=== PATIENT | female | born 1950 | race Caucasian/White ===

== ENCOUNTER → 2016-08-18 | Outpatient (CLI) | payer BC ==
[~2016-08-18] MED LIST: ACC10 PO; ALBINS/ INH; ALBU0.08 INH; ALBUAER INH; APR25 PO; ASPI-435 PO; CARB6.5D11 INT OCU; CLR10 PO; FLNIN NAE; FLUT0.15 NAE; FLUT220A INH; FLVHFA110 INH; HYDRSOL30; INSDGI SC; INSU100I SQ; INSU100I2 SQ; KETO0.0216 OP; KETO0.0216 OPB; LORA-741 PO; MULT-506 PO; PANT40TA PO; POLY335019 PO; PRT/20 PO; QUIN40TA PO; VNTHFA/IN INH; [UNRECOGNIZED DRUG - SUPPLY] NAE
--- NOTE | 2016-08-18 12:45 | DIAGNOSTIC IMAGING REPORT ---
LEFT HAND MIN 3 VIEWS CLINICAL HISTORY: LEFT HAND PAIN/TRIGGER FINGER pain COMPARISON: None. DISCUSSION: Moderate generalized osteopenia of the major osseous structures. Vasquez a potential partial periarticular distribution. Possible early rheumatoid variant is considered. No well-defined acute bony abnormality. Alignment is anatomic. There is no evidence for soft tissue swelling. IMPRESSION: Probable developing rheumatoid change. No acute bony abnormality. Electronically signed by: Ruben Corea M.D. 08/18/2016 12:44 PM Dictated Date/Time: 08/18/2016 12:43 PM
== END | disposition home or self-care (01) ==
LOC: C.RDSM 10:40
PROVIDERS: ATTEND Physical Medicine & Rehabilitation Sports Medicine
DX: M65.30 Trigger finger, unspecified finger (principal)

== ENCOUNTER → 2016-09-06 | Day surgery (SDC) | payer BC ==
[2016-08-19 08:04] VITALS: Ht 162.6 cm; Wt 96.8 kg
[~2016-09-06] VITALS: Ht 162.6 cm; Wt 96.8 kg
[~2016-09-06] MED LIST changes: +ATROPINE SULFATE 0.1 MG/ML 5ML SYR IV PRN; +BUPIVACAINE/EPINEPHRINE 0.5% MPF 1:200,000 30 ML VIAL ONE; +CLINDAMYCIN PHOS 150 MG/ML 2 ML VIAL IV SCH; +EpHEDrine SULFATE INJ 50 MG/ML AMP IV PRN; +FENTANYL CITRATE INJ 50 MCG/1 ML 2 ML VIAL IV PRN; +FENTANYL CITRATE INJ 50 MCG/1 ML 2 ML VIAL ONE; -HYDRSOL30; +LACTATED RINGER'S 1000ML 1,000 ML IV SCH; +LIDOCAINE HCL 1% 20 ML VIAL ONE; +LIDOCAINE HCL 2% 2 ML VIAL (20MG/ML) ONE; +MIDAZOLAM HCL 1 MG/ML 2ML VIAL ONE; +MoRPHine SULFATE 2 MG/ML CARP IV PRN; +MoRPHine SULFATE 4 MG/ML 1 ML CARP\\VIAL IV PRN; +ONDANSETRON INJ 2 MG/ML 2 ML VIAL IV PRN; +OXYCODONE/ACETAMINOPHEN 5-325 TAB PO PRN; +PROPOFOL IV EMULSION 10 MG/ML 20 ML VIAL IV ONE
--- NOTE | 2016-09-06 06:47 | History & Physical Bridge - SC ---
H&P Re-Evaluation Bridge Note: I have examined the patient, reviewed the History & Physical and in the interval since the performance of the History & Physical I have noted the following changes of clinical significance: No changes noted
[2016-09-06 07:46] VITALS: TEMP 36.3
--- NOTE | 2016-09-06 07:51 | Discharge Instructions-SurgCtr ---
Discharge Instructions Visit Reason for Visit: Left Middle Trigger Finger Discharge Discharge Diagnosis / Problem: S/P L MF Trigger finger release. Discharge Goals Goal(s): Decrease discomfort, Improve function, Increase independence Activity Recommendations Activity Limitations: per Instructions/Follow-up section May Resume Sexual Activity: when tolerated Shower/Bathe: may shower/bathe in 3 days Anesthesia . Post Anesthesia Instructions: If you have had General Anesthesia or IV Sedation: * Do not drive today. * Resume driving when surgeon permits. * Do not make important decisions or sign legal documents today. * Call surgeon for: 1. Temperature elevations greater than 101 degrees F. 2. Uncontrollable pain. 3. Excessive bleeding. 4. Persistent nausea and vomiting. 5. Medication intolerance (nausea, vomiting or rash). * For nausea and vomiting use only clear liquids such as: tea, soda, bouillon until nausea subsides, then gradually increase diet as tolerated. * If you have any concerns or questions, call your surgeon's office. If physician is unavailable and it is an emergency, call 911 or go to the nearest emergency room. . Instructions / Follow-Up Instructions / Follow-Up Dr. Edwards in 10-15 days PT 2-3 days Diet Recommendations Home Diet: resume previous diet Procedures Procedures Performed: Left Middle Finger Open Trigger Finger Release Pending Studies Studies pending at discharge: no Medical Emergencies . Who to Call and When: Medical Emergencies: If at any time you feel your situation is an emergency, please call 911 immediately. . Non-Emergent Contact Non-Emergency issues call your: Surgeon Call Non-Emergent contact if: temperature is above 101.5, your pain is not controlled, wound has increased drainage, wound has increased redness . . "Provider Documentation" section prepared by Porfirio Edwards.
--- NOTE | 2016-09-06 07:52 | [facility] Post Operative Brief Note ---
Immediate Operative Summary Operative Date Sep 06, 2016. Pre-Operative Diagnosis Left Middle Finger Trigger Digit Post-Operative Diagnosis Same Procedure(s) Performed Left Middle Finger Open Trigger Finger Release Surgeon Dr. Edwards Dietetic Tech Surgeon(s) Dr. Hale Estimated Blood Loss 3 ML Findings Thickened synovium L MF Flexor tendon sheath. Specimens A. Left Middle Finger Synovium Tendon Sheath Drains n/a Anesthesia Local + sedation Complication(s) None Disposition Recovery Room / PACU (Stable)
--- NOTE | 2016-09-06 07:56 | [facility] Operative Report ---
Operative Report Operative Date Sep 06, 2016. Pre-Operative Diagnosis Left Middle Finger Trigger Digit Post-Operative Diagnosis Same Procedure(s) Performed Left Middle Finger Open Trigger Finger Release Surgeon Dr. Edwards Photocopying Equipment Repairer Surgeon(s) Dr. Hale Estimated Blood Loss 3 ML Findings Thickened synovium L MF Flexor tendon sheath. Fluids (cc crystalloids) 500 Specimens A. Left Middle Finger Synovium Tendon Sheath Drains n/a Anesthesia Local + sedation Complication(s) None Disposition Recovery Room / PACU (Stable) Implants n/a Indications The patient is a 66 year old female with a painful left middle finger trigger her that has not responded to conservative treatment. The patient understands the risks of surgery, which include but are not limited to: bleeding, infection , re-operation, damage to nerves and arteries, and continued pain. The patient understands all of these instructions and explanations, all of their questions have been satisfactorily addressed. The patient has elected to proceed with surgery and the informed consent was signed. Description of Procedure The patient was taken to the Operating Room and placed in the supine position on the operating table. After a multidisciplinary time-out was performed identifying my initials on the left middle finger as the correct and operative limb, the patient agreed. Prior to the incision being made, 600 milligrams of intravenous clindamycin was given. The left arm was prepped and draped in the usual Orthopaedic sterile fashion. A digital nerve block was performed with 6 cc of a 50:50 mix of 1% Lidocaine and 0.5% Bupivacaine plain in the standard fashion. The above mixture was injected along the planned incision for another 2 cc. After the local anesthetic had taken affect, a small 1 cm incision was made in the simental crease in line with the middle finger. This was carried down to the A1 bonifacio. The A1 bonifacio was incised and a small portion was excised as well as some synovium for specimen. The right angle clamp was used to deliver the flexor tendons into the wound. The tendon then glided without catching or locking. The patient was asked to move flex her left middle finger and there was no catching or locking. The wound and tendon sheath were copiously irrigated. The skin was closed with 4-0 Nylon. The incision was covered with Xeroform, 4x4's, sterile cast padding and an JOSE MANUEL. The sponge and needle counts were correct. I attest to the content of the Intraoperative Record and any orders documented therein. Any exceptions are noted below.
--- NOTE | 2016-09-06 08:14 | Anesthesia Progress Nt - [facility] ---
Anesthesia Post Op Note Date & Time Sep 06, 2016 at 08:15 Vital Signs Pain Intensity: 0 Vital Signs Past 12 Hours Date Time Temp Pulse Resp B/P Pulse Ox O2 Delivery O2 Flow Rate FiO2 09/06/16 07:46 36.3 70 16 107/69 95 Room Air 09/06/16 06:29 36.5 61 18 157/82 96 Room Air Notes Mental Status: alert / awake / arousable, participated in evaluation Pt Amnestic to Procedure: Yes Nausea / Vomiting: adequately controlled Pain: adequately controlled Airway Patency, RR, SpO2: stable & adequate BP & HR: stable & adequate Hydration State: stable & adequate Anesthetic Complications: no major complications apparent
[2016-09-06 08:25] VITALS: BP 139/80; PULSE 57; O2SAT 95
--- NOTE | 2016-09-06 13:23 | [facility] Post Operative Brief Note ---
Immediate Operative Summary Operative Date Sep 06, 2016. Pre-Operative Diagnosis Left Middle Finger Trigger Digit Post-Operative Diagnosis Same Procedure(s) Performed Left Middle Finger Open Trigger Finger Release Surgeon Dr. Edwards Funeral Greeter Surgeon(s) Dr. Hale Estimated Blood Loss 3 ML Fluids (cc crystalloids) 500 Specimens A. Left Middle Finger Synovium Tendon Sheath Complication(s) None Disposition PCU
== END | disposition home or self-care (01) ==
LOC: X.SURG 06:14
PROVIDERS: ATTEND Orthopaedic Surgery Sports Medicine
DX: M65.332 Trigger finger, left middle finger (principal); E11.9 Type 2 diabetes mellitus without complications; Z79.4 Long term (current) use of insulin; I10 Essential (primary) hypertension; E78.5 Hyperlipidemia, unspecified; E66.9 Obesity, unspecified; Z79.899 Other long term (current) drug therapy

== ENCOUNTER → 2016-09-27 | Outpatient (CLI) | payer BC ==
[~2016-09-27] MED LIST changes: -ATROPINE SULFATE 0.1 MG/ML 5ML SYR IV PRN; -BUPIVACAINE/EPINEPHRINE 0.5% MPF 1:200,000 30 ML VIAL ONE; -CLINDAMYCIN PHOS 150 MG/ML 2 ML VIAL IV SCH; -EpHEDrine SULFATE INJ 50 MG/ML AMP IV PRN; -FENTANYL CITRATE INJ 50 MCG/1 ML 2 ML VIAL IV PRN; -FENTANYL CITRATE INJ 50 MCG/1 ML 2 ML VIAL ONE; -LACTATED RINGER'S 1000ML 1,000 ML IV SCH; -LIDOCAINE HCL 1% 20 ML VIAL ONE; -LIDOCAINE HCL 2% 2 ML VIAL (20MG/ML) ONE; -MIDAZOLAM HCL 1 MG/ML 2ML VIAL ONE; -MoRPHine SULFATE 2 MG/ML CARP IV PRN; -MoRPHine SULFATE 4 MG/ML 1 ML CARP\\VIAL IV PRN; -ONDANSETRON INJ 2 MG/ML 2 ML VIAL IV PRN; -OXYCODONE/ACETAMINOPHEN 5-325 TAB PO PRN; -PROPOFOL IV EMULSION 10 MG/ML 20 ML VIAL IV ONE
--- NOTE | 2016-09-27 13:55 | MAMMOGRAPHY REPORT ---
BILATERAL DIGITAL SCREENING MAMMOGRAM WITH CAD: 09/27/2016 CLINICAL HISTORY: Routine screening. Patient has no complaints. TECHNIQUE: Bilateral CC and MLO views were obtained. Current study was also evaluated with a Comput er Aided Detection (CAD) system. COMPARISON: Comparison is made to exams dated: 09/03/2014 mammogram, 08/28/2013 mammogram, 08/24/2012 mammogram, 08/18/2011 mammogram, 08/17/2010 mammogram, and 08/13/2009 mammogram - [facility] nter. BREAST COMPOSITION: The tissue of both breasts is almost entirely fatty. FINDINGS: There are a few stable round and punctate microcalcifications in the breasts. No new susp icious mass, architectural distortion or cluster of microcalcifications is seen. IMPRESSION: ACR BI-RADS CATEGORY 1: NEGATIVE There is no mammographic evidence of malignancy. A 1 year screening mammogram is recommended. The p atient will receive written notification of the results. Approximately 10% of breast cancers are not detected with mammography. A negative mammographic repor t should not delay biopsy if a clinically suggestive mass is present. Radha Go M.D. ay/:09/27/2016 08:06:54 Autocad Technician: Maria Teresa Garza, [facility] letter sent: Normal 1/2 BI-RADS Code: ACR BI-RADS Category 1: Negative
== END | disposition home or self-care (01) ==
LOC: C.MAMM 07:23
PROVIDERS: ATTEND Family Medicine
DX: Z12.31 Encounter for screening mammogram for malignant neoplasm of breast (principal)

== ENCOUNTER 2016-10-19 22:35 | Emergency (ER) | payer BC ==
[~2016-10-19] VITALS: Ht 162.6 cm; Wt 99.9 kg
[~2016-10-19 22:35] MED LIST changes: -ALBINS/ INH; -ASPI-435 PO; -CLR10 PO; -FLUT0.15 NAE; -FLVHFA110 INH; -INSU100I2 SQ; -KETO0.0216 OPB; -PRT/20 PO; -QUIN40TA PO; -VNTHFA/IN INH
[2016-10-19 22:37] VITALS: TEMP 36.5; Ht 162.6 cm; Wt 99.9 kg
[2016-10-19] MEDS ORDERED: SODIUM CHLORIDE 0.9% 1000ML 1,000 ML IV STA (22:52)
--- NOTE | 2016-10-19 22:55 | EMERGENCY ROOM VISIT NOTE ---
History Report prepared by Yousuf: Lisa Daniels Under the Supervision of: Dr. Kemal Almaguer M.D. 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 The patient states that earlier today she felt increase in fatigue and laid down and took a nap. She states that when she woke up she felt a "flutter" in her chest. She states it also felt like she would lose her breath for a minute when the flutter occurred. The patient states she then checked her pulse and states that it would be beating strong and then feel like it would stop beating. She states this correlated with her SOB feeling . The patient states she has also had diarrhea and abdominal pain the last few days and thought it was due to a flair up of irritable bowel syndrome. The patient states she has a history of asthma and that it has been doing well and she only uses her inhaler once in a while. The patient denies any chest pain. 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 A total of 10 systems reviewed and were otherwise negative. Past Medical & Surgical Medical Problems: (1) Irritable bowel syndrome (IBS) Family History Patient reports no known family medical history. Social History Smoking Status: Never Smoker Marital Status: Housing Status: lives with significant other Occupation Status: retired Current/Historical Medications Scheduled Aspirin (Aspirin 81), 81 MG PO DAILY Fluticasone Propionate (Flovent Hfa), 2 PUFFS INH BID Fluticasone Propionate (Nasal) (Flonase Allergy Relief), 2 SPRAYS MOI DAILY Hydralazine Hcl (Apresoline), 25 MG PO TID Insulin Glargine (Lantus), 20-22 UNITS SC HS Insulin Lispro (Human) (Humalog Kwikpen), 10-14 UNITS SQ AC Multivitamin (Multivitamin), 1 TAB PO DAILY Pantoprazole (Protonix), 20 MG PO DAILY Polyethylene Glycol 3350 (Miralax), 0.5 DOSE PO QAM Quinapril Hcl (Accupril), 40 MG PO DAILY Scheduled PRN Albuterol Hfa (Ventolin Hfa), 2 PUFFS INH QID PRN for cough/wheezing Albuterol Sulf (Proventil 0.083% 2.5MG/3ML), 2.5 MG INH Q4 PRN for Wheezing Carbamide Peroxide (Otic) (Ear Drops), 1 DROP INT OCU QID PRN for PRESSURE Ketotifen Fumarate (Ophth) (Zaditor 0.025% Oph), 1 DROP OPB Q8H PRN for ALLERGY SX Loratadine (Claritin), 10 MG PO DAILY PRN for allergy sx Lorazepam (Ativan), 0.5 MG PO DAILY PRN for Anxiety Allergies Coded Allergies: Cefdinir (Verified Allergy, Intermediate, UTICARIA, 10/19/16) Glyburide (Verified Allergy, Intermediate, ITCHING, 10/19/16) Moxifloxacin (Verified Allergy, Intermediate, UTICARIA, 10/19/16) Penicillins (Verified Allergy, Intermediate, HIVES, 10/19/16) Sulfa Antibiotics (Verified Allergy, Intermediate, HIVES, 10/19/16) Sulfamethoxazole w/Trimethoprim (Verified Allergy, Intermediate, HIVES, 05/27) Trimethoprim (Verified Allergy, Intermediate, HIVES, 10/19/16) Quinolones (Verified Allergy, Unknown, HEADACHES, 10/19/16) Sulfamethoxazole (Verified Allergy, Unknown, 10/19/16) Ciprofloxacin (Verified Adverse Reaction, Mild, HEADACHES, 10/19/16) Physical Exam Vital Signs Date Time Temp Pulse Resp B/P Pulse Ox O2 Delivery O2 Flow Rate FiO2 10/19/16 23:58 78 20 135/76 98 10/19/16 22:58 96 Room Air 10/19/16 22:50 76 10/19/16 22:48 96 Room Air 10/19/16 22:47 82 20 192/74 10/19/16 22:45 96 Room Air 10/19/16 22:37 36.5 80 16 192/82 96 Room Air Physical Exam GENERAL: Patient is a healthy-appearing well-nourished HEAD: Normocephalic atraumatic EYES: Ocular movements intact pupils equal and react to light OROPHARYNX mucous membranes are moist no exudates present no erythema or edema present NECK: Supple no nuchal rigidity CHEST: Good equal expansion LUNGS: Clear and equal to auscultation CARDIAC: Normal S1 and S2 ABDOMEN: Soft nontender no guarding BACK: No CVA tenderness EXTREMITIES: No pain upon palpation normal muscle strength in all groups no clubbing cyanosis or edema NEURO: Patient is following commands is answering questions appropriately. Alert and oriented x3 Cranial Nerves 2-12 grossly intact Medical Decision & Procedures ER Provider Diagnostic Interpretation: X-ray results as stated below per interpretation by me: Chest X-Ray 1 View: no evidence of pneumonia, congestion, or pneumothorax. No acute process. Laboratory Results 10/19/16 22:55 Red Blood Count 4.80, Mean Corpuscular Volume 87.7, Mean Corpuscular Hemoglobin 29.8, Mean Corpuscular Hemoglobin Concent 34.0, Mean Platelet Volume 10.2, Neutrophils (%) (Auto) 56.5, Lymphocytes (%) (Auto) 32.0, Monocytes (%) (Auto) 8.7, Eosinophils (%) (Auto) 2.2, Basophils (%) (Auto) 0.4, Neutrophils # (Auto) 4.68, Lymphocytes # (Auto) 2.65, Monocytes # (Auto) 0.72, Eosinophils # (Auto) 0.18, Basophils # (Auto) 0.03 10/19/16 22:55 Test 10/19/16 22:55 White Blood Count 8.28 K/uL (4.8-10.8) Red Blood Count 4.80 M/uL (4.2-5.4) Hemoglobin 14.3 g/dL (12.0-16.0) Hematocrit 42.1 % (37-47) Mean Corpuscular Volume 87.7 fL (80-100) Mean Corpuscular Hemoglobin 29.8 pg (25-34) Mean Corpuscular Hemoglobin Concent 34.0 g/dl (32-36) Platelet Count 277 K/uL (130-400) Mean Platelet Volume 10.2 fL (7.4-10.4) Neutrophils (%) (Auto) 56.5 % Lymphocytes (%) (Auto) 32.0 % Monocytes (%) (Auto) 8.7 % Eosinophils (%) (Auto) 2.2 % Basophils (%) (Auto) 0.4 % Neutrophils # (Auto) 4.68 K/uL (1.4-6.5) Lymphocytes # (Auto) 2.65 K/uL (1.2-3.4) Monocytes # (Auto) 0.72 K/uL (0.11-0.59) Eosinophils # (Auto) 0.18 K/uL (0-0.5) Basophils # (Auto) 0.03 K/uL (0-0.2) RDW Standard Deviation 45.2 fL (36.4-46.3) RDW Coefficient of Variation 13.9 % (11.5-14.5) Immature Granulocyte % (Auto) 0.2 % Immature Granulocyte # (Auto) 0.02 K/uL (0.00-0.02) Anion Gap 9.0 mmol/L (3-11) Est Creatinine Clear Calc Drug Dose 67.1 ml/min Estimated GFR () 71.9 Estimated GFR (Non- 62.1 BUN/Creatinine Ratio 16.1 (10-20) Calcium Level 8.5 mg/dl (8.5-10.1) Magnesium Level 2.2 mg/dl (1.8-2.4) Total Bilirubin 0.3 mg/dl (0.2-1) Direct Bilirubin < 0.1 mg/dl (0-0.2) Aspartate Amino Transf (AST/SGOT) 12 U/L (15-37) Alanine Aminotransferase (ALT/SGPT) 20 U/L (12-78) Alkaline Phosphatase 211 U/L (45-117) Total Creatine Kinase 112 U/L (26-192) Creatine Kinase MB 1.5 ng/ml (0.5-3.6) Creatine Kinase MB Ratio 1.3 (0-3.0) Troponin I < 0.015 ng/ml (0-0.045) Total Protein 7.1 gm/dl (6.4-8.2) Albumin 3.7 gm/dl (3.4-5.0) Lipase 117 U/L (73-393) Labs reviewed by ED physician. Medications Administered Medications (Trade) Dose Ordered Sig/Katherine Route Start Time Stop Time Status Last Admin Dose Admin Sodium Chloride (Nss 1000ml) 1,000 ml @ 999 mls/hr Q1H1M STAT IV 10/19/16 22:52 10/19/16 23:52 DC 10/19/16 23:03 999 MLS/HR Hydralazine HCl (Apresoline Tab) 25 mg NOW STAT PO 10/19/16 22:54 10/19/16 22:55 DC 10/19/16 23:07 25 MG Potassium Chloride (Klor-Con M10) 30 meq NOW STAT PO 10/19/16 23:29 10/19/16 23:30 DC 10/19/16 23:53 30 MEQ ECG Indication: chest pain Rate (beats per minute): 81 Rhythm: sinus rhythm Findings: PVC, no acute ischemic change, no ectopy ED Course 2242: Past medical records reviewed. The patient was evaluated in room A2. A complete history and physical examination was performed. 2251: Ordered Sodium Chloride 1,000 ml @ 999 mls/hr IV, 2253: Ordered Hydralazine HCl 25 mg PO. 9: Ordered Potassium Chloride 30 meq PO. 2345: Upon reexamination the patient is resting comfortably. I discussed results and treatment plan with the patient. She verbalizes agreement and understanding. The patient is ready for discharge. Medical Decision Differential diagnosis: Etiologies such as cardiac ischemia, aortic dissection, pulmonary embolism, pneumonia, pneumothorax, musculoskeletal, infections, pericarditis, myocarditis , esophageal rupture, gastrointestinal, as well as others were entertained. This is a 66-year-old female who presents emergency department complaining of palpitations. Upon arrival to the emergency department the patient is actively having PVCs which I believe are the cause of her palpitations. She is not nature fibrillation. She denies any chest pain or shortness of breath and. I will note that the patient's sugar is elevated at 200. For this reason she was given IV fluids. The patient's blood pressure is also elevated however I believe that this is more from anxiety than anything else. I discussed the need for follow-up with the patient's primary care physician for her hypertension. She is also going to follow-up with cardiology for her PVCs. She was given potassium in the emergency department and I cautioned her on better control of her sugar. Patient was in agreement with the treatment plan. Impression Primary Impression: PVC (premature ventricular contraction) Additional Impressions: Hyperglycemia Hypertension Scribe Attestation The scribe's documentation has been prepared under my direction and personally reviewed by me in its entirety. I confirm that the note above accurately reflects all work, treatment, procedures, and medical decision making performed by me. Departure Information Dispostion Home / Self-Care Referrals Katalina Miller M.D. (PCP) Forms IMPORTANT VISIT INFORMATION Patient Instructions My [facility] Additional Instructions Need follow up with PCP for hypertension Please follow up with DR Khan's office for PVC's You have been examined and treated today on an emergency basis only. This is not a substitute for, or an effort to provide, complete comprehensive medical care. It is impossible to recognize and treat all injuries or illnesses in a single emergency department visit. It is therefore important that you follow up closely with Dr Miller. Call as soon as possible for an appointment. Thank you for your time and consideration. I look forward to speaking with you again soon. Please don't hesitate to call us if you have any questions. Problem Qualifiers Additional Impressions: Hypertension Hypertension type: unspecified secondary hypertension Qualified Codes: I15.9 - Secondary hypertension, unspecified
[2016-10-19 22:58] VITALS: O2SAT 96
[2016-10-19 23:07] LABS: BASO % 0.4 %; BASO ABS # 0.03 K/uL (0-0.2); COMPLETE YES; EOS % 2.2 %; HEMATOCRIT 42.1 % (37-47); IG% 0.2 %; LYMPH ABS # 2.65 K/uL (1.2-3.4); MEAN CELL VOLUME 87.7 fL (80-100); MEAN CORPUSCULAR HEMOGLOBIN 29.8 pg (25-34); MEAN PLATELET VOLUME 10.2 fL (7.4-10.4); MONO % 8.7 %; NEUT % 56.5 %; PLATELET COUNT 277 K/uL (130-400); WHITE BLOOD COUNT 8.28 K/uL (4.8-10.8)
[2016-10-19] MEDS ORDERED: ASPI-435 PO (23:21)
[2016-10-19] MEDS ORDERED: CLR10 PO (23:22)
[2016-10-19] MEDS ORDERED: ALBINS/ INH (23:24)
[2016-10-19] MEDS ORDERED: VNTHFA/IN INH (23:24)
[2016-10-19 23:26] LABS: ALT/SGPT 20 U/L (12-78); BLOOD UREA NITROGEN 16 mg/dl (7-18); BUN/CREATININE RATIO 16.1 (10-20); CALCIUM 8.5 mg/dl (8.5-10.1); CARBON DIOXIDE 26 mmol/L (21-32); CHLORIDE 106 mmol/L (98-107); CREATININE 0.96 mg/dl (0.60-1.20); GLUCOSE 191 mg/dl (70-99); MAGNESIUM 2.2 mg/dl (1.8-2.4); POTASSIUM 3.7 mmol/L (3.5-5.1); SODIUM 141 mmol/L (136-145)
[2016-10-19] MEDS ORDERED: PRT/20 PO (23:27)
[2016-10-19] MEDS ORDERED: QUIN40TA PO (23:27)
[2016-10-19] MEDS ORDERED: MULT-506 PO (23:27)
[2016-10-19 23:29] LABS: ALKALINE PHOSPHATASE 211 U/L (45-117); AST/SGOT 12 U/L (15-37); CKMB/CK RATIO 1.3 (0-3.0)
[2016-10-19] MEDS ORDERED: POTASSIUM CHLORIDE 10 MEQ TABCR PO STA (23:29)
[2016-10-19] MEDS ORDERED: FLUT0.15 NAE (23:34)
[2016-10-19] MEDS ORDERED: INSDGI SC (23:35)
[2016-10-19] MEDS ORDERED: INSU100I2 SQ (23:36)
[2016-10-19] MEDS ORDERED: FLVHFA110 INH (23:38)
[2016-10-19] MEDS ORDERED: KETO0.0216 OPB (23:39)
[2016-10-19 23:58] VITALS: BP 135/76; PULSE 78; O2SAT 98
--- NOTE | 2016-10-20 07:48 | DIAGNOSTIC IMAGING REPORT ---
SINGLE VIEW CHEST CLINICAL HISTORY: Atypical chest pain. FINDINGS: An AP, portable, upright chest radiograph is compared to study dated 03/11/2011. The examination is degraded by portable technique, large body habitus, and patient rotation. The heart is top normal for projection. The pulmonary vasculature is noncongested. Chronic interstitial thickening is unchanged. The lungs and pleural spaces are clear. No pneumothorax is seen. The skeletal structures are osteopenic. The bony thorax is grossly intact. IMPRESSION: No acute cardiopulmonary abnormality. Electronically signed by: Josesito Tineo M.D. 10/20/2016 7:46 AM Dictated Date/Time: 10/20/2016 7:45 AM
== END 2016-10-19 23:58 | disposition home or self-care (01) ==
LOC: C.EDB 22:36 → C.EDA 23:58
DX: I49.3 Ventricular premature depolarization (principal); R73.9 Hyperglycemia, unspecified; I15.9 Secondary hypertension, unspecified; K58.9 Irritable bowel syndrome, unspecified; Z79.82 Long term (current) use of aspirin; Z79.4 Long term (current) use of insulin; Z79.899 Other long term (current) drug therapy

== ENCOUNTER → 2017-02-15 | Outpatient (CLI) | payer BC ==
[~2017-02-15] MED LIST changes: -ACC10 PO; +ALBINS/ INH; -ALBU0.08 INH; -ALBUAER INH; +ASPI-435 PO; +CLR10 PO; -FLNIN NAE; +FLUT0.15 NAE; -FLUT220A INH; +FLVHFA110 INH; -INSU100I SQ; +INSU100I2 SQ; -KETO0.0216 OP; +KETO0.0216 OPB; -PANT40TA PO; +PRT/20 PO; +QUIN40TA PO; +VNTHFA/IN INH; -[UNRECOGNIZED DRUG - SUPPLY] NAE
== END | disposition home or self-care (01) ==
LOC: C.MAMM 08:16
PROVIDERS: ATTEND Family Medicine
DX: Z13.820 Encounter for screening for osteoporosis (principal); M85.851 Other specified disorders of bone density and structure, right thigh; M85.852 Other specified disorders of bone density and structure, left thigh

== ENCOUNTER → 2017-09-29 | Outpatient (CLI) | payer BC ==
--- NOTE | 2017-09-29 15:09 | MAMMOGRAPHY REPORT ---
BILATERAL DIGITAL SCREENING MAMMOGRAM TOMOSYNTHESIS WITH CAD: 09/29/2017 CLINICAL HISTORY: Routine screening. Patient has no complaints. TECHNIQUE: Breast tomosynthesis in addition to standard 2D mammography was performed. Current study was also evaluated with a Computer Aided Detection (CAD) system. COMPARISON: Comparison is made to exams dated: 09/27/2016 mammogram, 09/24/2015 mammogram, 09/03/2014 m ammogram, 08/28/2013 mammogram, 08/24/2012 mammogram, and 08/18/2011 mammogram - [facility] nter. BREAST COMPOSITION: The tissue of both breasts is almost entirely fatty. FINDINGS: No suspicious masses, calcifications, or areas of architectural distortion are noted in ei ther breast. There has been no significant interval change compared to prior exams. IMPRESSION: ACR BI-RADS CATEGORY 1: NEGATIVE There is no mammographic evidence of malignancy. A 1 year screening mammogram is recommended. The pa tient will receive written notification of the results. Approximately 10% of breast cancers are not detected with mammography. A negative mammographic report should not delay biopsy if a clinically suggestive mass is present. Isis Clifton M.D. /:09/29/2017 07:59:20 Charcoal Unloader: Maria Teresa ANTOINE(R)(M), [facility] letter sent: Normal 1/2 BI-RADS Code: ACR BI-RADS Category 1: Negative
== END | disposition home or self-care (01) ==
LOC: C.MAMM 07:43
PROVIDERS: ATTEND Family Medicine
DX: Z12.31 Encounter for screening mammogram for malignant neoplasm of breast (principal)

== ENCOUNTER → 2018-02-21 | Day surgery (SDC) | payer BC ==
[2018-02-13 15:14] VITALS: Ht 162.6 cm; Wt 97.7 kg
[~2018-02-21] VITALS: Ht 162.6 cm; Wt 97.7 kg
[~2018-02-21] MED LIST changes: +ATROPINE SULFATE 0.1 MG/ML 5ML SYR IV PRN; -CLR10 PO; +COEN1CAP7 PO; +DICY10CA12 PO; +EpHEDrine SULFATE INJ 50 MG/ML AMP IV PRN; +LIDOCAINE HCL 2% 2 ML VIAL (20MG/ML) ONE; +PROPOFOL IV EMULSION 10 MG/ML 20 ML VIAL ONE
[2018-02-21 09:04] VITALS: TEMP 36.2
--- NOTE | 2018-02-21 09:29 | Endo History and Physical ---
History & Physical Date of Service: Feb 21, 2018. Chief Complaint: DYSPHAGIA Referring Physician: DR. GRAY History of Present Illness 67 yo CF who presents for EGD secondary to dysphagia. Past Medical History Diabetes, Asthma, Gastrointestinal Disorder, Reflux, High Cholesterol, Hypertension Past Surgical History Hx Cardiac Surgery: No Hx Internal Defibrillator: No Hx Pacemaker: No Hx Abdominal Surgery: Yes ([facility] BSO) Hx of Implantable Prosthesis: No Hx Post-Op Nausea and Vomiting: No Hx Cancer Surgery: No Hx Thoracic Surgery: No Hx Orthopedic: Yes (RT SHOULDER SCOPE, LT KNEE SCOPE, L4 SPUR REMOVAL,TRIGGER FINGER L HAND) Hx Urinary Tract Surgery: No Family History Colon CA, Polyp Social History Smoking Status: Former Smoker Hx Substance Use: No Hx Alcohol Use: No (RARELY) Allergies Coded Allergies: Cefdinir (Verified Allergy, Intermediate, UTICARIA, 02/13/18) Glyburide (Verified Allergy, Intermediate, ITCHING, 02/13/18) Moxifloxacin (Verified Allergy, Intermediate, UTICARIA, 02/13/18) Penicillins (Verified Allergy, Intermediate, HIVES, 02/13/18) Sulfa Antibiotics (Verified Allergy, Intermediate, HIVES, 02/13/18) Sulfamethoxazole w/Trimethoprim (Verified Allergy, Intermediate, HIVES, 02/13/18) Trimethoprim (Verified Allergy, Intermediate, HIVES, 02/13/18) Quinolones (Verified Allergy, Unknown, HEADACHES, 02/13/18) Sulfamethoxazole (Verified Allergy, Unknown, HIVES, 02/13/18) Ciprofloxacin (Verified Adverse Reaction, Mild, HEADACHES, 02/21/18) Current Medications Reported Home Medications Medications Dose Route/Sig Max Daily Dose Days Date Category Dose Instructions Coq10 (Coenzyme Q10 (Ubidecarenone)) 200 Mg Cap 200 Mg PO QAM 02/13/18 Reported Dicyclomine Hcl 10 Mg Cap 1 Cap PO TID PRN 30 02/13/18 Reported Zaditor 0.025% Oph (Ketotifen Fumarate (Ophth)) 0.025 % Lan 1 Drop OPB Q8H PRN 10/19/16 Reported Flovent Hfa (Fluticasone Propionate) 120 Puffs/22102 Mcg Aero 2 Puffs INH BID PRN 30 10/19/16 Reported Humalog Kwikpen (Insulin Lispro (Human)) 100 Unit/Ml Inj 10-14 Units SQ AC 10/19/16 Reported Lantus (Insulin Glargine) 100 Unit/Ml Inj 20-22 Units SC HS 10/19/16 Reported Flonase Allergy Relief (Fluticasone Propionate (Nasal)) 50 Mcg/Act Spr 2 Sprays MOI BID 10/19/16 Reported ALLERGY SYMPTOMS Multivitamin (Multivitamins) Tab 1 Tab PO QAM 10/19/16 Reported Accupril (Quinapril Hcl) 40 Mg Tab 40 Mg PO QAM 10/19/16 Reported Protonix (Pantoprazole Sodium) 20 Mg Tab 20 Mg PO HS 10/19/16 Reported Ventolin Hfa (Albuterol) 200 Puffs/18825 Mcg Aers 2 Puffs INH QID PRN 10/19/16 Reported Proventil 0.083% 2.5MG/3ML (Albuterol Sulf) 2.5 Mg/3 Ml Nebu 2.5 Mg INH Q4 PRN 10/19/16 Reported Aspirin 81 (Aspirin) 81 Mg Tab 81 Mg PO QAM 10/19/16 Reported Ear Drops (Carbamide Peroxide (Otic)) 6.5 % Arlen 1 Drop INT OCU QID PRN 08/19/16 Reported Miralax (Polyethylene Glycol 3350) 1 Pow Pow 0.5 Dose PO QAM 09/02/15 Reported Ativan (Lorazepam) 0.5 Mg Tab 0.5 Mg PO DAILY PRN 05/03/14 Reported Apresoline (Hydralazine Hcl) 25 Mg Tab 25 Mg PO TID 05/03/14 Reported Vital Signs Weight (Kilograms): 97.73 Height (Feet): 5 Height (Inches): 4 Date Time Temp Pulse Resp B/P (MAP) Pulse Ox O2 Delivery O2 Flow Rate FiO2 02/21/18 09:04 36.2 80 16 173/66 (101) 97 Room Air 97 Physical Exam General Appearance: WD/WN, no apparent distress Respiratory/Chest: Auscultation: breath sounds normal Cardiovascular: Heart Auscultation: RRR Abdomen: Bowel Sounds: normal Inspection & Palpation: soft, non-distended, no tenderness, guarding & rebound Assessment and Plan Assessment: 67 yo CF who presents for EGD secondary to dysphagia. Plan: Proceed with EGD.
--- NOTE | 2018-02-21 10:22 | GI REPORT ---
Patient Name: Mayelin Platt Procedure Date: 02/21/2018 9:11 AM Date of : 1950 Admit Type: Outpatient Age: 67 Gender: Female Attending MD: Reinaldo Ritter DO Procedure: Upper GI endoscopy Providers: Reinaldo Ritter DO Referring MD: Candice Reyes Indications: Dysphagia Medicines: Monitored Anesthesia Care Complications: No immediate complications. Estimated Blood Loss: Estimated blood loss: none. Procedure: Pre-Anesthesia Assessment: - Prior to the procedure, a History and Physical was performed, and patient medications and allergies were reviewed. The patient's tolerance of previous anesthesia was also reviewed. The risks and benefits of the procedure and the sedation options and risks were discussed with the patient. All questions were answered, and informed consent was obtained. Prior Anticoagulants: The patient has taken aspirin, last dose was 3 days prior to procedure. ASA Grade Assessment: IV - A patient with severe systemic disease that is a constant threat to life. After reviewing the risks and benefits, the patient was deemed in satisfactory condition to undergo the procedure. After obtaining informed consent, the endoscope was passed under direct vision. Throughout the procedure, the patient's blood pressure, pulse, and oxygen saturations were monitored continuously. The scope was introduced through the mouth, and advanced to the second part of duodenum. The upper GI endoscopy was accomplished without difficulty. The patient tolerated the procedure well. Findings: Probable candidiasis was found in the upper third of the esophagus. Cells for cytology were obtained by brushing. A small hiatal hernia was present. Biopsies were taken with a cold forceps in the gastric antrum for Helicobacter pylori testing. Few non-bleeding superficial duodenal ulcers with no stigmata of bleeding were found in the duodenal bulb. The largest lesion was 5 mm in largest dimension. Impression: - Monilial esophagitis. Cells for cytology obtained. - Small hiatal hernia. - Multiple non-bleeding duodenal ulcers with no stigmata of bleeding. - Biopsies were taken with a cold forceps for Helicobacter pylori testing. Recommendation: - Resume previous diet. - Continue present medications. - Await pathology results. - Return to primary care physician as previously scheduled. Reinaldo Ritter DO 02/21/2018 10:22:17 AM This report has been signed electronically. Note Initiated On: 02/21/2018 9:11 AM Number of Addenda: 0 I attest to the content of the Intraoperative Record and orders documented therein, exceptions below {[id number]}
--- NOTE | 2018-02-21 10:36 | Anesthesiology Progress Note ---
Anesthesia Post Op Note Date & Time Feb 21, 2018 at 10:36 Vital Signs Pain Intensity: 0 Vital Signs Past 12 Hours Date Time Temp Pulse Resp B/P (MAP) Pulse Ox O2 Delivery O2 Flow Rate FiO2 02/21/18 10:28 66 16 139/63 (88) 95 Room Air 02/21/18 10:13 74 14 123/55 (77) 94 Room Air 02/21/18 09:04 36.2 80 16 173/66 (101) 97 Room Air 97 Notes Mental Status: alert / awake / arousable, participated in evaluation Pt Amnestic to Procedure: Yes Nausea / Vomiting: adequately controlled Pain: adequately controlled Airway Patency, RR, SpO2: stable & adequate BP & HR: stable & adequate Hydration State: stable & adequate Anesthetic Complications: no major complications apparent
[2018-02-21 10:43] VITALS: BP 149/84; PULSE 69; O2SAT 96
--- NOTE | 2018-02-21 10:58 | Discharge Instructions ---
Endoscopy Patient Instructions Date / Procedure(s) Performed Feb 21, 2018. EGD Allergy Information Coded Allergies: Cefdinir (Verified Allergy, Intermediate, UTICARIA, 02/13/18) Glyburide (Verified Allergy, Intermediate, ITCHING, 02/13/18) Moxifloxacin (Verified Allergy, Intermediate, UTICARIA, 02/13/18) Penicillins (Verified Allergy, Intermediate, HIVES, 02/13/18) Sulfa Antibiotics (Verified Allergy, Intermediate, HIVES, 02/13/18) Sulfamethoxazole w/Trimethoprim (Verified Allergy, Intermediate, HIVES, 02/13/18) Trimethoprim (Verified Allergy, Intermediate, HIVES, 02/13/18) Quinolones (Verified Allergy, Unknown, HEADACHES, 02/13/18) Sulfamethoxazole (Verified Allergy, Unknown, HIVES, 02/13/18) Ciprofloxacin (Verified Adverse Reaction, Mild, HEADACHES, 02/21/18) Discharge Date / Findings Feb 21, 2018. Duodenal ulcers Gastric antrum biopsies Hiatal hernia Probable vick esophagitis s/p brushings Medication Instructions Stopped Medication(s): ASPIRIN HELD FOR WEEK OK to resume all medications today as prescribed Reported Home Medications Medications Dose Route/Sig Max Daily Dose Days Date Category Dose Instructions Coq10 (Coenzyme Q10 (Ubidecarenone)) 200 Mg Cap 200 Mg PO QAM 02/13/18 Reported Dicyclomine Hcl 10 Mg Cap 1 Cap PO TID PRN 30 02/13/18 Reported Zaditor 0.025% Oph (Ketotifen Fumarate (Ophth)) 0.025 % Lan 1 Drop OPB Q8H PRN 10/19/16 Reported Flovent Hfa (Fluticasone Propionate) 120 Puffs/49291 Mcg Aero 2 Puffs INH BID PRN 30 10/19/16 Reported Humalog Kwikpen (Insulin Lispro (Human)) 100 Unit/Ml Inj 10-14 Units SQ AC 10/19/16 Reported Lantus (Insulin Glargine) 100 Unit/Ml Inj 20-22 Units SC HS 10/19/16 Reported Flonase Allergy Relief (Fluticasone Propionate (Nasal)) 50 Mcg/Act Spr 2 Sprays MOI BID 10/19/16 Reported ALLERGY SYMPTOMS Multivitamin (Multivitamins) Tab 1 Tab PO QAM 10/19/16 Reported Accupril (Quinapril Hcl) 40 Mg Tab 40 Mg PO QAM 10/19/16 Reported Protonix (Pantoprazole Sodium) 20 Mg Tab 20 Mg PO HS 10/19/16 Reported Ventolin Hfa (Albuterol) 200 Puffs/21262 Mcg Aers 2 Puffs INH QID PRN 10/19/16 Reported Proventil 0.083% 2.5MG/3ML (Albuterol Sulf) 2.5 Mg/3 Ml Nebu 2.5 Mg INH Q4 PRN 10/19/16 Reported Aspirin 81 (Aspirin) 81 Mg Tab 81 Mg PO QAM 10/19/16 Reported Ear Drops (Carbamide Peroxide (Otic)) 6.5 % Arlen 1 Drop INT OCU QID PRN 08/19/16 Reported Miralax (Polyethylene Glycol 3350) 1 Pow Pow 0.5 Dose PO QAM 09/02/15 Reported Ativan (Lorazepam) 0.5 Mg Tab 0.5 Mg PO DAILY PRN 05/03/14 Reported Apresoline (Hydralazine Hcl) 25 Mg Tab 25 Mg PO TID 05/03/14 Reported Provider Instructions Activity Restrictions - No exercising or heavy lifting for 24 hours. - Do not drink alcohol the day of the procedure. - Do not drive a car or operate machinery until the day after the procedure. - Do not make any important decisions or sign important papers in 24 hours after the procedure. Following Day: - Return to full activity which may include returning to work/school. Diet Start your diet with liquids and light foods (jello, soup, juice, toast). Then eat your usual diet if not nauseated. Treatment For Common After Affects For mild abdominal pain, bloating, or excessive gas: - Rest - Eat lightly - Lie on right side Follow-Up Information Follow-up with DR. GRAY as scheduled Anesthesia Information What You Should Know You have had a procedure that required some medicine to reduce anxiety and discomfort. This treatment is called moderate sedation. After receiving the treatment, you may be sleepy, but you will be able to breathe on your own. The effects of the treatment may last for several hours. Follow these instructions along with Activity/Diet recommendations noted above: * Do NOT do anything where dizziness or clumsiness would be dangerous. * Rest quietly at home today, then you can be up and about tomorrow. * Have a responsible person stay with you the rest of today. * You may have had an I.V. today. If so, you may take the dressing off later today. Recommendations Call your doctor if: * Trouble breathing * Continuous vomiting for more than 24 hours * Temperature above 101 degrees * Severe abdominal pain or bloating * Pain not relieved by pain medicine ordered * There is increased drainage or redness from any incision * A large amount of rectal bleeding greater than 2-3 tablespoons. (If you had a polyp/s removed or have hemorrhoids, a small amount of blood - from the rectum is to be expected.) * You have any unanswered questions or concerns. IN THE EVENT OF A SERIOUS EMERGENCY, GO TO THE NEAREST EMERGENCY ROOM Your discharge instructions were prepared by provider Reinaldo Ritter. Patient Instructions Signature Page Mayelin Giulia Patient (or Guardian) Signature/Date: I have read and understand the instructions given to me by my caregivers. Caregiver/RN/Doctor Signature/Date: The above-named patient and/or guardian has received patient instructions on this date. + Original Patient Signature Page (only) stays with chart. Please make copy for patient.
== END | disposition home or self-care (01) ==
LOC: C.GI 08:34
PROVIDERS: ATTEND Internal Medicine
DX: R13.10 Dysphagia, unspecified (principal); K44.9 Diaphragmatic hernia without obstruction or gangrene; K26.9 Duodenal ulcer, unspecified as acute or chronic, without hemorrhage or perforation; K20.8 Other esophagitis; K29.50 Unspecified chronic gastritis without bleeding; J45.909 Unspecified asthma, uncomplicated; I10 Essential (primary) hypertension; E11.9 Type 2 diabetes mellitus without complications; E78.00 Pure hypercholesterolemia, unspecified; Z80.0 Family history of malignant neoplasm of digestive organs; Z88.0 Allergy status to penicillin; Z88.1 Allergy status to other antibiotic agents; Z88.2 Allergy status to sulfonamides; Z88.8 Allergy status to other drugs, medicaments and biological substances; Z79.4 Long term (current) use of insulin; Z79.899 Other long term (current) drug therapy; Z79.82 Long term (current) use of aspirin; E66.9 Obesity, unspecified; Z68.37 Body mass index [BMI] 37.0-37.9, adult; Z87.891 Personal history of nicotine dependence

== ENCOUNTER 2021-05-06 09:00 | Inpatient (IN) ==
[2021-05-06] MEDS ORDERED: dexAMETHasone**PF** 10 MG/ML VIAL IV ONE (09:32)
[2021-05-06] MEDS ORDERED: SODIUM CHLORIDE 0.9% 1000ML 1,000 ML IV STA (09:32)
[2021-05-06] MEDS ORDERED: ALBUT/IPRATROP 3MG/0.5MG NEB 3 ML VIAL NEB STA (09:32)
[2021-05-06] MEDS ORDERED: HYDROcodone/HOMATROPINE SYRUP 5MG/1.5MG 5ML UDP PO STA (09:32)
[2021-05-06] MEDS ORDERED: ACETAMINOPHEN 500 MG TAB PO STA (09:32)
[2021-05-06 09:38] LABS: Basophils # (auto) 0.01 K/uL (0-0.2); Basophils % (auto) 0.1 %; Hematocrit (blood only) 38.6 % (37-47); Hemoglobin 13.3 g/dL (12.0-16.0); Immature Granulocytes # (auto) 0.19 K/uL (0.00-0.02); Immature Granulocytes % (auto) 1.7 %; Lymphocytes # (auto) 1.53 K/uL (1.2-3.4); Lymphocytes % (auto) 13.3 %; Mean Corpuscular Hemoglobin 29.4 pg (25-34); Mean Corpuscular Hgb Conc 34.5 g/dL (32-36); Mean Corpuscular Volume 85.2 fL (80-100); Mean Platelet Volume 9.5 fL (7.4-10.4); Monocytes % (auto) 6.1 %; Neutrophils # (auto) 9.07 K/uL (1.4-6.5); Neutrophils % (auto) 78.8 %; Platelet Count 443 K/uL (130-400); RDW Coefficient of Variation 13.6 % (11.5-14.5); RDW Standard Deviation 42.5 fL (36.4-46.3); Red Blood Count 4.53 M/uL (4.2-5.4)
--- NOTE | 2021-05-06 09:39 | Emergency Department Note ---
Impression & Plan COVID-19, Hypoxia, Left-sided chest pain ED Provider Note INFORMANT: Patient ED PROVIDER(S): Brayden Smalls MD CHIEF COMPLAINT: Shortness of breath PLAN: Disposition: Admitted Condition: Guarded Outpatient prescription management: none Referral: None MEDICAL DECISION MAKING: Patient presented because of worsening shortness of breath and hypoxia with known Covid. She had a mild leukocytosis on CBC. Her D-dimer was elevated. Chemistry panel was consistent with dehydration. Patient elevated CRP. Chest x-ray was concerning for pneumonia. Her CT scan did not show any evidence of thromboembolic disease but showed significant pneumonia consistent with COVID- 19. Patient did respond well to supplemental oxygen as well as Tylenol, nebulizer treatment of albuterol, Decadron. Further management in the hospital be necessary. Consultation was made with the internal medicine team. Patient was evaluated in the ER admitted for further management. Triage Nursing notes reviewed and agree them. Vital Signs: reviewed and remarkable for hypoxia Differential diagnosis: COVID-19, reactive airway disease, pneumonia, pneumothorax, COPD, CHF, infections, cardiac ischemia, pulmonary embolism, musculoskeletal, gastrointestinal, as well as other pathologies. Diagnostics interpreted by me: ECG: Twelve-lead ECG reveals sinus rhythm with bigeminy at [address] elevation or depression. Nonspecific ST. Cardiac Monitoring: Cardiac monitoring ordered by me: The patient was placed on continuous cardiac monitoring and observed. It revealed a sinus rhythm at 60 bpm. Imaging studies: Chest x-ray and CT scan as above. Consistent with COVID-19 pneumonia. HPI: The patient is a 71 year old female who presents to the Emergency Room with complaints of shortness of breath. This started over the last 2 weeks and is worsening over the last 2 days. The patient also notes the following associated symptoms, fever, cough, left-sided chest pain, fatigue, poor appetite, weight loss. The patient was developing cold symptoms on April 20. She was tested on April 24. Her test as an outpatient returned positive for COVID-19 on the . The patient was in the ER on the and prescribed steroids. The patient states she noted some improvement with the steroids and her fever seemed to raegan. The patient was still having significant cough. Her shortness of breath worsened. Her O2 saturations at home fell and she was hypoxic. EMS was summoned. Current pain is rated as 5/10. Pt denies LOC, headache, diaphoresis, visual changes, neck pain, nausea, vomiting, abdominal pain, back pain, diarrhea, urinary symptoms, numbness, weakness, lymphadenopathy, rash, or other complaints. ROS: See above HPI for pertinent positives & negatives. A total of 10 systems reviewed and were otherwise negative. PAST MEDICAL HISTORY:See Below , diabetes, hypertension PAST SURGICAL HISTORY:See Below, FAMILY HISTORY:See Below SOCIAL HISTORY:See Below, HOME MEDICATIONS:See Below ALLERGIES:See Below VITALS:See Below PHYSICAL EXAMINATION: GENERAL: Awake, alert, dyspneic-appearing, in no distress HENT: Normocephalic, atraumatic. Oropharynx unremarkable. EYES: Normal conjunctiva. Sclera non-icteric. NECK: Inspection normal. Non-tender. Supple. No nuchal rigidity. FROM. No masses. RESPIRATORY: Relatively clear to auscultation. No wheezes. Scattered rales. Increased respiratory effort. CARDIAC: Normal rate. Normal rhythm. No murmurs. No rubs. Extremities warm and well perfused. Pulses equal. No JVD. GI: Soft, non-distended. No tenderness to palpation. No rebound or guarding. No masses. RECTAL: Deferred. MUSCULOSKELETAL: Atraumatic. Chest examination reveals no tenderness. The back is symmetrical on inspection without obvious abnormality. There is no CVA tenderness to palpation. No joint edema. LOWER EXTREMITIES: Calves are equal size bilaterally and non-tender. No edema. No discoloration. NEURO: Normal sensorium. No sensory or motor deficits noted. SKIN: No rash or jaundice noted. CRITICAL CARE: I have personally spent greater than 35 minutes of critical care time in the direct management of this patient. This includes bedside care, interpretation of diagnostic studies, and testing, discussion with consultants, patient, and other required patient management activities. These minutes are in excess of all separately billable procedures. Brayden Smalls MD Past Med/Surg History Medical History Anxiety Asthma HAS NOT USED RESCUE INHALER FOR A LONG TIME Diabetes mellitus, type 2 Diverticulosis of colon Environmental and seasonal allergies Fatty liver Fibromyalgia GERD (gastroesophageal reflux disease) Hearing loss in left ear History of anesthesia reaction hx of tremor with general anesthesia, BP drops with general anesthesia History of duodenal ulcer History of kidney stones Hx of pancreatitis Hyperlipidemia Hypertension IBS (irritable bowel syndrome) ? Nausea and vomiting after administration of anesthetic agent Osteoarthritis Postnasal drip PVC's (premature ventricular contractions) FOLLOW WITH DR. MOMIN Surgical History Family history of reaction to anesthesia MOTHER>TACYCARDIA AND HARD TO WAKE UP. H/O colonoscopy (09/2019) History of arthroscopy of left knee x2 History of arthroscopy of right shoulder History of colonoscopy with polypectomy (07/2015) History of cystoscopy History of esophagogastroduodenoscopy (EGD) (02/2018) History of excision of pilonidal cyst History of laminectomy L4-L5 History of right breast biopsy benign History of sinus surgery x4 History of tooth extraction History of total hysterectomy with bilateral salpingo-oophorectomy (BSO) History of wisdom tooth extraction Status post trigger finger release left middle finger Family History Unknown Crohn's disease Aunt Family history of diabetes mellitus Grandmother (Maternal) Family history of diabetes mellitus Mother Family hx of colon cancer Cancer Hypertension Sister Family hx of colon cancer Cancer Father Cancer Other Allergies No pertinent family history Denies family history of Colorectal cancer Ulcerative colitis Social History Smoking Status: Former smoker Second Hand Exposure: Yes (father smoked); Hx Alcohol Use: Yes Alcohol type: wine Hx Substance Use: No Preferred Language: Khmer Communication Ability: Effective Production Designer Required: No Beliefs That Will Affect Care: None marital status: Current Living Situation: Spouse current occupational status: retired How many Children do You have: 2 Feels Safe at Home: Yes Safety Concerns: Feels Safe At This Time Assistive Devices: Glasses Allergies Allergies Allergy/AdvReac Type Severity Reaction Status Date / Time amlodipine [From Norvasc] Allergy Intermediate severe Verified 05/06/21 10:08 fatigue Bactrim Allergy Intermediate HIVES Verified 02/21/18 15:26 cefdinir Allergy Intermediate Hives Verified 05/06/21 10:08 ezetimibe [From Zetia] Allergy Intermediate myalgia Verified 05/06/21 10:08 glyburide Allergy Intermediate ITCHING Verified 05/06/21 10:08 moxifloxacin Allergy Intermediate Hives Verified 05/06/21 10:08 Penicillins Allergy Intermediate HIVES Verified 05/06/21 10:08 Sulfa (Sulfonamide Allergy Intermediate HIVES Verified 05/06/21 10:08 Antibiotics) sulfamethoxazole Allergy Intermediate HIVES Verified 05/06/21 10:08 trimethoprim Allergy Intermediate HIVES Verified 05/06/21 10:08 bacitracin Allergy Mild skin Verified 05/06/21 10:08 [From Neosporin irritation ([id number])] dog dander Allergy Mild CONGESTION Verified 05/06/21 10:08 mold Allergy Mild CONGESTION Verified 05/06/21 10:08 neomycin Allergy Mild skin Verified 05/06/21 10:08 [From Neosporin irritation ([id number])] pollen extracts Allergy Mild CONGESTION Verified 05/06/21 10:08 polymyxin B Allergy Mild skin Verified 05/06/21 10:08 [From Neosporin irritation ([id number])] Cipro AdvReac Mild HEADACHES Verified 02/21/18 08:53 ciprofloxacin AdvReac Mild HEADACHES Verified 05/06/21 10:08 Quinolones AdvReac Mild HEADACHES Verified 05/06/21 10:08 beta block Allergy Intermediate fatigue Uncoded 05/06/21 10:08 glyburide Allergy Mild itching Uncoded 05/06/21 10:08 Home Meds Home Medications Medication Instructions Recorded Confirmed albuterol sulfate 90 mcg/actuation 2 puff INHALATION QID PRN 05/25/18 05/06/21 aerosol inhaler (Ventolin HFA) coenzyme Q10 100 mg capsule 100 mg PO QAM 05/25/18 05/06/21 (CoQ-10) fluticasone propionate 44 2 inh INHALATION BID 05/25/18 05/06/21 mcg/actuation HFA aerosol inhaler (Flovent HFA) fluticasone propionate 50 2 spray INTRANASAL BID PRN 05/25/18 05/06/21 mcg/actuation nasal spray,suspension (Flonase Allergy Relief) hydralazine 25 mg tablet 25 mg PO BID 05/25/18 05/06/21 insulin glargine 100 unit/mL (3 20 - 22 unit SUBCUT HS 05/25/18 05/06/21 mL) subcutaneous pen (Lantus Solostar U-100 Insulin) quinapril 40 mg tablet 40 mg PO QAM 05/25/18 05/06/21 ketotifen fumarate 0.025 % (0.035 1 drp OPHTHALMIC (EYE) Q8H PRN 06/04/20 05/06/21 %) eye drops (Allergy Eye (ketotifen)) pravastatin 20 mg tablet 20 mg PO MOWEFRSA@09 tab 09/24/20 05/06/21 triamcinolone acetonide 0.1 % 1 applic TOPICAL BID PRN 09/24/20 05/06/21 topical ointment polyethylene glycol 3350 17 17 g PO QAM 10/16/20 05/06/21 gram/dose oral powder (Miralax) dicyclomine 10 mg capsule 10 mg PO BID 05/01/21 05/06/21 insulin lispro 100 unit/mL 13 - 15 unit SUBCUT TIDM 05/01/21 05/06/21 subcutaneous solution (Humalog U-100 Insulin) ciprofloxacin 0.2 %-hydrocortisone 4 drp OTIC (EAR) BID PRN 05/06/21 05/06/21 1 % ear drops,suspension (Cipro HC) ondansetron 4 mg disintegrating 4 mg PO Q8H PRN 05/06/21 05/06/21 tablet Previous Rx's Medication Instructions Recorded pantoprazole 40 mg tablet,delayed 40 mg PO HS #90 tab 03/18/20 release hydrocortisone-acetic acid 1 %-2 % 5 drp OTIC (EAR) TID PRN #10 ml 06/04/20 ear drops ciprofloxacin 0.2 %-hydrocortisone 3 drp OTIC (EAR) BID #10 ml 09/02/20 1 % ear drops,suspension (Cipro HC) Results & Data (ED) Vital Signs Vital Signs - 24 hr 05/06/21 09:00 05/06/21 09:06 05/06/21 09:10 Temperature 36.8 C Temperature Source Oral Pulse Rate 61 61 83 Pulse Rate [Apical] Pulse Rate from SpO2 Sensor Pulse Rhythm Regular Regular Respiratory Rate 20 20 17 Respiratory Effort / Characteristics Non-Labored Respiratory Depth Normal Respiratory Pattern Regular Blood Pressure 187/86 H Blood Pressure [Left Arm] Blood Pressure Mean 119 Blood Pressure Mean [Left Arm] Pulse Oximetry 83 L 99 Oxygen Delivery Method Nasal Cannula Nasal Cannula Oxygen Flow Rate 0 6 Sepsis Recent Fever Within 48 Hours No Sepsis New/Unexplained Change in Mental Status No Sepsis Action Taken by Nursing No Action Required Oxygen Flow Rate - Titration 6 Pulse Oximetry Post Tiitration 94 05/06/21 09:30 05/06/21 10:57 05/06/21 11:58 Temperature Temperature Source Pulse Rate 62 Pulse Rate [Apical] 65 Pulse Rate from SpO2 Sensor 61 Pulse Rhythm Respiratory Rate 18 20 18 Respiratory Effort / Characteristics Non-Labored Spontaneous Respiratory Depth Respiratory Pattern Blood Pressure 196/79 H Blood Pressure [Left Arm] 139/65 Blood Pressure Mean 118 Blood Pressure Mean [Left Arm] 89 Pulse Oximetry 98 94 100 Oxygen Delivery Method Nasal Cannula Nasal Cannula Oxygen Flow Rate 5 5 Sepsis Recent Fever Within 48 Hours Sepsis New/Unexplained Change in Mental Status Sepsis Action Taken by Nursing Oxygen Flow Rate - Titration Pulse Oximetry Post Tiitration Laboratory Data Result diagrams: 05/06/21 09:25 05/06/21 09:25 Lab Results 05/06/21 05/06/21 05/06/21 Range/Units 09:25 09:25 09:25 WBC 11.50 H (4.8-10.8) K/uL RBC 4.53 (4.2-5.4) M/uL Hgb 13.3 (12.0-16.0) g/dL Hct 38.6 (37-47) % MCV 85.2 (80-100) fL MCH 29.4 (25-34) pg MCHC 34.5 (32-36) g/dL RDW Std Deviation 42.5 (36.4-46.3) fL RDW Coeff of Martin 13.6 (11.5-14.5) % Plt Count 443 H (130-400) K/uL MPV 9.5 (7.4-10.4) fL Immature Gran % (Auto) 1.7 % Neut % (Auto) 78.8 % Lymph % (Auto) 13.3 % Labette % (Auto) 6.1 % Eos % (Auto) 0.0 % Baso % (Auto) 0.1 % Neut # (Auto) 9.07 H (1.4-6.5) K/uL Lymph # (Auto) 1.53 (1.2-3.4) K/uL [place]ette # (Auto) 0.70 H (0.11-0.59) K/uL Eos # (Auto) 0.00 (0-0.5) K/uL Baso # (Auto) 0.01 (0-0.2) K/uL Immature Gran # (Auto) 0.19 H (0.00-0.02) K/uL D-Dimer 1110 H* (0-500) ug/L FEU Sodium 135 L (136-145) mmol/L Potassium 3.9 (3.5-5.1) mmol/L Chloride 106 (98-107) mmol/L Carbon Dioxide 21 (21-32) mmol/L Anion Gap 8.0 (3-11) BUN 19 H (7-18) mg/dl Creatinine 0.92 (0.6-1.2) mg/dl Est Cr Clr Drug Dosing 64.9 ml/min Est GFR ( Amer) 73.1 ml/min Est GFR (Non-Af Amer) 63.1 ml/min BUN/Creatinine Ratio 20.3 H (10-20) Glucose 262 H (70-99) mg/dl Calcium 8.2 L (8.5-10.1) mg/dl Magnesium 2.5 H (1.8-2.4) mg/dl Total Bilirubin 0.6 (0.2-1) mg/dl AST 18 (15-37) U/L ALT 35 (12-78) U/L Alkaline Phosphatase 151 H (45-117) U/L Troponin I < 0.015 (0-0.045) ng/ml C-Reactive Protein 5.75 H (0-0.29) mg/dl Total Protein 6.9 (6.4-8.2) gm/dl Albumin 2.6 L (3.4-5.0) gm/dl Globulin 4.3 H (2.5-4.0) gm/dl Albumin/Globulin Ratio 0.6 L (0.9-2) Procalcitonin (0-0.5) ng/ml COVID-19 Eval Order SARS-CoV-2 (PCR) (Negative) 05/06/21 05/06/21 05/06/21 Range/Units 09:42 09:42 11:16 WBC (4.8-10.8) K/uL RBC (4.2-5.4) M/uL Hgb (12.0-16.0) g/dL Hct (37-47) % MCV (80-100) fL MCH (25-34) pg MCHC (32-36) g/dL RDW Std Deviation (36.4-46.3) fL RDW Coeff of Martin (11.5-14.5) % Plt Count (130-400) K/uL MPV (7.4-10.4) fL Immature Gran % (Auto) % Neut % (Auto) % Lymph % (Auto) % Labette % (Auto) % Eos % (Auto) % Baso % (Auto) % Neut # (Auto) (1.4-6.5) K/uL Lymph # (Auto) (1.2-3.4) K/uL Labette # (Auto) (0.11-0.59) K/uL Eos # (Auto) (0-0.5) K/uL Baso # (Auto) (0-0.2) K/uL Immature Gran # (Auto) (0.00-0.02) K/uL D-Dimer (0-500) ug/L FEU Sodium (136-145) mmol/L Potassium (3.5-5.1) mmol/L Chloride (98-107) mmol/L Carbon Dioxide (21-32) mmol/L Anion Gap (3-11) BUN (7-18) mg/dl Creatinine (0.6-1.2) mg/dl Est Cr Clr Drug Dosing ml/min Est GFR ( Amer) ml/min Est GFR (Non-Af Amer) ml/min BUN/Creatinine Ratio (10-20) Glucose (70-99) mg/dl Calcium (8.5-10.1) mg/dl Magnesium (1.8-2.4) mg/dl Total Bilirubin (0.2-1) mg/dl AST (15-37) U/L ALT (12-78) U/L Alkaline Phosphatase (45-117) U/L Troponin I (0-0.045) ng/ml C-Reactive Protein (0-0.29) mg/dl Total Protein (6.4-8.2) gm/dl Albumin (3.4-5.0) gm/dl Globulin (2.5-4.0) gm/dl Albumin/Globulin Ratio (0.9-2) Procalcitonin < 0.05 (0-0.5) ng/ml COVID-19 Eval Order Covid19 at [facility] SARS-CoV-2 (PCR) POSITIVE A* (Negative) Administered Medications Enalapril Maleate (Enalapril Maleate 10 Mg Tab) 40 mg PO QAM ROBERTO; Protocol Stop: 06/05/21 15:59 Last Admin: 05/06/21 15:28 Dose: 40 mg Documented by: [id number] Enoxaparin Sodium (Enoxaparin Inj 40 Mg/0.4 Ml Syr) 40 mg SQ Q12 ROBERTO Stop: 06/05/21 14:59 Last Admin: 05/06/21 15:29 Dose: 40 mg Documented by: [id number] Fluticasone Furoate (Fluticasone Furoate 100mcg 14 Puffs/Inhaler) 1 puffs INH DAILY ROBERTO; Protocol Stop: 06/05/21 15:59 Last Admin: 05/06/21 15:32 Dose: 1 puffs Documented by: [id number] Potassium Chloride/Sodium Chloride (Normal Saline W/20 Meq Kcl) 20 meq in 1,000 mls @ 100 mls/hr IV .Q10H ROBERTO Stop: 06/05/21 14:29 Last Admin: 05/06/21 14:49 Dose: 100 mls/hr Documented by: [id number] Insulin Aspart (Insulin Aspart 100 Units/Ml 3 Ml Pen) 0 units SC ACHS ROBERTO Stop: 06/05/21 16:29 Last Admin: 05/06/21 17:44 Dose: 12 units Documented by: [id number] Cosigned by: [id number] Pravastatin Sodium (Pravastatin Sod 20 Mg Tab) 20 mg PO MoWeFrSa@0900 ROBERTO Stop: 06/05/21 15:59 Last Admin: 05/06/21 15:28 Dose: 20 mg Documented by: [id number] Discontinued Medications Acetaminophen (Acetaminophen 500 Mg Tab) 1,000 mg PO NOW STA Stop: 05/06/21 09:33 Last Admin: 05/06/21 11:08 Dose: 1,000 mg Documented by: [id number] Albuterol (Albut/Ipratrop 3mg/0.5mg Neb 3 Ml Vial) 3 ml NEB NOW STA Stop: 05/06/21 09:33 Last Admin: 05/06/21 10:56 Dose: 3 ml Documented by: [id number] Dexamethasone Sodium Phosphate (DexamethasonePf 10 Mg/Ml Vial) 6 mg IV NOW ONE Stop: 05/06/21 09:33 Last Admin: 05/06/21 11:09 Dose: 6 mg Documented by: [id number] Hydrocodone Bit/Homatropine Methylb (Hydrocodone/Homatropine Syrup 5mg/1.5mg 5ml Udp) 5 ml PO NOW STA Stop: 05/06/21 09:33 Last Admin: 05/06/21 11:09 Dose: 5 ml Documented by: [id number] Sodium Chloride (Nss 1000ml) 1,000 mls @ 125 mls/hr IV .Q8H STA Stop: 05/06/21 17:31 Last Infusion: 05/06/21 13:54 Dose: 0 mls/hr Documented by: [id number] Admin: 05/06/21 11:09 Dose: 125 mls/hr Documented by: [id number] Insulin Aspart (Insulin Aspart 100 Units/Ml 3 Ml Pen) 0 units SC ONE ONE Stop: 05/06/21 14:46 Last Admin: 05/06/21 15:30 Dose: 10 units Documented by: [id number] Cosigned by: [id number] Insulin Human NPH (Insulin Human Nph) 35 units SC ONE ONE Stop: 05/06/21 14:46 Last Admin: 05/06/21 15:30 Dose: 35 units Documented by: [id number] Cosigned by: [id number] Ioversol (Optiray 320 125ml) 120 ml IV ONCE ONE Stop: 05/06/21 10:38 Last Admin: 05/06/21 10:37 Dose: 120 ml Documented by: [id number] Imaging Data Radiologist's Impression: Chest X-Ray 05/06/21 09:06 XR chest 1V portable CLINICAL HISTORY: Dyspnea, +covid TECHNIQUE: Single frontal radiograph of the chest was obtained. Comparison: Comparison is made to chest one view 05/01/2021 FINDINGS: No lines and tubes are seen. Cardiomegaly is noted. Bilateral airspace opacities are more pronounced than on the prior radiograph. No evidence of pleural effusion or pneumothorax. IMPRESSION: Interval progression of bilateral airspace opacities compatible with history of viral pneumonia. ACT 112: Negative or not required by law. Electronically signed by: Doni Ceja M.D. 05/06/2021 9:51 AM Chest CTA 05/06/21 09:31 CT ANGIOGRAPHY OF THE CHEST, PULMONARY EMBOLUS PROTOCOL CLINICAL HISTORY: hypoxia, chest pain Left, covid + COMPARISON STUDY: Chest CT January 04, 2019. Chest radiograph performed earlier today. TECHNIQUE: Following IV administration of 120 mL of Optiray, helical axial images of the chest were obtained utilizing the pulmonary embolus protocol. Maximal intensity projections and sagittal and coronal reformats were viewed on an independent 3D workstation. IV contrast was administered without com plication. Automated exposure control was utilized for the study. A dose lowering technique was utilized adhering to the principles of ALARA. CT DOSE: 525.75 mGycm FINDINGS: No pulmonary emboli are identified. There is no thoracic aortic dissection. No pericardial effusion is present. Moderate cardiomegaly is noted. There is no pneumothorax or pleural effusion. Extensive bilateral airspace opacities are noted throughout the lungs with groundglass opacities and developing consolidation. There is no cavitation. Lungs are suboptimally assessed due to respiratory motion. Visualized portions of the upper abdomen are unremarkable. IMPRESSION: 1. No pulmonary emboli identified. 2. Extensive airspace opacities throughout the lungs consistent with viral pneumonia. 3. Cardiomegaly. ACT 112: Negative or not required by law. Electronically signed by: Evaristo Villanueva M.D. 05/06/2021 11:16 AM Discharge Plan Visit Data Chief Complaint: Shortness of Breath/Dyspnea Stated Complaint: HYPOXIA, COVID + ED Provider: Brayden Smalls Discharge Problem: COVID-19, Hypoxia, Left-sided chest pain Patient Disposition: Admitted As Inpatient Discharge Instructions Interventions: ED Discharge Assessment Last Done: 05/06/21 12:48
--- NOTE | 2021-05-06 09:52 | XRay Report ---
XR chest 1V portable CLINICAL HISTORY: Dyspnea, +covid TECHNIQUE: Single frontal radiograph of the chest was obtained. Comparison: Comparison is made to chest one view 05/01/2021 FINDINGS: No lines and tubes are seen. Cardiomegaly is noted. Bilateral airspace opacities are more pronounced than on the prior radiograph. No evidence of pleural effusion or pneumothorax. IMPRESSION: Interval progression of bilateral airspace opacities compatible with history of viral pneumonia. ACT 112: Negative or not required by law. Electronically signed by: Doni Ceja M.D. 05/06/2021 9:51 AM
[2021-05-06 09:53] LABS: D Dimer 1110 ug/L FEU (0-500)
[2021-05-06 09:56] LABS: Alanine Aminotransferase 35 U/L (12-78); Albumin Level 2.6 gm/dl (3.4-5.0); Aspartate Aminotransferase 18 U/L (15-37); BUN Creatinine Ratio 20.3 (10-20); Blood Urea Nitrogen 19 mg/dl (7-18); C Reactive Protein 5.75 mg/dl (0-0.29); Calcium 8.2 mg/dl (8.5-10.1); Carbon Dioxide 21 mmol/L (21-32); Chloride 106 mmol/L (98-107); Creatinine Clr Calc Pharmacy 64.9 ml/min; Est GFR (African American) 73.1 ml/min; Est GFR (Non-African American) 63.1 ml/min; Glucose 262 mg/dl (70-99); Magnesium 2.5 mg/dl (1.8-2.4); Potassium 3.9 mmol/L (3.5-5.1); Sodium 135 mmol/L (136-145)
[2021-05-06 10:04] LABS: Albumin Globulin Ratio 0.6 (0.9-2); Alkaline Phosphatase 151 U/L (45-117); Bilirubin,Total 0.6 mg/dl (0.2-1); Globulin 4.3 gm/dl (2.5-4.0); Total Protein 6.9 gm/dl (6.4-8.2); Troponin I < 0.015 ng/ml (0-0.045)
[2021-05-06] MEDS ORDERED: OPTIRAY 320 125ml IV ONE (10:37)
--- NOTE | 2021-05-06 11:13 | History & Physical Report ---
Date of Service May 06, 2021 Assessment & Plan (1) Acute respiratory failure with hypoxia: Plan: Brooke is a 71-year-old female with past medical history of IBS, asthma, hypertension, diabetes mellitus type 2, fibromyalgia, fatty liver, and COVID-19 who presents with worsening shortness of breath which began 2 weeks ago but which is acutely worsened in the last 2 days. She had a positive outpatient COVID-19 test on April 26 (test obtained April 24). Was seen in the ER 05/01 and discharged home on steroids with some temporary improvement in symptoms. AHRF w/ Shortness of breath 2/2 COVID-19 pneumonia. Breakthrough case, had vaccination x2 with moderate - CXR: Interval progression of bilateral airspace opacities compatible with history of viral pneumonia. CTA chest: No pulmonary emboli identified. Extensive airspace opacities throughout the lungs consistent with viral pneumonia. Cardiomegaly. Leukocytosis to 11.50 (prior normal 05/01/2021) Thrombocytosis 443, likely reactive D-dimer 1110 No transaminitis Chronic mild elevation of alk phos CRP 5.75 COVID-19 positive On symptom day approximate 14. Outside of the window for remdesivir. Not requiring high flow nasal cannula, does not meet criteria for tocilizumab, baricitinib at this time. Continue to monitor oxygen requirements and if progressing, +toci - COVID DVT PPx with lovenox Continue dexamethasone 6 mg IV daily SPO2 goal greater than 90%, currently on 5 L nasal cannula Pro-Dustin pending, leukocytosis without increase in percent immature granulocytes more likely 2/2 steroid effect. No signs of lobar consolidation, defer antibiotics at this time. Pro-Dustin pending, if positive consider addition of doxycycline twice daily. (2) Diabetes mellitus, type 2: Plan: Type 2 diabetes mellitus Home Lantus 20-22 units nightly, lispro 13-15 units subcu 3 times daily M. Estimated total daily dose approximately 65-70 units Lantus 12 units twice daily, correction factor 35, carb ratio 11. Goal BSG 100 140 Glucose checks AC/at bedtime Pharmacy consulted for type II DM with steroid treatment and critical illness (3) Hypertension: Plan: Hypertension Creatinine less than 1 at baseline, currently at baseline Continue quinapril 40 mg p.o. every morning (4) Irritable bowel syndrome (IBS): Plan: IBS Continue dicyclomine Hyperlipidemia Continue pravastatin 20 mg 4 times weekly Laryngeal pharyngeal reflux Protonix 40 mg daily Famotidine 20 mg twice daily as needed for reflux (5) Asthma: Plan: Asthma Continue Flovent twice daily DuoNebs every 4 hours as needed Continue interventions and oxygen as above (6) 2019 novel coronavirus-infected pneumonia (NCIP): Plan: - As above (7) Irregular heart beat: Plan: Reports a history of PVCs which normally have been asymptomatic, but which have worsened and become painful with prior respiratory illnesses Denies any history of ischemic heart disease, heart attack Med/surge with telemetry, no acute interventions at this time - Sinus rhythm strip without PVCs on monitor (8) Fibromyalgia: Plan: - Tylenol 650mg Q6H PRN Plan: DVT prophylaxis: Covid dosed Lovenox Diet: DM, HH Disposition: Medical telemetry, Covid CODE STATUS: Full code, discussed with patient. She reports she has a living well and has previously not wanted heroic measures/CPR but with her current illness and her baseline prior to presenting she confirms that she would want CPR and intubation if required/indicated at this time. History of Present Illness Chief Complaint: Shortness of Breath, COVID19+ Primary Care Provider: Katalina Paul Dick is a 71-year-old female with past medical history of IBS, asthma, hypertension, diabetes mellitus type 2, fibromyalgia, fatty liver, and COVID-19 who presents with worsening shortness of breath which began 2 weeks ago but which is acutely worsened in the last 2 days. She had a positive outpatient COVID-19 test on April 26 (test obtained April 24). Was seen in the ER 05/01 and discharged home on steroids with some temporary improvement in symptoms. Daughter COVID positive. Mayelin and her had a cough and got tested as well, both tested positive along with 9 year old grandson. Everyone vaccinated except grandson. Mayelin had Moderna x2 with the second dose in August. Thought sx were alelrgies at first, first congestion/dry cough began ~ 2 weeks ago. Tested Apr 24 and was positive for COVID. Fever 102*F first time 7 days ago and profuse night sweats and shakes/rigors during the day. Came in he ER 05/01 and was placed on steroids. [place] a little better and fevers resovled by the weekend. Was using albuterol QID, but continued to feel more short of breath through the weekend and 'awful coug, bringing up red/white mucous.' Fevers and chills have not returned since being on steroids. No home oxygen requirements Asthma previously well controlled with Flovent seasonally + albuterol PRN +N/-V, little appetite, loose stool +10lb weight loss in the week from poor appetite Lost ability to smell and taste du eto sinus surgery in the past, unclear if any acute on chronic change +Sob, -chest pain, -ches tpressure, - palpitations -N/-T -Numbness, -Tingling, -Vision Change Had 1 dose of dex in ER prior visit, was d/c home on prednisone Medical History: Reviewed Medications: Reviewed. Taken no medications today Surgical History: Reviewed. Allergies: Reviewed. Multiple allegies to hives, +diarrhea and nausea to azithro. Tolerates doxy well. Social History: No tobacco products, no alcohol, no recreational drug use, no medical marijuana use. Code Status: Full Code Allergies Allergy/AdvReac Type Severity Reaction Status Date / Time amlodipine [From Norvasc] Allergy Intermediate severe Verified 05/06/21 10:08 fatigue Bactrim Allergy Intermediate HIVES Verified 02/21/18 15:26 cefdinir Allergy Intermediate Hives Verified 05/06/21 10:08 ezetimibe [From Zetia] Allergy Intermediate myalgia Verified 05/06/21 10:08 glyburide Allergy Intermediate ITCHING Verified 05/06/21 10:08 moxifloxacin Allergy Intermediate Hives Verified 05/06/21 10:08 Penicillins Allergy Intermediate HIVES Verified 05/06/21 10:08 Sulfa (Sulfonamide Allergy Intermediate HIVES Verified 05/06/21 10:08 Antibiotics) sulfamethoxazole Allergy Intermediate HIVES Verified 05/06/21 10:08 trimethoprim Allergy Intermediate HIVES Verified 05/06/21 10:08 bacitracin Allergy Mild skin Verified 05/06/21 10:08 [From Neosporin irritation ([id number])] dog dander Allergy Mild CONGESTION Verified 05/06/21 10:08 mold Allergy Mild CONGESTION Verified 05/06/21 10:08 neomycin Allergy Mild skin Verified 05/06/21 10:08 [From Neosporin irritation ([id number])] pollen extracts Allergy Mild CONGESTION Verified 05/06/21 10:08 polymyxin B Allergy Mild skin Verified 05/06/21 10:08 [From Neosporin irritation ([id number])] Cipro AdvReac Mild HEADACHES Verified 02/21/18 08:53 ciprofloxacin AdvReac Mild HEADACHES Verified 05/06/21 10:08 Quinolones AdvReac Mild HEADACHES Verified 05/06/21 10:08 beta block Allergy Intermediate fatigue Uncoded 05/06/21 10:08 glyburide Allergy Mild itching Uncoded 05/06/21 10:08 Home Medications Medication Instructions Recorded Confirmed Type albuterol sulfate 90 mcg/actuation 2 puff INHALATION QID PRN 05/25/18 05/06/21 History aerosol inhaler (Ventolin HFA) coenzyme Q10 100 mg capsule 100 mg PO QAM 05/25/18 05/06/21 History (CoQ-10) fluticasone propionate 44 2 inh INHALATION BID 05/25/18 05/06/21 History mcg/actuation HFA aerosol inhaler (Flovent HFA) fluticasone propionate 50 2 spray INTRANASAL BID PRN 05/25/18 05/06/21 History mcg/actuation nasal spray,suspension (Flonase Allergy Relief) hydralazine 25 mg tablet 25 mg PO BID 05/25/18 05/06/21 History insulin glargine 100 unit/mL (3 20 - 22 unit SUBCUT HS 05/25/18 05/06/21 History mL) subcutaneous pen (Lantus Solostar U-100 Insulin) quinapril 40 mg tablet 40 mg PO QAM 05/25/18 05/06/21 History pantoprazole 40 mg tablet,delayed 40 mg PO HS #90 tab 03/18/20 05/06/21 Rx release hydrocortisone-acetic acid 1 %-2 % 5 drp OTIC (EAR) TID PRN #10 ml 06/04/20 05/06/21 Rx ear drops ketotifen fumarate 0.025 % (0.035 1 drp OPHTHALMIC (EYE) Q8H PRN 06/04/20 05/06/21 History %) eye drops (Allergy Eye (ketotifen)) ciprofloxacin 0.2 %-hydrocortisone 3 drp OTIC (EAR) BID #10 ml 09/02/20 05/06/21 Rx 1 % ear drops,suspension (Cipro HC) pravastatin 20 mg tablet 20 mg PO 4XWK tab 09/24/20 05/06/21 History triamcinolone acetonide 0.1 % 1 applic TOPICAL BID PRN 09/24/20 05/06/21 History topical ointment polyethylene glycol 3350 17 17 g PO QAM 10/16/20 05/06/21 History gram/dose oral powder (Miralax) dicyclomine 10 mg capsule 10 mg PO BID 05/01/21 05/06/21 History insulin lispro 100 unit/mL 13 - 15 unit SUBCUT TIDM 05/01/21 05/06/21 History subcutaneous solution (Humalog U-100 Insulin) ciprofloxacin 0.2 %-hydrocortisone 4 drp OTIC (EAR) BID PRN 05/06/21 05/06/21 History 1 % ear drops,suspension (Cipro HC) ondansetron 4 mg disintegrating 4 mg PO Q8H PRN 05/06/21 05/06/21 History tablet Past Med/Surg History Medical History Anxiety Asthma HAS NOT USED RESCUE INHALER FOR A LONG TIME Diabetes mellitus, type 2 Diverticulosis of colon Environmental and seasonal allergies Fatty liver Fibromyalgia GERD (gastroesophageal reflux disease) Hearing loss in left ear History of anesthesia reaction hx of tremor with general anesthesia, BP drops with general anesthesia History of duodenal ulcer History of kidney stones Hx of pancreatitis Hyperlipidemia Hypertension IBS (irritable bowel syndrome) ? Nausea and vomiting after administration of anesthetic agent Osteoarthritis Postnasal drip PVC's (premature ventricular contractions) FOLLOW WITH DR. MOMIN Surgical History Family history of reaction to anesthesia MOTHER>TACYCARDIA AND HARD TO WAKE UP. H/O colonoscopy (09/2019) History of arthroscopy of left knee x2 History of arthroscopy of right shoulder History of colonoscopy with polypectomy (07/2015) History of cystoscopy History of esophagogastroduodenoscopy (EGD) (02/2018) History of excision of pilonidal cyst History of laminectomy L4-L5 History of right breast biopsy benign History of sinus surgery x4 History of tooth extraction History of total hysterectomy with bilateral salpingo-oophorectomy (BSO) History of wisdom tooth extraction Status post trigger finger release left middle finger Family History Unknown Crohn's disease Aunt Family history of diabetes mellitus Grandmother (Maternal) Family history of diabetes mellitus Mother Family hx of colon cancer Cancer Hypertension Sister Family hx of colon cancer Cancer Father Cancer Other Allergies No pertinent family history Denies family history of Colorectal cancer Ulcerative colitis Social History Smoking Status: Never smoker Second Hand Exposure: Yes (father smoked); Hx Alcohol Use: Yes Alcohol type: wine Hx Substance Use: No Preferred Language: Upper Sorbian Communication Ability: Effective [place] Flaker Required: No Beliefs That Will Affect Care: None marital status: Current Living Situation: Spouse current occupational status: retired How many Children do You have: 2 Feels Safe at Home: Yes Assistive Devices: Glasses Review of Systems Review of Systems: All systems reviewed & are unremarkable except as noted in HPI & below Physical Exam Physical Exam: General: A&Ox3. NAD. Cooperative. HEENT: Atraumatic, normocephalic. Pupils equal and responsive to light and accommodation. Visual acuity and hearing grossly intact. Pulm: LLL crackles, coarse. NO rales. Scattered end expiratory wheezing. Symmetrical chest rise. No increase work of breathing. No respiratory distress. Cardiac: RRR, -mrg. Radial pulses intact and symmetrical. Abdominal: Nontender, nondistended, soft. BS present. Extremities: Warm, dry. Moving all extremities equally. Machine Clerical Verifier strength, ankle dorsiflexion/plantar flexion 5/5 bilaterally. PT and radial pulses intact. Sensation to soft touch and temperature intact bilaterally. Results & Data Results & Data ([facility]) Vital Signs (Past 12 Hours) Vital Signs Temp Pulse Resp BP Pulse Ox 05/06/21 10:57 20 94 05/06/21 09:30 62 18 196/79 H 98 05/06/21 09:10 83 17 05/06/21 09:06 61 20 99 05/06/21 09:00 36.8 C 61 20 187/86 H 83 L PG Care Time/CCT Total # of Minutes Spent Total Time Spent with Patient: Total time spent is greater than 50% in coordination of care (as documented) at patient's floor/unit and/or counseling patient: Coding Level of Care Code 25650 Initial Inpt Care Lvl 3 Diagnoses Acute respiratory failure with hypoxia J96.01 Diabetes mellitus, type 2 E11.9 Hypertension I10 Fibromyalgia M79.7 Irritable bowel syndrome (IBS) K58.9 Irregular heart beat I49.9 Asthma J45.909 2019 novel coronavirus-infected pneumonia (NCIP) U07.1; J12.82
--- NOTE | 2021-05-06 11:18 | CT Scan Report ---
CT ANGIOGRAPHY OF THE CHEST, PULMONARY EMBOLUS PROTOCOL CLINICAL HISTORY: hypoxia, chest pain Left, covid + COMPARISON STUDY: Chest CT January 04, 2019. Chest radiograph performed earlier today. TECHNIQUE: Following IV administration of 120 mL of Optiray, helical axial images of the chest were o btained utilizing the pulmonary embolus protocol. Maximal intensity projections and sagittal and cor onal reformats were viewed on an independent 3D workstation. IV contrast was administered without co mplication. Automated exposure control was utilized for the study. A dose lowering technique was ut ilized adhering to the principles of ALARA. CT DOSE: 525.75 mGycm FINDINGS: No pulmonary emboli are identified. There is no thoracic aortic dissection. No pericardial effusion is present. Moderate cardiomegaly is noted. There is no pneumothorax or pleural effusion. E xtensive bilateral airspace opacities are noted throughout the lungs with groundglass opacities and d eveloping consolidation. There is no cavitation. Lungs are suboptimally assessed due to respiratory m otion. Visualized portions of the upper abdomen are unremarkable. IMPRESSION: 1. No pulmonary emboli identified. 2. Extensive airspace opacities throughout the lungs consistent with viral pneumonia. 3. Cardiomegaly. ACT 112: Negative or not required by law. Electronically signed by: Evaristo Villanueva M.D. 05/06/2021 11:16 AM
[2021-05-06 12:29] LABS: Appearance Urine Clear (Clear); Bilirubin Urine Negative (Negative); Blood Urine Negative (Negative); Color Urine Yellow; Glucose Urine UA Negative (Negative); Ketones Urine Negative (Negative); Leukocyte Esterase Urine Negative (Negative); Nitrite Urine Negative (Negative); Protein Urine Negative (Negative); Specific Gravity Urine 1.031 (1.000-1.030); Urobilinogen Urine Negative (Negative)
[2021-05-06] MEDS ORDERED: DEXTROSE 50% 50 ML SYRINGE IV PRN (13:54)
[2021-05-06] MEDS ORDERED: GLUCAGON FOR INJ 1 MG VIAL SQ PRN (13:54)
[2021-05-06] MEDS ORDERED: GLUCOSE 40% GEL 15 GM TUBE PO PRN (13:54)
[2021-05-06] MEDS ORDERED: GLUCOSE 10 TABS/TUBE PO PRN (13:54)
[2021-05-06] MEDS ORDERED: ALBUT/IPRATROP 3MG/0.5MG NEB 3 ML VIAL NEB PRN (13:54)
[2021-05-06] MEDS ORDERED: PHARMACY GLYCEMIC MGMT CONSULT PRN (13:54)
[2021-05-06] MEDS ORDERED: INSULIN ASPART 100 UNITS/ML 3 ML PEN SC ONE (14:45)
[2021-05-06] MEDS ORDERED: INSULIN HUMAN NPH SC ONE (14:45)
[2021-05-06] MEDS: NSS + 20MEQ KCL 20 MEQ/1,000 ML BAG IV SCH (14:49)
--- NOTE | 2021-05-06 14:55 | Pharmacy Report ---
Pharmacy Glycemic Short Note 2 - Date of Service May 06, 2021 - Glycemic Short BSG Results (Last 24 hours): 05/06/21 05/06/21 09:25 14:24 Glucose 262 H POC Glucose 277 H OUTPATIENT ANTIDIABETIC REGIMEN: * Lantus 20-22 units HS, Humalog 13-25 units tidm * ordered for tomorrow AM ASSESSMENT: * 71 year old admitted with COIVD pneumonia, type 2 diabetic * Started on steroids on admission, BSGs in upper 200s. Pharmacy consulted to assist with glycemic management * Plan to give NPH ~0.35 units/kg x 1 now to help coverage of steroids. Typically we target ~0.4 units/kg, however per notes patient with poorer PO intake * Plan to use stress of 3 for novolog and will add home Lantus on for HS with a scale PLAN FOR INPATIENT GLYCEMIC CONTROL: * Hold outpatient oral diabetes medications * Basal insulin * NPH 35 units x 1 now * Lantus 15-20 units HS based upon BSG value * Bolus insulin * NovoLog per scale ACHS or Q6hrs while NPO * Goal Range: Low 110 mg/dL - High 140 mg/dL * Correction Factor: 15 mg/dL/unit * Nutritional / Prandial insulin per carb ratio of 1 unit per 5 grams CHO consumed PLAN FOR DISCHARGE: * tbd
[2021-05-06] MEDS: ENALAPRIL MALEATE 10 MG TAB PO SCH (15:28)
[2021-05-06] MEDS: PRAVASTATIN SOD 20 MG TAB PO SCH (15:28)
[2021-05-06] MEDS: ENOXAPARIN INJ 40 MG/0.4 ML SYR SQ SCH (15:29)
[2021-05-06] MEDS: FLUTICASONE FUROATE 100MCG 14 PUFFS/INHALER INH SCH (15:32)
[2021-05-06] MEDS: INSULIN ASPART 100 UNITS/ML 3 ML PEN SC SCH ×2 (17:44→20:34)
[2021-05-06] MEDS: DICYCLOMINE HCL 10 MG CAP PO SCH (20:23)
[2021-05-06] MEDS: ACETAMINOPHEN 325 MG TAB PO PRN (20:23)
[2021-05-06] MEDS: PANTOprazole 40 MG TAB PO SCH (20:24)
[2021-05-06] MEDS: INSULIN GLARGINE SOLOSTAR 100 UNITS/ML 3 ML PEN SC SCH (21:45)
[2021-05-07] MEDS: CARBOHYDRATES FOR HYPOGLYCEMIA PO PRN ×2 (00:07→00:59)
[2021-05-07] MEDS: ENOXAPARIN INJ 40 MG/0.4 ML SYR SQ SCH ×3 (00:11→20:32)
[2021-05-07] MEDS: NSS + 20MEQ KCL 20 MEQ/1,000 ML BAG IV SCH (00:11)
[2021-05-07] MEDS: INSULIN ASPART 100 UNITS/ML 3 ML PEN SC SCH ×6 (00:18→21:21)
[2021-05-07] MEDS: ACETAMINOPHEN 325 MG TAB PO PRN (05:43)
--- NOTE | 2021-05-07 06:00 | Electrocardiogram Report ---
Test Reason : Blood Pressure : / mmHG Vent. Rate : 061 BPM Atrial Rate : 061 BPM P-R Int : 138 ms QRS Dur : 084 ms QT Int : 452 ms P-R-T Axes : 045 006 027 degrees QTc Int : 455 ms Sinus rhythm with Premature atrial complexes in a pattern of bigeminy Nonspecific ST abnormality Abnormal ECG When compared with ECG of 01-MAY-2021 14:09, No significant change Confirmed by Rich Lemons ([id number]) on 05/07/2021 6:00:27 AM Referred By: REFERRED SELF Confirmed By:Rich Lemons
[2021-05-07 07:34] LABS: Estimated Average Glucose 232 mg/dl; Hemoglobin A1C 9.7 % (4.5-5.6)
[2021-05-07] MEDS: dexAMETHasone 6 MG in SYRINGE 0 ML IV SCH (08:21)
[2021-05-07] MEDS: ENALAPRIL MALEATE 10 MG TAB PO SCH (08:21)
[2021-05-07] MEDS: DICYCLOMINE HCL 10 MG CAP PO SCH ×2 (08:21→20:32)
[2021-05-07] MEDS: FLUTICASONE FUROATE 100MCG 14 PUFFS/INHALER INH SCH (08:22)
[2021-05-07] MEDS ORDERED: INSULIN HUMAN NPH SC SCH ×2 (09:00)
--- NOTE | 2021-05-07 10:06 | Hospitalist Progress Note ---
Date of Service May 07, 2021 Assessment & Plan (1) Acute respiratory failure with hypoxia: Plan: Brooke is a 71-year-old female with past medical history of IBS, asthma, hypertension, diabetes mellitus type 2, fibromyalgia, fatty liver, and COVID-19 who presents with worsening shortness of breath which began 2 weeks ago but which is acutely worsened in the last 2 days. She had a positive outpatient COVID-19 test on April 26 (test obtained April 24). Was seen in the ER 05/01 and discharged home on steroids with some temporary improvement in symptoms. CTA with no PE, shows bilateral viral pneumonia fully vaccinated in spring continue dexamethasone 6mg IV daily for 10 day course procalcitonin negative, hold on antibiotics flutter valve to help with sputum production Mucinex too far out for Remdesivir, not sick enough for baricitinib try to wean oxygen as tolerated, currently doing well on 4L NC (2) 2019 novel coronavirus-infected pneumonia (NCIP): Plan: - As above dexamethasone, oxygen (3) Diabetes mellitus, type 2: Plan: Type 2 diabetes mellitus Home Lantus 20-22 units nightly, lispro 13-15 units subcu 3 times daily M. Estimated total daily dose approximately 65-70 units Lantus 12 units twice daily, correction factor 35, carb ratio 11. Goal BSG 101201 Glucose checks AC/at bedtime Pharmacy consulted for type II DM with steroid treatment and critical illness had some lows overnight, adjust regimen (4) Hypertension: Plan: Hypertension Creatinine less than 1 at baseline, currently at baseline Continue quinapril 40 mg p.o. every morning (5) Irritable bowel syndrome (IBS): Plan: IBS Continue dicyclomine Hyperlipidemia Continue pravastatin 20 mg 4 times weekly Laryngeal pharyngeal reflux Protonix 40 mg daily Famotidine 20 mg twice daily as needed for reflux (6) Asthma: Plan: Asthma Continue Flovent twice daily DuoNebs every 4 hours as needed Continue interventions and oxygen as above no wheezing on exam (7) Irregular heart beat: Plan: Reports a history of PVCs which normally have been asymptomatic, but which have worsened and become painful with prior respiratory illnesses Denies any history of ischemic heart disease, heart attack Med/surge with telemetry, no acute interventions at this time - Sinus rhythm strip without PVCs on monitor (8) Fibromyalgia: Plan: - Tylenol 650mg Q6H PRN Plan: DVT prophylaxis: Covid dosed Lovenox Diet: DM, HH Disposition: Medical telemetry, Covid CODE STATUS: Full code Admission and Anticipated Discharge Date Admission Date: May 06, 2021 Subjective patient says she is feeling a lot better compared to yesterday, can take a deeper breath, 1500mL on incentive spirometer drinking well, stopped IV fluids, not eating great has a cough with sputum production, making more sputum now confirms she has been sick since around 04/19, she and her got COVID from daughter no fevers/chills, no diarrhea, + weakness discussed importance of laying prone, on side, getting OOB to chair take this one day at a time, get her home once off oxygen but could be a while, she understands Review of Systems Review of Systems: All systems reviewed & are unremarkable except as noted in Subjective Constitutional: + fatigue and + weakness; no fever Respiratory: + cough, + dyspnea, + dyspnea on exertion and + sputum production Cardiovascular: no chest pain Gastrointestinal: no abdominal pain, no nausea, no vomiting, no constipation and no diarrhea/loose stools Physical Exam Physical Exam: General: well developed, well nourished, ill appearing female, no acute distress Neck: supple, trachea midline, normal thyroid Lungs: clear to auscultation bilaterally, no wheezing, slightly tachypneic, no accessory muscle use, no distress Heart: regular S1 and S2, no murmur, peripheral pulses normal, capillary refill normal, no edema Abdomen: soft, NT, ND, + BS, no hepatomegaly, normal to percussion Extremities: normal in appearance, no cyanosis, no petechiae, strength is 5/5 bilaterally Neuro: awake, cooperative, moves all extremities, no focal motor deficits, CN II-XII intact, sensation in extremities intact, normal speech Skin: warm, dry, no rash, normal turgor Psych: Awake, alert oriented x 3, euthymic affect Results & Data Results & Data ([facility]) Vital Signs (Past 12 Hours) Vital Signs Temp Pulse Pulse Resp BP Pulse Ox 05/07/21 07:55 36.7 C 60 18 134/84 97 05/07/21 03:06 36.4 C L 57 L 18 128/83 95 05/07/21 01:07 62 05/06/21 23:29 36.6 C 57 L 20 115/71 92 Laboratory Results Laboratory Results - last 24 hr 05/06/21 05/06/21 05/06/21 09:25 09:42 11:16 POC Glucose Estimat Average Glucose Hemoglobin A1c Total Bilirubin 0.6 Alkaline Phosphatase 151 H Troponin I < 0.015 Total Protein 6.9 Globulin 4.3 H Albumin/Globulin Ratio 0.6 L Procalcitonin < 0.05 Urine Color Urine Appearance Urine pH Ur Specific [place] Urine Protein Urine Glucose (UA) Urine Ketones Urine Blood Urine Nitrite Urine Bilirubin Urine Urobilinogen Ur Leukocyte Esterase SARS-CoV-2 (PCR) POSITIVE A* 05/06/21 05/06/21 05/06/21 14:24 17:29 20:33 POC Glucose 277 H 268 H 106 H Estimat Average Glucose Hemoglobin A1c Total Bilirubin Alkaline Phosphatase Troponin I Total Protein Globulin Albumin/Globulin Ratio Procalcitonin Urine Color Urine Appearance Urine pH Ur Specific [place] Urine Protein Urine Glucose (UA) Urine Ketones Urine Blood Urine Nitrite Urine Bilirubin Urine Urobilinogen Ur Leukocyte Esterase SARS-CoV-2 (PCR) 05/06/21 05/07/21 05/07/21 Unknown 00:04 00:07 POC Glucose 62 L* 63 L* Estimat Average Glucose Hemoglobin A1c Total Bilirubin Alkaline Phosphatase Troponin I Total Protein Globulin Albumin/Globulin Ratio Procalcitonin Urine Color Yellow Urine Appearance Clear Urine pH 7.0 Ur Specific [place] 1.031 H Urine Protein Negative Urine Glucose (UA) Negative Urine Ketones Negative Urine Blood Negative Urine Nitrite Negative Urine Bilirubin Negative Urine Urobilinogen Negative Ur Leukocyte Esterase Negative SARS-CoV-2 (PCR) 05/07/21 05/07/21 05/07/21 00:26 00:47 04:05 POC Glucose 64 L* 90 149 H Estimat Average Glucose Hemoglobin A1c Total Bilirubin Alkaline Phosphatase Troponin I Total Protein Globulin Albumin/Globulin Ratio Procalcitonin Urine Color Urine Appearance Urine pH Ur Specific [place] Urine Protein Urine Glucose (UA) Urine Ketones Urine Blood Urine Nitrite Urine Bilirubin Urine Urobilinogen Ur Leukocyte Esterase SARS-CoV-2 (PCR) 05/07/21 05/07/21 05:29 07:58 POC Glucose 77 Estimat Average Glucose 232 Hemoglobin A1c 9.7 H Total Bilirubin Alkaline Phosphatase Troponin I Total Protein Globulin Albumin/Globulin Ratio Procalcitonin Urine Color Urine Appearance Urine pH Ur Specific [place] Urine Protein Urine Glucose (UA) Urine Ketones Urine Blood Urine Nitrite Urine Bilirubin Urine Urobilinogen Ur Leukocyte Esterase SARS-CoV-2 (PCR) Medications Administered Current Inpatient Medications Acetaminophen (Acetaminophen 325 Mg Tab) 650 mg PO Q4H PRN PRN Reason: Pain or Fever Stop: 06/05/21 13:53 Last Admin: 05/07/21 05:43 Dose: 650 mg Documented by: Albuterol (Albut/Ipratrop 3mg/0.5mg Neb 3 Ml Vial) 3 ml NEB Q4R PRN PRN Reason: wheezing/shortness of breath Stop: 06/05/21 13:53 Dextrose (Dextrose 50% 50 Ml Syringe) 25 - 50 ml IV UD PRN; Protocol PRN Reason: Hypoglycemia Protocol Stop: 06/05/21 13:53 Dicyclomine HCl (Dicyclomine Hcl 10 Mg Cap) 10 mg PO BID ROBERTO Stop: 06/05/21 20:59 Last Admin: 05/07/21 08:21 Dose: 10 mg Documented by: Enalapril Maleate (Enalapril Maleate 10 Mg Tab) 40 mg PO QAM ROBERTO; Protocol Stop: 06/05/21 15:59 Last Admin: 05/07/21 08:21 Dose: 40 mg Documented by: Enoxaparin Sodium (Enoxaparin Inj 40 Mg/0.4 Ml Syr) 40 mg SQ Q12 ROBERTO Stop: 06/05/21 14:59 Last Admin: 05/07/21 08:21 Dose: 40 mg Documented by: Fluticasone Furoate (Fluticasone Furoate 100mcg 14 Puffs/Inhaler) 1 puffs INH DAILY ROBERTO; Protocol Stop: 06/05/21 15:59 Last Admin: 05/07/21 08:22 Dose: 1 puffs Documented by: Glucagon (Glucagon For Inj 1 Mg Vial) 1 mg SQ UD PRN; Protocol PRN Reason: Hypoglycemia Protocol Stop: 06/05/21 13:53 Glucose (Glucose 10 Tabs/Tube) 4 - 8 tabs PO UD PRN; Protocol PRN Reason: Hypoglycemia Protocol Stop: 06/05/21 13:53 Glucose (Glucose 40% Gel 15 Gm Tube) 15 - 30 gm PO UD PRN; Protocol PRN Reason: Hypoglycemia Protocol Stop: 06/05/21 13:53 Dexamethasone 6 mg/ Syringe 1.5 mls @ 1 mls/min IV DAILY ROBERTO Stop: 05/17/21 08:59 Last Admin: 05/07/21 08:21 Dose: 1 mls/min Documented by: Insulin Aspart (Insulin Aspart 100 Units/Ml 3 Ml Pen) 0 units SC ACHS [facility] Stop: 06/05/21 16:29 Last Admin: 05/07/21 08:23 Dose: 4 units Documented by: Insulin Glargine (Insulin Glargine Solostar 100 Units/Ml 3 Ml Pen) 0 units SC HS [facility]; Protocol Stop: 06/05/21 20:59 Last Admin: 05/06/21 21:45 Dose: 15 units Documented by: Insulin Human NPH (Insulin Human Nph) 30 units SC DAILY [facility] Stop: 06/06/21 08:59 Last Admin: 05/07/21 08:25 Dose: 30 units Documented by: Miscellaneous (Carbohydrates For Hypoglycemia ) 15 - 30 gm PO UD PRN PRN Reason: Hypoglycemia Protocol Stop: 06/05/21 13:53 Last Admin: 05/07/21 00:59 Dose: 15 gm Documented by: Miscellaneous Information (Pharmacy Glycemic Mgmt Consult) 1 ea N/A UD PRN; Protocol PRN Reason: Consult Stop: 06/05/21 13:53 Pantoprazole Sodium (Pantoprazole 40 Mg Tab) 40 mg PO [facility] Stop: 06/05/21 20:59 Last Admin: 05/06/21 20:24 Dose: 40 mg Documented by: Pravastatin Sodium (Pravastatin Sod 20 Mg Tab) 20 mg PO [email or web address]@[id number] [facility] Stop: 06/05/21 15:59 Last Admin: 05/06/21 15:28 Dose: 20 mg Documented by: PG Care Time/CCT Total # of Minutes Spent Total Time Spent with Patient: Total time spent is greater than 50% in coordination of care (as documented) at patient's floor/unit and/or counseling patient: Coding Level of Care Code 28667 Subseq Hosp Care Lvl 3 Diagnoses Acute respiratory failure with hypoxia J96.01 Diabetes mellitus, type 2 E11.9 Hypertension I10 Irritable bowel syndrome (IBS) K58.9 Asthma J45.909 2019 novel coronavirus-infected pneumonia (NCIP) U07.1; J12.82 Irregular heart beat I49.9 Fibromyalgia M79.7
--- NOTE | 2021-05-07 14:56 | Pharmacy Report ---
Pharmacy Glycemic Short Note 2 - Date of Service May 07, 2021 - Glycemic Short BSG Results (Last 24 hours): 05/06/21 05/06/21 05/07/21 17:29 20:33 00:04 POC Glucose 268 H 106 H 62 L* 05/07/21 05/07/21 05/07/21 00:07 00:26 00:47 POC Glucose 63 L* 64 L* 90 05/07/21 05/07/21 05/07/21 04:05 07:58 11:38 POC Glucose 149 H 77 80 OUTPATIENT ANTIDIABETIC REGIMEN: * Lantus 20-22 units HS, Humalog 13-25 units tidm * ordered for tomorrow AM ASSESSMENT: 05/07 * Patient received total of 72 units of insulin yesterday, of which 35 units were NPH to cover DXM and 15 units were Lantus * BSGs trending down quickly overnight, may have overestimated insulin needs on steroids as BSG dropped below <70 at midnight. Trended back up overnight into 140s, then 77 mg/dL this AM * Plan to scale back on NPH dose this AM to 30 units (0.3 units/kg) to cover DXM. Will also loosen CF/CR at lunch time today 05/06 * 71 year old admitted with COIVD pneumonia, type 2 diabetic * Started on steroids on admission, BSGs in upper 200s. Pharmacy consulted to assist with glycemic management * Plan to give NPH ~0.35 units/kg x 1 now to help coverage of steroids. Typically we target ~0.4 units/kg, however per notes patient with poorer PO intake * Plan to use stress of 3 for novolog and will add home Lantus on for HS with a scale PLAN FOR INPATIENT GLYCEMIC CONTROL: * Hold outpatient oral diabetes medications * Basal insulin * NPH 30 units daily * Lantus 10-15 units HS based upon BSG value * Bolus insulin * NovoLog per scale ACHS or Q6hrs while NPO * Goal Range: Low 110 mg/dL - High 140 mg/dL * Correction Factor: 20 mg/dL/unit * Nutritional / Prandial insulin per carb ratio of 1 unit per 8 grams CHO consumed PLAN FOR DISCHARGE: * tbd
[2021-05-07] MEDS: PANTOprazole 40 MG TAB PO SCH (20:32)
[2021-05-07] MEDS: INSULIN GLARGINE SOLOSTAR 100 UNITS/ML 3 ML PEN SC SCH (21:22)
[2021-05-08] MEDS: CARBOHYDRATES FOR HYPOGLYCEMIA PO PRN ×2 (08:04→08:19)
[2021-05-08] MEDS: dexAMETHasone 6 MG in SYRINGE 0 ML IV SCH (08:16)
[2021-05-08] MEDS: DICYCLOMINE HCL 10 MG CAP PO SCH ×2 (08:16→21:24)
[2021-05-08] MEDS: ENOXAPARIN INJ 40 MG/0.4 ML SYR SQ SCH ×2 (08:17→21:23)
[2021-05-08] MEDS: ENALAPRIL MALEATE 10 MG TAB PO SCH (08:17)
[2021-05-08] MEDS: FLUTICASONE FUROATE 100MCG 14 PUFFS/INHALER INH SCH (08:18)
[2021-05-08] MEDS: PRAVASTATIN SOD 20 MG TAB PO SCH (08:18)
[2021-05-08] MEDS: INSULIN ASPART 100 UNITS/ML 3 ML PEN SC SCH ×4 (08:18→21:17)
[2021-05-08] MEDS ORDERED: INSULIN HUMAN NPH SC SCH (09:00)
--- NOTE | 2021-05-08 09:37 | Pharmacy Report ---
Pharmacy Glycemic Short Note 2 - Date of Service May 08, 2021 - Glycemic Short BSG Results (Last 24 hours): 05/07/21 05/07/21 05/07/21 11:38 17:02 20:43 POC Glucose 80 136 H 102 H 05/08/21 05/08/21 05/08/21 07:49 07:50 08:06 POC Glucose 48 L* 45 L* 60 L* 05/08/21 08:24 POC Glucose 88 OUTPATIENT ANTIDIABETIC REGIMEN: * Lantus 20-22 units HS, Humalog 13-25 units tidm * HbA1c: 9.7% (05/07/21) ASSESSMENT: 05/08 * BSGs tightly controlled yesterday, 77, 80, 136, and 102 mg/dL * Received 53 units of insulin (30 units of NPH, 10 units of Lantus, and 13 units of prandial/correctional bolus) * Fasting BSG of 48 mg/dL this morning, per RN patient complained of some shakiness and vision issues * Treated with OJ x 2 resulting in BSG of 88 mg/dL * Will decrease NPH today in light of tight BSG control yesterday, decrease/hold Lantus 05/07 * Patient received total of 72 units of insulin yesterday, of which 35 units were NPH to cover DXM and 15 units were Lantus * BSGs trending down quickly overnight, may have overestimated insulin needs on steroids as BSG dropped below <70 at midnight. Trended back up overnight into 140s, then 77 mg/dL this AM * Plan to scale back on NPH dose this AM to 30 units (0.3 units/kg) to cover DXM. Will also loosen CF/CR at lunch time today 05/06 * 71 year old admitted with COIVD pneumonia, type 2 diabetic * Started on steroids on admission, BSGs in upper 200s. Pharmacy consulted to assist with glycemic management * Plan to give NPH ~0.35 units/kg x 1 now to help coverage of steroids. Typically we target ~0.4 units/kg, however per notes patient with poorer PO intake * Plan to use stress of 3 for novolog and will add home Lantus on for HS with a scale PLAN FOR INPATIENT GLYCEMIC CONTROL: * Hold outpatient oral diabetes medications * Basal insulin - decrease * NPH 20 units SC daily with dexamethasone * Lantus 0-5 units (see EHR for details) * Bolus insulin - continue * NovoLog per scale ACHS or Q6hrs while NPO * Goal Range: Low 110 mg/dL - High 140 mg/dL * Correction Factor: 20 mg/dL/unit * Nutritional / Prandial insulin per carb ratio of 1 unit per 8 grams CHO consumed PLAN FOR DISCHARGE: * HbA1c of 9.7% suggests poor control, however this may be partially inflated given recent acute illness and recent outpatient steroid use * Current insulin needs are below reported outpatient ones. If appetite returns to normal it is likely reasonable to continue outpatient regimen at discharge, otherwise patient may require dose reduction at discharge. * Ensure timely follow-up with managing outpatient provider
[2021-05-08] MEDS ORDERED: POTASSIUM CHLORIDE CRTAB 20 MEQ TABCR PO STA (11:30)
[2021-05-08] MEDS ORDERED: FUROSEMIDE INJ 20 MG/2 ML VIAL IV ONE (11:30)
--- NOTE | 2021-05-08 11:30 | Hospitalist Progress Note ---
Date of Service May 08, 2021 Assessment & Plan (1) Acute respiratory failure with hypoxia: Plan: Brooke is a 71-year-old female with past medical history of IBS, asthma, hypertension, diabetes mellitus type 2, fibromyalgia, fatty liver, and COVID-19 who presents with worsening shortness of breath which began 2 weeks ago but which is acutely worsened in the last 2 days. She had a positive outpatient COVID-19 test on April 26 (test obtained April 24). Was seen in the ER 05/01 and discharged home on steroids with some temporary improvement in symptoms. CTA with no PE, shows bilateral viral pneumonia fully vaccinated in spring continue dexamethasone 6mg IV daily for 10 day course, day 3 today procalcitonin negative, hold on antibiotics flutter valve to help with sputum production, she says it is helping Mucinex too far out for Remdesivir, not sick enough for baricitinib try to wean oxygen as tolerated, down slightly to 3L today give Lasix 20mg IV today, negative fluid balance to try to decrease oxygen needs (2) 2018 novel coronavirus-infected pneumonia (NCIP): Plan: - As above dexamethasone, oxygen (titrate as needed) no fever, vitals stable, feeling better overall (3) Diabetes mellitus, type 2: Plan: Type 2 diabetes mellitus Home Lantus 20-22 units nightly, lispro 13-15 units subcu 3 times daily M. Estimated total daily dose approximately 65-70 units Lantus 12 units twice daily, correction factor 35, carb ratio 11. Goal BSG 577056 Glucose checks AC/at bedtime pharmacy consulted: hypoglycemic this morning in 40's, responded to orange juice cut back on NPH, close monitoring of glucose further adjustments per pharmacy, appreciate their assistance (4) Hypertension: Plan: Hypertension Creatinine less than 1 at baseline, currently at baseline Continue quinapril 40 mg p.o. every morning (5) Irritable bowel syndrome (IBS): Plan: IBS Continue dicyclomine, no current issues Hyperlipidemia Continue pravastatin 20 mg 4 times weekly Laryngeal pharyngeal reflux Protonix 40 mg daily Famotidine 20 mg twice daily as needed for reflux (6) Asthma: Plan: Asthma Continue Flovent twice daily DuoNebs every 4 hours as needed Continue interventions and oxygen as above no wheezing on exam (7) Irregular heart beat: Plan: Reports a history of PVCs which normally have been asymptomatic, but which have worsened and become painful with prior respiratory illnesses Denies any history of ischemic heart disease, heart attack Med/surge with telemetry, no acute interventions at this time - Sinus rhythm strip without PVCs on monitor (8) Fibromyalgia: Plan: - Tylenol 650mg Q6H PRN Plan: DVT prophylaxis: Covid dosed Lovenox Diet: DM, HH Disposition: Medical telemetry, Covid CODE STATUS: Full code Admission and Anticipated Discharge Date Admission Date: May 06, 2021 Subjective patient breathing much easier, had a great night sleep stable on 3L this morning, minimal cough, no fever, no chest pain, no diarrhea will give a dose of Lasix 20mg IV, try to keep negative fluid balance since she is eating/drinking well discussed that once she is stable on room air we can get her home had some hypoglycemia this morning, pharmacy aware, will decrease the NPH Review of Systems Review of Systems: All systems reviewed & are unremarkable except as noted in Subjective Respiratory: + dyspnea and + dyspnea on exertion Physical Exam Physical Exam: General: well developed, well nourished, ill appearing female, no acute distress Neck: supple, trachea midline, normal thyroid Lungs: clear to auscultation bilaterally, no wheezing, slightly tachypneic, no accessory muscle use, no distress Heart: regular S1 and S2, no murmur, peripheral pulses normal, capillary refill normal, no edema Abdomen: soft, NT, ND, + BS, no hepatomegaly, normal to percussion Extremities: normal in appearance, no cyanosis, no petechiae, strength is 5/5 bilaterally Neuro: awake, cooperative, moves all extremities, no focal motor deficits, CN II-XII intact, sensation in extremities intact, normal speech Skin: warm, dry, no rash, normal turgor Psych: Awake, alert oriented x 3, euthymic affect Results & Data Results & Data ([facility]) Vital Signs (Past 12 Hours) Vital Signs Temp Pulse Resp BP Pulse Ox 05/08/21 07:52 36.4 C L 55 L 20 155/78 H 91 05/08/21 03:40 36.3 C L 54 L 18 145/84 H 96 Laboratory Results Laboratory Results - last 24 hr 05/07/21 05/07/21 05/07/21 11:38 17:02 20:43 POC Glucose 80 136 H 102 H 10/05/08/21 05/08/21 07:49 07:50 08:06 POC Glucose 48 L* 45 L* 60 L* 05/08/21 08:24 POC Glucose 88 Medications Administered Current Inpatient Medications Acetaminophen (Acetaminophen 325 Mg Tab) 650 mg PO Q4H PRN PRN Reason: Pain or Fever Stop: 06/05/21 13:53 Last Admin: 05/07/21 05:43 Dose: 650 mg Documented by: Albuterol (Albut/Ipratrop 3mg/0.5mg Neb 3 Ml Vial) 3 ml NEB Q4R PRN PRN Reason: wheezing/shortness of breath Stop: 06/05/21 13:53 Dextrose (Dextrose 50% 50 Ml Syringe) 25 - 50 ml IV UD PRN; Protocol PRN Reason: Hypoglycemia Protocol Stop: 06/05/21 13:53 Dicyclomine HCl (Dicyclomine Hcl 10 Mg Cap) 10 mg PO BID ROBERTO Stop: 06/05/21 20:59 Last Admin: 05/08/21 08:16 Dose: 10 mg Documented by: Enalapril Maleate (Enalapril Maleate 10 Mg Tab) 40 mg PO QAM ROBERTO; Protocol Stop: 06/05/21 15:59 Last Admin: 05/08/21 08:17 Dose: 40 mg Documented by: Enoxaparin Sodium (Enoxaparin Inj 40 Mg/0.4 Ml Syr) 40 mg SQ Q12 ROBERTO Stop: 06/05/21 14:59 Last Admin: 05/08/21 08:17 Dose: 40 mg Documented by: Fluticasone Furoate (Fluticasone Furoate 100mcg 14 Puffs/Inhaler) 1 puffs INH DAILY ROBERTO; Protocol Stop: 06/05/21 15:59 Last Admin: 05/08/21 08:18 Dose: 1 puffs Documented by: Glucagon (Glucagon For Inj 1 Mg Vial) 1 mg SQ UD PRN; Protocol PRN Reason: Hypoglycemia Protocol Stop: 06/05/21 13:53 Glucose (Glucose 10 Tabs/Tube) 4 - 8 tabs PO UD PRN; Protocol PRN Reason: Hypoglycemia Protocol Stop: 06/05/21 13:53 Glucose (Glucose 40% Gel 15 Gm Tube) 15 - 30 gm PO UD PRN; Protocol PRN Reason: Hypoglycemia Protocol Stop: 06/05/21 13:53 Dexamethasone 6 mg/ Syringe 1.5 mls @ 1 mls/min IV DAILY ROBERTO Stop: 05/17/21 08:59 Last Admin: 05/08/21 08:16 Dose: 1 mls/min Documented by: Insulin Aspart (Insulin Aspart 100 Units/Ml 3 Ml Pen) 0 units SC ACHS [facility]ERTO Stop: 06/05/21 16:29 Last Admin: 05/08/21 08:18 Dose: Not Given Documented by: Insulin Glargine (Insulin Glargine Solostar 100 Units/Ml 3 Ml Pen) 0 units SC HS [facility]; Protocol Stop: 06/05/21 20:59 Last Admin: 05/07/21 21:22 Dose: 10 units Documented by: Insulin Human NPH (Insulin Human Nph) 20 units SC DAILY [facility] Stop: 06/06/21 08:59 Last Admin: 05/08/21 09:38 Dose: 20 units Documented by: Miscellaneous (Carbohydrates For Hypoglycemia ) 15 - 30 gm PO UD PRN PRN Reason: Hypoglycemia Protocol Stop: 06/05/21 13:53 Last Admin: 05/08/21 08:19 Dose: 15 gm Documented by: Miscellaneous Information (Pharmacy Glycemic Mgmt Consult) 1 ea N/A UD PRN; Protocol PRN Reason: Consult Stop: 06/05/21 13:53 Pantoprazole Sodium (Pantoprazole 40 Mg Tab) 40 mg PO [facility] Stop: 06/05/21 20:59 Last Admin: 05/07/21 20:32 Dose: 40 mg Documented by: Pravastatin Sodium (Pravastatin Sod 20 Mg Tab) 20 mg PO MoWeFrSa@0900 [facility] Stop: 06/05/21 15:59 Last Admin: 05/08/21 08:18 Dose: 20 mg Documented by: PG Care Time/CCT Total # of Minutes Spent Total Time Spent with Patient: Total time spent is greater than 50% in coordination of care (as documented) at patient's floor/unit and/or counseling patient: Coding Level of Care Code 89843 Subseq Hosp Care Lvl 2 Diagnoses Acute respiratory failure with hypoxia J96.01 2019 novel coronavirus-infected pneumonia (NCIP) U07.1; J12.82 Diabetes mellitus, type 2 E11.9 Hypertension I10 Irritable bowel syndrome (IBS) K58.9 Asthma J45.909 Irregular heart beat I49.9 Fibromyalgia M79.7
[2021-05-08] MEDS: CIPRO 0.3%/DEXAMETHASONE 0.1% OTIC SUSP 7.5ML OT SCH ×2 (13:48→21:23)
[2021-05-08] MEDS: INSULIN GLARGINE SOLOSTAR 100 UNITS/ML 3 ML PEN SC SCH (21:18)
[2021-05-08] MEDS: PANTOprazole 40 MG TAB PO SCH (21:24)
[2021-05-09] MEDS ORDERED: INSULIN HUMAN NPH SC SCH (09:00)
[2021-05-09] MEDS: PRAVASTATIN SOD 20 MG TAB PO SCH (09:02)
[2021-05-09] MEDS: FLUTICASONE FUROATE 100MCG 14 PUFFS/INHALER INH SCH (09:02)
[2021-05-09] MEDS: ENALAPRIL MALEATE 10 MG TAB PO SCH (09:02)
[2021-05-09] MEDS: DICYCLOMINE HCL 10 MG CAP PO SCH ×2 (09:02→20:58)
[2021-05-09] MEDS: CIPRO 0.3%/DEXAMETHASONE 0.1% OTIC SUSP 7.5ML OT SCH ×2 (09:02→20:58)
[2021-05-09] MEDS: ENOXAPARIN INJ 40 MG/0.4 ML SYR SQ SCH ×2 (09:03→20:58)
--- NOTE | 2021-05-09 09:22 | Hospitalist Progress Note ---
Date of Service May 09, 2021 Assessment & Plan (1) Acute respiratory failure with hypoxia: Plan: Brooke is a 71-year-old female with past medical history of IBS, asthma, hypertension, diabetes mellitus type 2, fibromyalgia, fatty liver, and COVID-19 who presents with worsening shortness of breath which began 2 weeks ago but which is acutely worsened in the last 2 days. She had a positive outpatient COVID-19 test on April 26 (test obtained April 24). Was seen in the ER 05/01 and discharged home on steroids with some temporary improvement in symptoms. CTA with no PE, shows bilateral viral pneumonia fully vaccinated in spring continue dexamethasone 6mg IV daily for 10 day course, day 4 today procalcitonin negative, hold on antibiotics flutter valve to help with sputum production, she says it is helping Mucinex too far out for Remdesivir, not sick enough for baricitinib try to wean oxygen as tolerated, stable at 3L today good response to Lasix 20mg IV, will repeat it today (2) 2018 novel coronavirus-infected pneumonia (NCIP): Plan: - As above dexamethasone, oxygen (titrate as needed) no fever, vitals stable, feeling better overall likely 2-3 days away from discharge (3) Diabetes mellitus, type 2: Plan: Type 2 diabetes mellitus Home Lantus 20-22 units nightly, lispro 13-15 units subcu 3 times daily M. Estimated total daily dose approximately 65-70 units Lantus 12 units twice daily, correction factor 35, carb ratio 11. Goal BSG [id number] Glucose checks AC/at bedtime pharmacy consulted: hypoglycemic again this morning, will make adjustments (4) Hypertension: Plan: Hypertension Creatinine less than 1 at baseline, currently at baseline Continue quinapril 40 mg p.o. every morning (5) Irritable bowel syndrome (IBS): Plan: IBS Continue dicyclomine, no current issues Hyperlipidemia Continue pravastatin 20 mg 4 times weekly Laryngeal pharyngeal reflux Protonix 40 mg daily Famotidine 20 mg twice daily as needed for reflux (6) Asthma: Plan: Asthma Continue Flovent twice daily DuoNebs every 4 hours as needed Continue interventions and oxygen as above no wheezing on exam (7) Irregular heart beat: Plan: Reports a history of PVCs which normally have been asymptomatic, but which have worsened and become painful with prior respiratory illnesses Denies any history of ischemic heart disease, heart attack Med/surge with telemetry, no acute interventions at this time - Sinus rhythm strip without PVCs on monitor (8) Fibromyalgia: Plan: - Tylenol 650mg Q6H PRN Plan: DVT prophylaxis: Covid dosed Lovenox Diet: DM, HH Disposition: Medical telemetry, Covid CODE STATUS: Full code Admission and Anticipated Discharge Date Admission Date: May 06, 2021 Subjective patient doing well, if she could take a deep breath without coughing she would be even better eating really well made a lot of urine with lasix yesterday, will repeat today move to medical floor, stable on 3L for a few days no fever, + cough but no sputum, + dyspnea on exertion, no chest pain, no fever Review of Systems Review of Systems: All systems reviewed & are unremarkable except as noted in Subjective Physical Exam Physical Exam: General: well developed, well nourished, ill appearing female, no acute distress Neck: supple, trachea midline, normal thyroid Lungs: clear to auscultation bilaterally, no wheezing, slightly tachypneic, no accessory muscle use, no distress Heart: regular S1 and S2, no murmur, peripheral pulses normal, capillary refill normal, no edema Abdomen: soft, NT, ND, + BS, no hepatomegaly, normal to percussion Extremities: normal in appearance, no cyanosis, no petechiae, strength is 5/5 bilaterally Neuro: awake, cooperative, moves all extremities, no focal motor deficits, CN II-XII intact, sensation in extremities intact, normal speech Skin: warm, dry, no rash, normal turgor Psych: Awake, alert oriented x 3, euthymic affect Results & Data Results & Data ([facility]) Vital Signs (Past 12 Hours) Vital Signs Temp Pulse Pulse Resp BP Pulse Ox 05/09/21 07:35 49 L 05/09/21 07:27 36.4 C L 76 18 141/75 H 92 05/09/21 03:53 36.7 C 55 L 18 137/70 93 05/09/21 00:00 50 L 05/08/21 23:53 36.5 C 49 L 20 149/77 H 94 Laboratory Results Laboratory Results - last 24 hr 05/08/21 05/08/21 05/08/21 12:07 16:57 20:51 POC Glucose 223 H 252 H 198 H 05/08/21 05/09/21 05/09/21 23:35 03:58 07:30 POC Glucose 135 H 86 50 L* 05/09/21 05/09/21 05/09/21 07:31 07:32 08:22 POC Glucose 118 H 119 H 124 H Medications Administered Current Inpatient Medications Acetaminophen (Acetaminophen 325 Mg Tab) 650 mg PO Q4H PRN PRN Reason: Pain or Fever Stop: 06/05/21 13:53 Last Admin: 05/07/21 05:43 Dose: 650 mg Documented by: Albuterol (Albut/Ipratrop 3mg/0.5mg Neb 3 Ml Vial) 3 ml NEB Q4R PRN PRN Reason: wheezing/shortness of breath Stop: 06/05/21 13:53 Ciprofloxacin/Dexamethasone (Cipro 0.3%/Dexamethasone 0.1% Otic Susp 7.5ml) 4 drops OT BID ROBERTO Stop: 06/07/21 12:44 Last Admin: 05/09/21 09:02 Dose: 4 drops Documented by: Dextrose (Dextrose 50% 50 Ml Syringe) 25 - 50 ml IV UD PRN; Protocol PRN Reason: Hypoglycemia Protocol Stop: 06/05/21 13:53 Dicyclomine HCl (Dicyclomine Hcl 10 Mg Cap) 10 mg PO BID ROBERTO Stop: 06/05/21 20:59 Last Admin: 05/09/21 09:02 Dose: 10 mg Documented by: Enalapril Maleate (Enalapril Maleate 10 Mg Tab) 40 mg PO QAM ROBERTO; Protocol Stop: 06/05/21 15:59 Last Admin: 05/09/21 09:02 Dose: 40 mg Documented by: Enoxaparin Sodium (Enoxaparin Inj 40 Mg/0.4 Ml Syr) 40 mg SQ Q12 ROBERTO Stop: 06/05/21 14:59 Last Admin: 05/09/21 09:03 Dose: 40 mg Documented by: Fluticasone Furoate (Fluticasone Furoate 100mcg 14 Puffs/Inhaler) 1 puffs INH DAILY ROBERTO; Protocol Stop: 06/05/21 15:59 Last Admin: 05/09/21 09:02 Dose: 1 puffs Documented by: Glucagon (Glucagon For Inj 1 Mg Vial) 1 mg SQ UD PRN; Protocol PRN Reason: Hypoglycemia Protocol Stop: 06/05/21 13:53 Glucose (Glucose 10 Tabs/Tube) 4 - 8 tabs PO UD PRN; Protocol PRN Reason: Hypoglycemia Protocol Stop: 06/05/21 13:53 Glucose (Glucose 40% Gel 15 Gm Tube) 15 - 30 gm PO UD PRN; Protocol PRN Reason: Hypoglycemia Protocol Stop: 06/05/21 13:53 Dexamethasone 6 mg/ Syringe 1.5 mls @ 1 mls/min IV DAILY ROBERTO Stop: 05/17/21 08:59 Last Admin: 05/08/21 08:16 Dose: 1 mls/min Documented by: Insulin Aspart (Insulin Aspart 100 Units/Ml 3 Ml Pen) 0 units SC ACHS ROBERTO Stop: 06/05/21 16:29 Last Admin: 05/08/21 21:17 Dose: 3 units Documented by: Insulin Human NPH (Insulin Human Nph) 25 units SC DAILY ROBERTO Stop: 06/08/21 08:59 Miscellaneous (Carbohydrates For Hypoglycemia ) 15 - 30 gm PO UD PRN PRN Reason: Hypoglycemia Protocol Stop: 06/05/21 13:53 Last Admin: 05/08/21 08:19 Dose: 15 gm Documented by: Miscellaneous Information (Pharmacy Glycemic Mgmt Consult) 1 ea N/A UD PRN; Protocol PRN Reason: Consult Stop: 06/05/21 13:53 Pantoprazole Sodium (Pantoprazole 40 Mg Tab) 40 mg PO HS ROBERTO Stop: 06/05/21 20:59 Last Admin: 05/08/21 21:24 Dose: 40 mg Documented by: Pravastatin Sodium (Pravastatin Sod 20 Mg Tab) 20 mg PO MoWeFrSa@0900 ROBERTO Stop: 06/05/21 15:59 Last Admin: 05/09/21 09:02 Dose: 20 mg Documented by: PG Care Time/CCT Total # of Minutes Spent Total Time Spent with Patient: Total time spent is greater than 50% in coordination of care (as documented) at patient's floor/unit and/or counseling patient: Coding Level of Care Code 74717 Subseq Hosp Care Lvl 2 Diagnoses Acute respiratory failure with hypoxia J96.01 2019 novel coronavirus-infected pneumonia (NCIP) U07.1; J12.82 Diabetes mellitus, type 2 E11.9 Hypertension I10 Irritable bowel syndrome (IBS) K58.9 Asthma J45.909 Irregular heart beat I49.9 Fibromyalgia M79.7
[2021-05-09] MEDS: INSULIN ASPART 100 UNITS/ML 3 ML PEN SC SCH ×4 (09:33→21:00)
[2021-05-09] MEDS: dexAMETHasone 6 MG in SYRINGE 0 ML IV SCH (09:45)
[2021-05-09] MEDS ORDERED: FUROSEMIDE INJ 20 MG/2 ML VIAL IV ONE (12:00)
--- NOTE | 2021-05-09 14:07 | Pharmacy Report ---
Pharmacy Glycemic Short Note 2 - Date of Service May 09, 2021 - Glycemic Short BSG Results (Last 24 hours): 05/08/21 05/08/21 05/08/21 16:57 20:51 23:35 POC Glucose 252 H 198 H 135 H 05/09/21 05/09/21 05/09/21 03:58 07:30 07:31 POC Glucose 86 50 L* 118 H 05/09/21 05/09/21 05/09/21 07:32 08:22 11:53 POC Glucose 119 H 124 H 205 H OUTPATIENT ANTIDIABETIC REGIMEN: * Lantus 20-22 units HS, Humalog 13-25 units tidm * HbA1c: 9.7% (05/07/21) ASSESSMENT: 05/09: * Mayelin received 51 units of SQ insulin yesterday * 20 units NPH, 5 units Lantus, 26 units novolog * Fasting BSG of 86 mg/dL this AM, which is improved compared to previous days. Patient reports feeling shaky with blurred vision. Will d/c Lantus. * Post prandial BSG elevation due to DXM. Will tighten carb ratio and slightly increase NPH. 05/08 * BSGs tightly controlled yesterday, 77, 80, 136, and 102 mg/dL * Received 53 units of insulin (30 units of NPH, 10 units of Lantus, and 13 units of prandial/correctional bolus) * Fasting BSG of 48 mg/dL this morning, per RN patient complained of some shakiness and vision issues * Treated with OJ x 2 resulting in BSG of 88 mg/dL * Will decrease NPH today in light of tight BSG control yesterday, decrease/hold Lantus 05/07 * Patient received total of 72 units of insulin yesterday, of which 35 units were NPH to cover DXM and 15 units were Lantus * BSGs trending down quickly overnight, may have overestimated insulin needs on steroids as BSG dropped below <70 at midnight. Trended back up overnight into 140s, then 77 mg/dL this AM * Plan to scale back on NPH dose this AM to 30 units (0.3 units/kg) to cover DXM. Will also loosen CF/CR at lunch time today 05/06 * 71 year old admitted with COIVD pneumonia, type 2 diabetic * Started on steroids on admission, BSGs in upper 200s. Pharmacy consulted to assist with glycemic management * Plan to give NPH ~0.35 units/kg x 1 now to help coverage of steroids. Typically we target ~0.4 units/kg, however per notes patient with poorer PO intake * Plan to use stress of 3 for novolog and will add home Lantus on for HS with a scale PLAN FOR INPATIENT GLYCEMIC CONTROL: * Hold outpatient oral diabetes medications * Basal insulin * Increase NPH to 25 units SC daily with dexamethasone * STOP Lantus * Bolus insulin - tighten carb ratio * NovoLog per scale ACHS or Q6hrs while NPO * Goal Range: Low 110 mg/dL - High 140 mg/dL * Correction Factor: 20 mg/dL/unit * Nutritional / Prandial insulin per carb ratio of 1 unit per 6 grams CHO consumed PLAN FOR DISCHARGE: * HbA1c of 9.7% suggests poor control, however this may be partially inflated given recent acute illness and recent outpatient steroid use * Current insulin needs are below reported outpatient ones. If appetite returns to normal it is likely reasonable to continue outpatient regimen at discharge, otherwise patient may require dose reduction at discharge. * Ensure timely follow-up with managing outpatient provider
[2021-05-09] MEDS: PANTOprazole 40 MG TAB PO SCH (20:59)
[2021-05-09] MEDS: ACETAMINOPHEN 325 MG TAB PO PRN (22:33)
[2021-05-10] MEDS: FLUTICASONE FUROATE 100MCG 14 PUFFS/INHALER INH SCH (08:22)
[2021-05-10] MEDS: ENALAPRIL MALEATE 10 MG TAB PO SCH (08:23)
[2021-05-10] MEDS: ENOXAPARIN INJ 40 MG/0.4 ML SYR SQ SCH ×2 (08:23→20:03)
[2021-05-10] MEDS: dexAMETHasone 6 MG in SYRINGE 0 ML IV SCH (08:24)
[2021-05-10] MEDS: CIPRO 0.3%/DEXAMETHASONE 0.1% OTIC SUSP 7.5ML OT SCH ×2 (08:24→20:03)
--- NOTE | 2021-05-10 08:31 | Hospitalist Progress Note ---
Date of Service May 10, 2021 Assessment & Plan (1) Acute respiratory failure with hypoxia: Plan: Brooke is a 71-year-old female with past medical history of IBS, asthma, hypertension, diabetes mellitus type 2, fibromyalgia, fatty liver, and COVID-19 who presents with worsening shortness of breath which began 2 weeks ago but which is acutely worsened in the last 2 days. She had a positive outpatient COVID-19 test on April 26 (test obtained April 24). Was seen in the ER 05/01 and discharged home on steroids with some temporary improvement in symptoms. CTA with no PE, shows bilateral viral pneumonia fully vaccinated in spring continue dexamethasone 6mg IV daily for 10 day course, day 5 today, can change to PO on discharge procalcitonin negative, hold on antibiotics flutter valve to help with sputum production, she says it is helping, coughing less now Mucinex too far out for Remdesivir, not sick enough for baricitinib weaned down to 2L today, might be on room air by this evening, highest she ever required was 5L good response to Lasix 20mg IV on 05/08 and 05/09, no further doses needed anticipate discharge by tomorrow afternoon or Tuesday evening if she is room air by this evening, would get a 2 step tomorrow and try to discharge in the afternoon (2) 2019 novel coronavirus-infected pneumonia (NCIP): Plan: - As above dexamethasone, oxygen (titrate as needed) no fever, vitals stable, feeling better overall likely 1-2 days away from discharge day 5 of dexamethasone, complete 10 day course, change to PO on discharge (3) Diabetes mellitus, type 2: Plan: Type 2 diabetes mellitus Home Lantus 20-22 units nightly, lispro 13-15 units subcu 3 times daily M. Estimated total daily dose approximately 65-70 units Lantus 12 units twice daily, correction factor 35, carb ratio 11. Goal BSG [id number] Glucose checks AC/at bedtime pharmacy consulted: no hypoglycemia this morning would continue home regimen on discharge, the oral dexamethasone should have less hyperglycemic effect (4) Hypertension: Plan: Hypertension Creatinine less than 1 at baseline, currently at baseline Continue quinapril 40 mg p.o. every morning (5) Irritable bowel syndrome (IBS): Plan: IBS Continue dicyclomine, no current issues Hyperlipidemia Continue pravastatin 20 mg 4 times weekly Laryngeal pharyngeal reflux Protonix 40 mg daily Famotidine 20 mg twice daily as needed for reflux (6) Asthma: Plan: Asthma Continue Flovent twice daily DuoNebs every 4 hours as needed Continue interventions and oxygen as above no wheezing on exam the entire stay (7) Irregular heart beat: Plan: Reports a history of PVCs which normally have been asymptomatic, but which have worsened and become painful with prior respiratory illnesses Denies any history of ischemic heart disease, heart attack Med/surge with telemetry, no acute interventions at this time - Sinus rhythm strip without PVCs on monitor (8) Fibromyalgia: Plan: - Tylenol 650mg Q6H PRN Plan: DVT prophylaxis: Covid dosed Lovenox Diet: DM, HH Disposition: covid unit CODE STATUS: Full code if on room air tomorrow morning, would get a 2 step and discharge in the afternoon she has steadily improved the past 3 days Admission and Anticipated Discharge Date Admission Date: May 06, 2021 Subjective patient doing quite well today, down to 2L, no distress, 93-94% while in the room could likely try to get her down to room air this afternoon eating well, coughing less, taking deeper breaths great response to Lasix 20mg IV yesterday, no need to repeat today discussed that she might be ready for discharge tomorrow afternoon or Tuesday Review of Systems Review of Systems: All systems reviewed & are unremarkable except as noted in Subjective Respiratory: + cough, + dyspnea and + dyspnea on exertion; no sputum production Physical Exam Physical Exam: General: well developed, well nourished, ill appearing female, no acute distress Neck: supple, trachea midline, normal thyroid Lungs: clear to auscultation bilaterally, no wheezing, normal respiratory effort, no accessory muscle use, no distress, + cough Heart: regular S1 and S2, no murmur, peripheral pulses normal, capillary refill normal, no edema Abdomen: soft, NT, ND, + BS, no hepatomegaly, normal to percussion Extremities: normal in appearance, no cyanosis, no petechiae, strength is 5/5 bilaterally Neuro: awake, cooperative, moves all extremities, no focal motor deficits, CN II-XII intact, sensation in extremities intact, normal speech Skin: warm, dry, no rash, normal turgor Psych: Awake, alert oriented x 3, euthymic affect Results & Data Results & Data ([facility]) Vital Signs (Past 12 Hours) Vital Signs Temp Pulse Resp BP BP Pulse Ox 05/10/21 08:19 36.6 C 52 L 14 131/57 L 92 05/09/21 22:51 36.9 C 57 L 20 143/70 H 93 Laboratory Results Laboratory Results - last 24 hr 05/09/21 05/09/21 05/09/21 11:53 17:07 20:44 POC Glucose 205 H 232 H 198 H 05/10/21 05/10/21 03:27 08:16 POC Glucose 84 177 H Medications Administered Current Inpatient Medications Acetaminophen (Acetaminophen 325 Mg Tab) 650 mg PO Q4H PRN PRN Reason: Pain or Fever Stop: 06/05/21 13:53 Last Admin: 05/09/21 22:33 Dose: 650 mg Documented by: Albuterol (Albut/Ipratrop 3mg/0.5mg Neb 3 Ml Vial) 3 ml NEB Q4R PRN PRN Reason: wheezing/shortness of breath Stop: 06/05/21 13:53 Ciprofloxacin/Dexamethasone (Cipro 0.3%/Dexamethasone 0.1% Otic Susp 7.5ml) 4 drops OT BID ROBERTO Stop: 06/07/21 12:44 Last Admin: 05/09/21 20:58 Dose: Not Given Documented by: Dextrose (Dextrose 50% 50 Ml Syringe) 25 - 50 ml IV UD PRN; Protocol PRN Reason: Hypoglycemia Protocol Stop: 06/05/21 13:53 Dicyclomine HCl (Dicyclomine Hcl 10 Mg Cap) 10 mg PO BID ROBERTO Stop: 06/05/21 20:59 Last Admin: 05/09/21 20:58 Dose: 10 mg Documented by: Enalapril Maleate (Enalapril Maleate 10 Mg Tab) 40 mg PO QAM ROBERTO; Protocol Stop: 06/05/21 15:59 Last Admin: 05/09/21 09:02 Dose: 40 mg Documented by: Enoxaparin Sodium (Enoxaparin Inj 40 Mg/0.4 Ml Syr) 40 mg SQ Q12 ROBERTO Stop: 06/05/21 14:59 Last Admin: 05/09/21 20:58 Dose: 40 mg Documented by: Fluticasone Furoate (Fluticasone Furoate 100mcg 14 Puffs/Inhaler) 1 puffs INH DAILY ROBERTO; Protocol Stop: 06/05/21 15:59 Last Admin: 05/09/21 09:02 Dose: 1 puffs Documented by: Glucagon (Glucagon For Inj 1 Mg Vial) 1 mg SQ UD PRN; Protocol PRN Reason: Hypoglycemia Protocol Stop: 06/05/21 13:53 Glucose (Glucose 10 Tabs/Tube) 4 - 8 tabs PO UD PRN; Protocol PRN Reason: Hypoglycemia Protocol Stop: 06/05/21 13:53 Glucose (Glucose 40% Gel 15 Gm Tube) 15 - 30 gm PO UD PRN; Protocol PRN Reason: Hypoglycemia Protocol Stop: 06/05/21 13:53 Dexamethasone 6 mg/ Syringe 1.5 mls @ 1 mls/min IV DAILY ROBERTO Stop: 05/17/21 08:59 Last Admin: 05/09/21 09:45 Dose: 1 mls/min Documented by: Insulin Aspart (Insulin Aspart 100 Units/Ml 3 Ml Pen) 0 units SC ACHS ROBERTO Stop: 06/05/21 16:29 Last Admin: 05/09/21 21:00 Dose: 5 units Documented by: Insulin Human NPH (Insulin Human Nph) 30 units SC DAILY ROBERTO Stop: 06/09/21 08:59 Miscellaneous (Carbohydrates For Hypoglycemia ) 15 - 30 gm PO UD PRN PRN Reason: Hypoglycemia Protocol Stop: 06/05/21 13:53 Last Admin: 05/08/21 08:19 Dose: 15 gm Documented by: Miscellaneous Information (Pharmacy Glycemic Mgmt Consult) 1 ea N/A UD PRN; Protocol PRN Reason: Consult Stop: 06/05/21 13:53 Pantoprazole Sodium (Pantoprazole 40 Mg Tab) 40 mg PO HS ROBERTO Stop: 06/05/21 20:59 Last Admin: 05/09/21 20:59 Dose: 40 mg Documented by: Pravastatin Sodium (Pravastatin Sod 20 Mg Tab) 20 mg PO MoWeFrSa@0900 ROBERTO Stop: 06/05/21 15:59 Last Admin: 05/09/21 09:02 Dose: 20 mg Documented by: PG Care Time/CCT Total # of Minutes Spent Total Time Spent with Patient: Total time spent is greater than 50% in coordination of care (as documented) at patient's floor/unit and/or counseling patient: Coding Level of Care Code 26342 Subseq Hosp Care Lvl 3 Diagnoses Acute respiratory failure with hypoxia J96.01 2019 novel coronavirus-infected pneumonia (NCIP) U07.1; J12.82 Diabetes mellitus, type 2 E11.9 Hypertension I10 Irritable bowel syndrome (IBS) K58.9 Asthma J45.909 Irregular heart beat I49.9 Fibromyalgia M79.7
[2021-05-10] MEDS: DICYCLOMINE HCL 10 MG CAP PO SCH ×2 (09:43→20:03)
[2021-05-10] MEDS: INSULIN ASPART 100 UNITS/ML 3 ML PEN SC SCH ×4 (09:44→20:57)
[2021-05-10] MEDS: INSULIN HUMAN NPH SC SCH (09:44)
--- NOTE | 2021-05-10 14:35 | Pharmacy Report ---
Pharmacy Glycemic Short Note 2 - Date of Service May 10, 2021 - Glycemic Short BSG Results (Last 24 hours): 05/09/21 05/09/21 05/10/21 17:07 20:44 03:27 POC Glucose 232 H 198 H 84 05/10/21 05/10/21 08:16 12:02 POC Glucose 177 H 295 H OUTPATIENT ANTIDIABETIC REGIMEN: * Lantus 20-22 units HS, Humalog 13-25 units tidm * HbA1c: 9.7% (05/07/21) ASSESSMENT: 05/10: * Mayelin received 67 units of SQ insulin yesterday (25 units NPH and 42 units novolog) * No overnight/am hypoglycemia after Lantus was discontinued * Patient continues to experience post prandial hyperglycemia - will tighten Novolog CF and CR and increase NPH * of note, time between AM novolog administration and lunch BSG check was 2 hr 15 min - I imagine this contributed to severe elevation 05/09: * Mayelin received 51 units of SQ insulin yesterday * 20 units NPH, 5 units Lantus, 26 units novolog * Fasting BSG of 86 mg/dL this AM, which is improved compared to previous days. Patient reports feeling shaky with blurred vision. Will d/c Lantus. * Post prandial BSG elevation due to DXM. Will tighten carb ratio and slightly increase NPH. 05/08 * BSGs tightly controlled yesterday, 77, 80, 136, and 102 mg/dL * Received 53 units of insulin (30 units of NPH, 10 units of Lantus, and 13 units of prandial/correctional bolus) * Fasting BSG of 48 mg/dL this morning, per RN patient complained of some shakiness and vision issues * Treated with OJ x 2 resulting in BSG of 88 mg/dL * Will decrease NPH today in light of tight BSG control yesterday, decrease/hold Lantus 05/07 * Patient received total of 72 units of insulin yesterday, of which 35 units were NPH to cover DXM and 15 units were Lantus * BSGs trending down quickly overnight, may have overestimated insulin needs on steroids as BSG dropped below <70 at midnight. Trended back up overnight into 140s, then 77 mg/dL this AM * Plan to scale back on NPH dose this AM to 30 units (0.3 units/kg) to cover DXM. Will also loosen CF/CR at lunch time today 05/06 * 71 year old admitted with COIVD pneumonia, type 2 diabetic * Started on steroids on admission, BSGs in upper 200s. Pharmacy consulted to assist with glycemic management * Plan to give NPH ~0.35 units/kg x 1 now to help coverage of steroids. Typically we target ~0.4 units/kg, however per notes patient with poorer PO intake * Plan to use stress of 3 for novolog and will add home Lantus on for HS with a scale PLAN FOR INPATIENT GLYCEMIC CONTROL: * Hold outpatient oral diabetes medications * Basal insulin * Increase NPH to 30 units SC daily with dexamethasone * Bolus insulin - tighten carb ratio * NovoLog per scale ACHS or Q6hrs while NPO * Goal Range: Low 110 mg/dL - High 140 mg/dL * Correction Factor: 18 mg/dL/unit * Nutritional / Prandial insulin per carb ratio of 1 unit per 5 grams CHO consumed PLAN FOR DISCHARGE: * HbA1c of 9.7% suggests poor control, however this may be partially inflated given recent acute illness and recent outpatient steroid use * Current insulin needs are below reported outpatient ones. If appetite returns to normal it is likely reasonable to continue outpatient regimen at discharge, otherwise patient may require dose reduction at discharge. * Ensure timely follow-up with managing outpatient provider
[2021-05-10] MEDS ORDERED: INSULIN HUMAN NPH SC SCH (16:30)
[2021-05-10] MEDS: PANTOprazole 40 MG TAB PO SCH (20:03)
[2021-05-11] MEDS: ACETAMINOPHEN 325 MG TAB PO PRN ×2 (00:18→23:55)
[2021-05-11] MEDS: CARBOHYDRATES FOR HYPOGLYCEMIA PO PRN (03:22)
[2021-05-11] MEDS: DICYCLOMINE HCL 10 MG CAP PO SCH ×2 (08:43→20:12)
[2021-05-11] MEDS: dexAMETHasone 6 MG in SYRINGE 0 ML IV SCH (08:43)
[2021-05-11] MEDS: CIPRO 0.3%/DEXAMETHASONE 0.1% OTIC SUSP 7.5ML OT SCH ×3 (08:43→20:13)
[2021-05-11] MEDS: PRAVASTATIN SOD 20 MG TAB PO SCH (08:44)
[2021-05-11] MEDS: ENALAPRIL MALEATE 10 MG TAB PO SCH (08:45)
[2021-05-11] MEDS: FLUTICASONE FUROATE 100MCG 14 PUFFS/INHALER INH SCH (08:46)
[2021-05-11] MEDS: ENOXAPARIN INJ 40 MG/0.4 ML SYR SQ SCH ×2 (08:46→20:13)
[2021-05-11] MEDS: INSULIN ASPART 100 UNITS/ML 3 ML PEN SC SCH ×3 (08:48→17:57)
[2021-05-11] MEDS: INSULIN HUMAN NPH SC SCH (08:49)
--- NOTE | 2021-05-11 13:06 | Pharmacy Report ---
Pharmacy Glycemic Short Note 2 - Date of Service May 11, 2021 - Glycemic Short BSG Results (Last 24 hours): 05/10/21 05/10/21 05/11/21 17:18 20:56 03:07 POC Glucose 205 H 161 H 59 L* 05/11/21 05/11/21 05/11/21 03:08 03:35 08:28 POC Glucose 64 L* 92 190 H 05/11/21 12:16 POC Glucose 133 H OUTPATIENT ANTIDIABETIC REGIMEN: * Lantus 20-22 units HS, Humalog 13-25 units tidm * HbA1c: 9.7% (05/07/21) ASSESSMENT: 05/11: * Patient received total of 85 units of insulin yesterday, of which 35 units were NPH * Hypoglycemic early this AM, unclear if from additional NPH dose (5 units) give n at dinner or novolog dose at HS. Plan to d/c NPH at dinner and will eliminate insulin coverage for HS time to hopefully avoid BSGs trending down overnight * Continue NPH 30 units in AM to cover Dex, continue same CF/CR for now 05/10: * Mayelin received 67 units of SQ insulin yesterday (25 units NPH and 42 units novolog) * No overnight/am hypoglycemia after Lantus was discontinued * Patient continues to experience post prandial hyperglycemia - will tighten Novolog CF and CR and increase NPH * of note, time between AM novolog administration and lunch BSG check was 2 hr 15 min - I imagine this contributed to severe elevation 05/09: * Mayelin received 51 units of SQ insulin yesterday * 20 units NPH, 5 units Lantus, 26 units novolog * Fasting BSG of 86 mg/dL this AM, which is improved compared to previous days. Patient reports feeling shaky with blurred vision. Will d/c Lantus. * Post prandial BSG elevation due to DXM. Will tighten carb ratio and slightly increase NPH. 05/08 * BSGs tightly controlled yesterday, 77, 80, 136, and 102 mg/dL * Received 53 units of insulin (30 units of NPH, 10 units of Lantus, and 13 units of prandial/correctional bolus) * Fasting BSG of 48 mg/dL this morning, per RN patient complained of some shakiness and vision issues * Treated with OJ x 2 resulting in BSG of 88 mg/dL * Will decrease NPH today in light of tight BSG control yesterday, decrease/hold Lantus 05/07 * Patient received total of 72 units of insulin yesterday, of which 35 units were NPH to cover DXM and 15 units were Lantus * BSGs trending down quickly overnight, may have overestimated insulin needs on steroids as BSG dropped below <70 at midnight. Trended back up overnight into 140s, then 77 mg/dL this AM * Plan to scale back on NPH dose this AM to 30 units (0.3 units/kg) to cover DXM. Will also loosen CF/CR at lunch time today 05/06 * 71 year old admitted with COIVD pneumonia, type 2 diabetic * Started on steroids on admission, BSGs in upper 200s. Pharmacy consulted to assist with glycemic management * Plan to give NPH ~0.35 units/kg x 1 now to help coverage of steroids. Typically we target ~0.4 units/kg, however per notes patient with poorer PO intake * Plan to use stress of 3 for novolog and will add home Lantus on for HS with a scale PLAN FOR INPATIENT GLYCEMIC CONTROL: * Hold outpatient oral diabetes medications * Basal insulin * NPH to 30 units SC daily with dexamethasone * Bolus insulin - tighten carb ratio * NovoLog per scale ACHS or Q6hrs while NPO * Goal Range: Low 110 mg/dL - High 140 mg/dL * Correction Factor: 18 mg/dL/unit * Nutritional / Prandial insulin per carb ratio of 1 unit per 5 grams CHO consumed remove HS coverage for insulin PLAN FOR DISCHARGE: * HbA1c of 9.7% suggests poor control, however this may be partially inflated given recent acute illness and recent outpatient steroid use * Current insulin needs are below reported outpatient ones. If appetite returns to normal it is likely reasonable to continue outpatient regimen at discharge, otherwise patient may require dose reduction at discharge. * Ensure timely follow-up with managing outpatient provider
[2021-05-11] MEDS: PANTOprazole 40 MG TAB PO SCH (20:12)
[2021-05-11] MEDS ORDERED: INSULIN ASPART 100 UNITS/ML 3 ML PEN SC SCH (21:00)
--- NOTE | 2021-05-11 22:28 | Hospitalist Progress Note ---
Date of Service May 11, 2021 Assessment & Plan (1) Acute respiratory failure with hypoxia: Plan: Brooke is a 71-year-old female with past medical history of IBS, asthma, hypertension, diabetes mellitus type 2, fibromyalgia, fatty liver, and COVID-19 who presents with worsening shortness of breath which began 2 weeks ago but which is acutely worsened in the last 2 days. She had a positive outpatient COVID-19 test on April 26 (test obtained April 24). Was seen in the ER 05/01 and discharged home on steroids with some temporary improvement in symptoms. CTA with no PE, shows bilateral viral pneumonia fully vaccinated in spring continue dexamethasone 6mg IV daily for 10 day course, day 5 today, can change to PO on discharge procalcitonin negative, hold on antibiotics flutter valve to help with sputum production, she says it is helping, coughing less now Mucinex too far out for Remdesivir, not sick enough for baricitinib weaned down to 2L today, might be on room air by this evening, highest she ever required was 5L good response to Lasix 20mg IV on 05/08 and 05/09, no further doses needed anticipate discharge by Tuesday will obtain 2 step in AM. currently on 2 -3 liters nasal cannula (2) 2019 novel coronavirus-infected pneumonia (NCIP): Plan: - As above dexamethasone, oxygen (titrate as needed) no fever, vitals stable, feeling better overall likely 1-2 days away from discharge day 5 of dexamethasone, complete 10 day course, change to PO on discharge (3) Diabetes mellitus, type 2: Plan: Type 2 diabetes mellitus Home Lantus 20-22 units nightly, lispro 13-15 units subcu 3 times daily M. Estimated total daily dose approximately 65-70 units Lantus 12 units twice daily, correction factor 35, carb ratio 11. Goal BSG 517444 Glucose checks AC/at bedtime pharmacy consulted: no hypoglycemia this morning would continue home regimen on discharge, the oral dexamethasone should have less hyperglycemic effect (4) Hypertension: Plan: Hypertension Creatinine less than 1 at baseline, currently at baseline Continue quinapril 40 mg p.o. every morning (5) Irritable bowel syndrome (IBS): Plan: IBS Continue dicyclomine, no current issues Hyperlipidemia Continue pravastatin 20 mg 4 times weekly Laryngeal pharyngeal reflux Protonix 40 mg daily Famotidine 20 mg twice daily as needed for reflux (6) Asthma: Plan: Asthma Continue Flovent twice daily DuoNebs every 4 hours as needed Continue interventions and oxygen as above no wheezing on exam the entire stay (7) Irregular heart beat: Plan: Reports a history of PVCs which normally have been asymptomatic, but which have worsened and become painful with prior respiratory illnesses Denies any history of ischemic heart disease, heart attack Med/surge with telemetry, no acute interventions at this time - Sinus rhythm strip without PVCs on monitor (8) Fibromyalgia: Plan: - Tylenol 650mg Q6H PRN Plan: DVT prophylaxis: Covid dosed Lovenox Diet: DM, HH Disposition: covid unit CODE STATUS: Full code if on room air tomorrow morning, would get a 2 step and discharge in the afternoon she has steadily improved the past 3 days Admission and Anticipated Discharge Date Admission Date: May 06, 2021 Subjective Patient continues to feel weak and SOB. Patient does not feel ready for discharge. Review of Systems Review of Systems: All systems reviewed & are unremarkable except as noted in HPI & below Physical Exam Physical Exam: General: well deve loped, well nouris hed,no acute distr ess Neck: supple, trachea midline, n ormal thyroid Lung s: clear to auscul tation bilaterally , no wheezing, nor mal respiratory ef fort, no accessory muscle use, no di stress, + cough He art: regular S1 an d S2, no murmur, p eripheral pulses n ormal, capillary r efill normal, no e lizz Abdomen: soft , NT, ND, + BS, no hepatomegaly, nor mal to percussion Extremities: jay l in appearance, n o cyanosis, no pet echiae, strength i s 5/5 bilaterally Neuro: awake, coop erative, moves all extremities, no f ocal motor deficit s, CN II-XII intac t, sensation in ex tremities intact, normal speech Skin : warm, dry, no ra sh, normal turgor Psych: Awake, aler t oriented x 3, eu thymic affect Results & Data Results & Data ([facility]) Vital Signs (Past 12 Hours) Vital Signs Temp Pulse Resp BP BP Pulse Ox Pulse Ox 05/11/21 22:03 92 05/11/21 20:37 93 05/11/21 20:08 36.7 C 68 20 123/76 94 05/11/21 15:25 36.4 C L 52 L 16 120/69 96 PG Care Time/CCT Total # of Minutes Spent Total Time Spent with Patient: Total time spent is greater than 50% in coordination of care (as documented) at patient's floor/unit and/or counseling patient: Coding Level of Care Code 13966 Subseq Hosp Care Lvl 2 Diagnoses Acute respiratory failure with hypoxia J96.01 2019 novel coronavirus-infected pneumonia (NCIP) U07.1; J12.82 Diabetes mellitus, type 2 E11.9 Hypertension I10 Irritable bowel syndrome (IBS) K58.9 Asthma J45.909 Irregular heart beat I49.9 Fibromyalgia M79.7
[2021-05-12] MEDS ORDERED: INSULIN ASPART 100 UNITS/ML 3 ML PEN SC SCH
[2021-05-12 06:11] LABS: Hematocrit (blood only) 36.7 % (37-47); Hemoglobin 12.4 g/dL (12.0-16.0); Mean Corpuscular Hgb Conc 33.8 g/dL (32-36); Mean Corpuscular Volume 85.9 fL (80-100); Mean Platelet Volume 9.4 fL (7.4-10.4); Platelet Count 367 K/uL (130-400); RDW Coefficient of Variation 13.8 % (11.5-14.5); RDW Standard Deviation 43.4 fL (36.4-46.3); Red Blood Count 4.27 M/uL (4.2-5.4); White Blood Count 12.13 K/uL (4.8-10.8)
[2021-05-12 06:45] LABS: BUN Creatinine Ratio 24.8 (10-20); Calcium 8.5 mg/dl (8.5-10.1); Creatinine Clr Calc Pharmacy 59.6 ml/min; Est GFR (African American) 66.9 ml/min; Est GFR (Non-African American) 57.7 ml/min; Potassium 4.5 mmol/L (3.5-5.1)
[2021-05-12] MEDS: ENALAPRIL MALEATE 10 MG TAB PO SCH (08:02)
[2021-05-12] MEDS: DICYCLOMINE HCL 10 MG CAP PO SCH (08:02)
[2021-05-12] MEDS: CIPRO 0.3%/DEXAMETHASONE 0.1% OTIC SUSP 7.5ML OT SCH (08:02)
[2021-05-12] MEDS: FLUTICASONE FUROATE 100MCG 14 PUFFS/INHALER INH SCH (08:03)
[2021-05-12] MEDS: INSULIN ASPART 100 UNITS/ML 3 ML PEN SC SCH ×2 (08:54→12:26)
[2021-05-12] MEDS: dexAMETHasone 6 MG in SYRINGE 0 ML IV SCH (08:54)
[2021-05-12] MEDS: INSULIN HUMAN NPH SC SCH (08:55)
[2021-05-12] MEDS: ENOXAPARIN INJ 40 MG/0.4 ML SYR SQ SCH (08:55)
--- NOTE | 2021-05-12 10:27 | Discharge Summary ---
Date of Service May 12, 2021 Admission HPI Per Admitting Provider Mayelin is a 71-year-old female with past medical history of IBS, asthma, hypertension, diabetes mellitus type 2, fibromyalgia, fatty liver, and COVID-19 who presents with worsening shortness of breath which began 2 weeks ago but which is acutely worsened in the last 2 days. She had a positive outpatient COVID-19 test on April 26 (test obtained April 24). Was seen in the ER 05/01 and discharged home on steroids with some temporary improvement in symptoms. Daughter COVID positive. Mayelin and her had a cough and got tested as well, both tested positive along with 9 year old grandson. Everyone vaccinated except grandson. Mayelin had Moderna x2 with the second dose in August. Thought sx were alelrgies at first, first congestion/dry cough began ~ 2 weeks ago. Tested Apr 24 and was positive for COVID. Fever 102*F first time 7 days ago and profuse night sweats and shakes/rigors during the day. Came in he ER 05/01 and was placed on steroids. [place] a little better and fevers resovled by the weekend. Was using albuterol QID, but continued to feel more short of breath through the weekend and 'awful coug, bringing up red/white mucous.' Fevers and chills have not returned since being on steroids. No home oxygen requirements Asthma previously well controlled with Flovent seasonally + albuterol PRN +N/-V, little appetite, loose stool +10lb weight loss in the week from poor appetite Lost ability to smell and taste du eto sinus surgery in the past, unclear if any acute on chronic change +Sob, -chest pain, -ches tpressure, - palpitations -N/-T -Numbness, -Tingling, -Vision Change Had 1 dose of dex in ER prior visit, was d/c home on prednisone Medical History: Reviewed Medications: Reviewed. Taken no medications today Surgical History: Reviewed. Allergies: Reviewed. Multiple allegies to hives, +diarrhea and nausea to azithro. Tolerates doxy well. Social History: No tobacco products, no alcohol, no recreational drug use, no medical marijuana use. Code Status: Full Code Principal Diagnosis COVID 19 Discharge Exam General: well developed, well nourished,no acute distress Neck: supple, trachea midline, normal thyroid Lungs: clear to auscultation bilaterally, no wheezing, normal respiratory effort, no accessory muscle use, no distress, + cough Heart: regular S1 and S2, no murmur, peripheral pulses normal, capillary refill normal, no edema Abdomen: soft, NT, ND, + BS, no hepatomegaly, normal to percussion Extremities: normal in appearance, no cyanosis, no petechiae, strength is 5/5 b ilaterally Neuro: awake, cooperative, moves all extremities, no focal motor deficits, CN II-XII intact, sensation in extremities intact, normal speech Skin: warm, dry, no rash, normal turgor Psych: Awake, alert oriented x 3, euthymic affect Discharge Data Allergies Allergy/AdvReac Type Severity Reaction Status Date / Time amlodipine [From Norvasc] Allergy Intermediate severe Verified 05/06/21 10:08 fatigue Bactrim Allergy Intermediate HIVES Verified 02/21/18 15:26 cefdinir Allergy Intermediate Hives Verified 05/06/21 10:08 ezetimibe [From Zetia] Allergy Intermediate myalgia Verified 05/06/21 10:08 glyburide Allergy Intermediate ITCHING Verified 05/06/21 10:08 moxifloxacin Allergy Intermediate Hives Verified 05/06/21 10:08 Penicillins Allergy Intermediate HIVES Verified 05/06/21 10:08 Sulfa (Sulfonamide Allergy Intermediate HIVES Verified 05/06/21 10:08 Antibiotics) sulfamethoxazole Allergy Intermediate HIVES Verified 05/06/21 10:08 trimethoprim Allergy Intermediate HIVES Verified 05/06/21 10:08 bacitracin Allergy Mild skin Verified 05/06/21 10:08 [From Neosporin irritation ([id number])] dog dander Allergy Mild CONGESTION Verified 05/06/21 10:08 mold Allergy Mild CONGESTION Verified 05/06/21 10:08 neomycin Allergy Mild skin Verified 05/06/21 10:08 [From Neosporin irritation ([id number])] pollen extracts Allergy Mild CONGESTION Verified 05/06/21 10:08 polymyxin B Allergy Mild skin Verified 05/06/21 10:08 [From Neosporin irritation ([id number])] Cipro AdvReac Mild HEADACHES Verified 02/21/18 08:53 ciprofloxacin AdvReac Mild HEADACHES Verified 05/06/21 10:08 Quinolones AdvReac Mild HEADACHES Verified 05/06/21 10:08 beta block Allergy Intermediate fatigue Uncoded 05/06/21 10:08 glyburide Allergy Mild itching Uncoded 05/06/21 10:08 Consultations 05/06/21 11:31 ED Decision to Admit Stat Ordered Studies 05/06/21 09:31 CT angio chest PE protocol Stat Diabetes Follow up Diabetes Follow-up Needed for HgbA1c >9% Hospital Course (1) Acute respiratory failure with hypoxia: Brooke is a 71-year-old female with past medical history of IBS, asthma, hypertension, diabetes mellitus type 2, fibromyalgia, fatty liver, and COVID-19 who presents with worsening shortness of breath which began 2 weeks ago but which is acutely worsened in the last 2 days. She had a positive outpatient COVID-19 test on April 26 (test obtained April 24). Was seen in the ER 05/01 and discharged home on steroids with some temporary improvement in symptoms. CTA with no PE, shows bilateral viral pneumonia fully vaccinated in spring continue dexamethasone 6mg IV daily for 10 day course, day 5 today, can change to PO on discharge procalcitonin negative, hold on antibiotics flutter valve to help with sputum production, she says it is helping, coughing less now Mucinex too far out for Remdesivir, not sick enough for baricitinib weaned down to 2L today, might be on room air by this evening, highest she ever required was 5L good response to Lasix 20mg IV on 05/08 and 05/09, no further doses needed At discharge, patient passed his 2 step in AM will complete dexamethasone for 10 days today. On room air. (2) 2019 novel coronavirus-infected pneumonia (NCIP): - As above dexamethasone, oxygen (titrate as needed) no fever, vitals stable, feeling better overall likely 1-2 days away from discharge day 7 of dexamethasone, complete 10 day course, change to PO on discharge (3) Diabetes mellitus, type 2: Type 2 diabetes mellitus Home Lantus 20-22 units nightly, lispro 13-15 units subcu 3 times daily M. Estimated total daily dose approximately 65-70 units Lantus 12 units twice daily, correction factor 35, carb ratio 11. Goal BSG [id number] Glucose checks AC/at bedtime pharmacy consulted: no hypoglycemia this morning would continue home regimen on discharge, the oral dexamethasone should have less hyperglycemic effect (4) Hypertension: Hypertension Creatinine less than 1 at baseline, currently at baseline Continue quinapril 40 mg p.o. every morning (5) Irritable bowel syndrome (IBS): IBS Continue dicyclomine, no current issues Hyperlipidemia Continue pravastatin 20 mg 4 times weekly Laryngeal pharyngeal reflux Protonix 40 mg daily Famotidine 20 mg twice daily as needed for reflux (6) Asthma: Asthma Continue Flovent twice daily DuoNebs every 4 hours as needed Continue interventions and oxygen as above no wheezing on exam the entire stay (7) Irregular heart beat: Reports a history of PVCs which normally have been asymptomatic, but which have worsened and become painful with prior respiratory illnesses Denies any history of ischemic heart disease, heart attack Med/surge with telemetry, no acute interventions at this time - Sinus rhythm strip without PVCs on monitor (8) Fibromyalgia: - Tylenol 650mg Q6H PRN DVT prophylaxis: Covid dosed Lovenox Diet: DM, HH Disposition: covid unit CODE STATUS: Full code Total Time Total Time Spent Total Time Spent (In Minutes): 32 Discharge Plan Discharge Items Patient Disposition: Home - Self-Care [facility] Diagnosis: COVID + Activity: Resume your previous activity Non-emergency contact: Primary Care Provider Call non-emergency contact if: you have any medication questions Follow-up/Referrals: Katalina Miller [Primary Care Provider] - 05/18/21 9:40 am (VIRTUAL VISIT WITH DR EHSAN MARTINEZ TO + COVID. THE OFFICE WILL EMAIL YOU INFORMATION TO SET UP "ON DEMAND") Diet: Carb Consistent or DM2 Addtl Attending Provider Instructions: You have been hospitalized for an acute medical problem: covid 19. During your stay at [facility], we have made an effort to correct the problem that brought you to the hospital while keeping you as comfortable as possible. Medications were used to bring your condition under control and your discharge instructions will include directions for any medications you should take after leaving the hospital. Please make sure you see your Primary Care Provider as part of your follow up plan. Thankfully you responded to medications. You no longer require oxygen and will be placed on dexamethsone for 3 more days. Pending Studies at Discharge: No Stand-Alone Forms: [facility], Smoking Cessation Medications and DC Order Prescriptions: New dexamethasone 6 mg tablet 6 mg PO DAILY Qty: 3 RF: 0 Continued Cipro HC 0.2-1 % drops,suspension 3 drp otic (ear) BID Qty: 10 RF: 5 pantoprazole 40 mg tablet,delayed release (DR/EC) 40 mg PO HS Qty: 90 RF: 3 pravastatin 20 mg tablet 20 mg PO MOWEFRSA@09 RF: 0 triamcinolone acetonide 0.1 % ointment 1 applic topical BID PRN (Reason: Rash) RF: 0 ketotifen fumarate [Allergy Eye (ketotifen)] 0.025 % (0.035 %) drops 1 drp ophthalmic (eye) Q8H PRN (Reason: ALLERGY RELIEF) RF: 0 hydrocortisone-acetic acid 1-2 % drops 5 drp otic (ear) TID PRN (Reason: Pain and drainage) Qty: 10 RF: 5 quinapril 40 mg Tablet 40 mg PO QAM RF: 0 Flovent HFA 44 mcg/actuation Hfa Aerosol Inhaler 2 inh INHALATION BID RF: 0 albuterol sulfate [Ventolin HFA] 90 mcg/actuation Hfa Aerosol Inhaler 2 puff INHALATION QID PRN (Reason: Shortness Of Breath) RF: 0 fluticasone propionate [Flonase Allergy Relief] 50 mcg/actuation [place],Suspension 2 spray INTRANASAL BID PRN (Reason: Congestion) RF: 0 coenzyme Q10 [CoQ-10] 100 mg Capsule 100 mg PO QAM RF: 0 Lantus Solostar U-100 Insulin 100 unit/mL (3 mL) Insulin Pen 20 - 22 unit SUBCUT HS RF: 0 Cipro HC 0.2-1 % drops,suspension 4 drp otic (ear) BID PRN (Reason: Pain) RF: 0 ondansetron 4 mg tablet,disintegrating 4 mg PO Q8H PRN (Reason: Nausea) RF: 0 polyethylene glycol 3350 [Miralax] 17 gram/dose Powder 17 g PO QAM RF: 0 insulin lispro [Humalog U-100 Insulin] 100 unit/mL solution 13 - 15 unit subcut TIDM RF: 0 dicyclomine 10 mg capsule 10 mg PO BID RF: 0 Discontinued hydralazine 25 mg Tablet 25 mg PO BID RF: 0 Discharge Orders: Discharge Order (Routine); Ordered 05/12/21 Ordered By: Gilberto Patterson Admission Data Admit Date/Time: 05/06/21 12:04 Attending Provider: Gilberto Patterson Admit Provider: Deejay Cardenas Primary Care Provider: Katalina Miller Other Providers: Deejay Cardenas Other Interventions: Discharge Summary Assessment (RN) Last Done: 05/12/21 12:28 Coding Level of Care Code D/C DAY MANAGEMENT >30 MINS Diagnoses Acute respiratory failure with hypoxia J96.01 2019 novel coronavirus-infected pneumonia (NCIP) U07.1; J12.82 Diabetes mellitus, type 2 E11.9 Hypertension I10 Irritable bowel syndrome (IBS) K58.9 Asthma J45.909 Irregular heart beat I49.9 Fibromyalgia M79.7
== END 2021-05-12 13:18 | disposition home or self-care (01) | DRG 177 ==
LOC: ED 09:00 → 2S 12:04 → SUATTDRO 12:04 → 2S 12:48 → 3W 05-09 11:10

== ENCOUNTER 2021-05-15 12:11 | Observation (INO) ==
[2021-05-15] MEDS ORDERED: SODIUM CHLORIDE 0.9% 1000ML 1,000 ML IV STA (12:25)
[2021-05-15] MEDS ORDERED: MoRPHine SULFATE 4 MG/ML 1 ML CARP\\VIAL IV STA ×2 (12:25→15:03)
[2021-05-15] MEDS ORDERED: ONDANSETRON INJ 2 MG/ML 2 ML VIAL IV STA (12:25)
--- NOTE | 2021-05-15 12:28 | Emergency Department Note ---
Impression & Plan Acute pancreatitis ADMIT ED Provider Note HPI: The patient is a 71-year-old female with history of type 2 diabetes, pancreatitis, duodenal ulcer, presents the emergency department with worsening epigastric and right upper quadrant pain that has been ongoing for about the past day. Patient states that it worsened overnight into this morning and therefore she presented to the emergency room for further management. Patient denies any chest pain or shortness of breath, states the pain is mostly over her epigastrium and her right upper abdomen. States she has not had vomiting but she is nauseous. On arrival to the ED the patient is in moderate distress secondary to pain, she is otherwise alert, she is hemodynamically stable, she is saturating well on room air. ROS: -GI: Abdominal pain *10 point review systems was conducted and is otherwise negative unless stated above *Outpatient medications and allergy history reviewed PE: General: Alert, NAD HEENT: Normocephalic, atraumatic, trachea midline Eyes: Extraocular eye movement is intact, no scleral erythema Pulmonary: Clear to auscultation bilaterally, no wheezing Cardio: Regular rate and rhythm GI: Abdomen is soft, there is moderate to severe tenderness over the epigastrium to palpation, there is no guarding or rigidity : No suprapubic tenderness MSK: No evidence of trauma or malformation of the extremities, no edema Skin: No evidence of rash Neuro: Alert, no focal deficits 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 She has clear bilateral breath sounds, she is in moderate distress secondary to pain. IV was established, patient was initiated on IV fluids, lab work was obtained that does show a markedly elevated lipase, CT imaging was performed that shows some pancreatic stranding consistent with pancreatitis. Patient was given multiple doses of morphine as well as Zofran for pain and discomfort. On my reassessment she is improved. She does still have some discomfort. She has a significant leukocytosis, blood sugar is also elevated, she is high risk for potential decompensation despite her symptomatic improvement and therefore I did discuss admission with the on-call hospitalist for [facility] [place], Dr. Mensah, who accepted the patient to a monitored bed for further management and treatment of acute pancreatitis. Unclear origin of this at this time, patient states she does have a history of pancreatitis. She also has a recent diagnosis of COVID- 19. She denies any alcohol use, she does not have any significant elevation in her LFTs or bilirubin level. Patient was in agreement to the above plan she was admitted in stable/improved condition. * Diagnosis: Acute pancreatitis * Disposition: Admission Ruben Hudson DO Emergency Medicine Past Med/Surg History Medical History Anxiety Asthma HAS NOT USED RESCUE INHALER FOR A LONG TIME Diabetes mellitus, type 2 Diverticulosis of colon Environmental and seasonal allergies Fatty liver Fibromyalgia GERD (gastroesophageal reflux disease) Hearing loss in left ear History of anesthesia reaction hx of tremor with general anesthesia, BP drops with general anesthesia History of duodenal ulcer History of kidney stones Hx of pancreatitis Hyperlipidemia Hypertension IBS (irritable bowel syndrome) ? Nausea and vomiting after administration of anesthetic agent Osteoarthritis Postnasal drip PVC's (premature ventricular contractions) FOLLOW WITH DR. MOMIN Surgical History Family history of reaction to anesthesia MOTHER>TACYCARDIA AND HARD TO WAKE UP. H/O colonoscopy (09/2019) History of arthroscopy of left knee x2 History of arthroscopy of right shoulder History of colonoscopy with polypectomy (07/2015) History of cystoscopy History of esophagogastroduodenoscopy (EGD) (02/2018) History of excision of pilonidal cyst History of laminectomy L4-L5 History of right breast biopsy benign History of sinus surgery x4 History of tooth extraction History of total hysterectomy with bilateral salpingo-oophorectomy (BSO) History of wisdom tooth extraction Status post trigger finger release left middle finger Family History Unknown Crohn's disease Aunt Family history of diabetes mellitus Grandmother (Maternal) Family history of diabetes mellitus Mother Family hx of colon cancer Cancer Hypertension Sister Family hx of colon cancer Cancer Father Cancer Other Allergies No pertinent family history Denies family history of Colorectal cancer Ulcerative colitis Social History Smoking Status: Never smoker Second Hand Exposure: Yes (father smoked); Hx Alcohol Use: Yes Alcohol type: wine Hx Substance Use: No Preferred Language: Greenlandic Communication Ability: Effective Office Asst Required: No Beliefs That Will Affect Care: None marital status: Current Living Situation: Spouse current occupational status: retired How many Children do You have: 1 Feels Safe at Home: Yes Assistive Devices: None Allergies Allergies Allergy/AdvReac Type Severity Reaction Status Date / Time amlodipine [From Norvasc] Allergy Intermediate severe Verified 05/15/21 13:49 fatigue Bactrim Allergy Intermediate HIVES Verified 02/21/18 15:26 cefdinir Allergy Intermediate Hives Verified 05/15/21 13:49 ezetimibe [From Zetia] Allergy Intermediate myalgia Verified 05/15/21 13:49 glyburide Allergy Intermediate ITCHING Verified 05/15/21 13:49 moxifloxacin Allergy Intermediate Hives Verified 05/15/21 13:49 Penicillins Allergy Intermediate HIVES Verified 05/15/21 13:49 Sulfa (Sulfonamide Allergy Intermediate HIVES Verified 05/15/21 13:49 Antibiotics) sulfamethoxazole Allergy Intermediate HIVES Verified 05/15/21 13:49 trimethoprim Allergy Intermediate HIVES Verified 05/15/21 13:49 bacitracin Allergy Mild skin Verified 05/15/21 13:49 [From Neosporin irritation ([id number])] dog dander Allergy Mild CONGESTION Verified 05/15/21 13:49 mold Allergy Mild CONGESTION Verified 05/15/21 13:49 neomycin Allergy Mild skin Verified 05/15/21 13:49 [From Neosporin irritation ([id number])] pollen extracts Allergy Mild CONGESTION Verified 05/15/21 13:49 polymyxin B Allergy Mild skin Verified 05/15/21 13:49 [From Neosporin irritation ([id number])] Cipro AdvReac Mild HEADACHES Verified 02/21/18 08:53 ciprofloxacin AdvReac Mild HEADACHES Verified 05/15/21 13:49 Quinolones AdvReac Mild HEADACHES Verified 05/15/21 13:49 beta block Allergy Intermediate fatigue Uncoded 05/15/21 13:49 glyburide Allergy Mild itching Uncoded 05/15/21 13:49 Home Meds Home Medications Medication Instructions Recorded Confirmed coenzyme Q10 100 mg capsule 100 mg PO QAM 05/25/18 05/15/21 (CoQ-10) fluticasone propionate 44 2 inh INHALATION BID 05/25/18 05/15/21 mcg/actuation HFA aerosol inhaler (Flovent HFA) fluticasone propionate 50 2 spray INTRANASAL BID PRN 05/25/18 05/15/21 mcg/actuation nasal spray,suspension (Flonase Allergy Relief) insulin glargine 100 unit/mL (3 20 - 22 unit SUBCUT HS 05/25/18 05/15/21 mL) subcutaneous pen (Lantus Solostar U-100 Insulin) quinapril 40 mg tablet 40 mg PO QAM 05/25/18 05/15/21 ketotifen fumarate 0.025 % (0.035 1 drp OPHTHALMIC (EYE) Q8H PRN 06/04/20 05/15/21 %) eye drops (Zaditor) pravastatin 20 mg tablet 20 mg PO MOWEFRSA@09 tab 09/24/20 05/15/21 triamcinolone acetonide 0.1 % 1 applic TOPICAL BID PRN 09/24/20 05/15/21 topical ointment polyethylene glycol 3350 17 17 g PO QAM PRN 10/16/20 05/15/21 gram/dose oral powder (Miralax) dicyclomine 10 mg capsule 10 mg PO BID 05/01/21 05/15/21 insulin lispro 100 unit/mL 13 - 15 unit SUBCUT TIDM 05/01/21 05/15/21 subcutaneous solution (Humalog U-100 Insulin) ciprofloxacin 0.2 %-hydrocortisone 4 drp OTIC (EAR) BID PRN 05/06/21 05/15/21 1 % ear drops,suspension (Cipro HC) ondansetron 4 mg disintegrating 4 mg PO Q8H PRN 05/06/21 05/15/21 tablet Previous Rx's Medication Instructions Recorded pantoprazole 40 mg tablet,delayed 40 mg PO HS #90 tab 03/18/20 release hydrocortisone-acetic acid 1 %-2 % 5 drp OTIC (EAR) TID PRN #10 ml 06/04/20 ear drops dexamethasone 6 mg tablet 6 mg PO DAILY #3 tab 05/12/21 Results & Data (ED) Vital Signs Vital Signs - 24 hr 05/15/21 12:18 05/15/21 13:40 05/15/21 14:30 Temperature 37.0 C Temperature Source Oral Pulse Rate 57 L 66 Pulse Rate [Left Finger] 56 L Pulse Rhythm Regular Pulse Strength Normal Respiratory Rate 18 18 20 Respiratory Effort / Characteristics Non-Labored Spontaneous Respiratory Depth Normal Respiratory Pattern Regular Blood Pressure 181/76 H 160/80 H Blood Pressure [Left Arm] 153/67 H Blood Pressure Mean 111 Blood Pressure Mean [Left Arm] 95 Blood Pressure Position Sitting Blood Pressure Position [Left Arm] Sitting Pulse Oximetry 98 99 98 Oxygen Delivery Method Room Air Room Air Sepsis Recent Fever Within 48 Hours No Sepsis New/Unexplained Change in Mental Status No Sepsis Action Taken by Nursing No Action Required Laboratory Data Result diagrams: 05/15/21 12:37 05/15/21 12:37 Lab Results 05/15/21 05/15/21 05/15/21 Range/Units 12:37 12:37 13:53 WBC 17.34 H (4.8-10.8) K/uL RBC 4.60 (4.2-5.4) M/uL Hgb 13.5 (12.0-16.0) g/dL Hct 40.2 (37-47) % MCV 87.4 (80-100) fL MCH 29.3 (25-34) pg MCHC 33.6 (32-36) g/dL RDW Std Deviation 43.8 (36.4-46.3) fL RDW Coeff of Martin 13.8 (11.5-14.5) % Plt Count 387 (130-400) K/uL MPV 9.7 (7.4-10.4) fL Immature Gran % (Auto) 0.5 % Neut % (Auto) 82.8 % Lymph % (Auto) 11.7 % [place] % (Auto) 4.7 % Eos % (Auto) 0.2 % Baso % (Auto) 0.1 % Neut # (Auto) 14.37 H (1.4-6.5) K/uL Lymph # (Auto) 2.03 (1.2-3.4) K/uL [place] # (Auto) 0.82 H (0.11-0.59) K/uL Eos # (Auto) 0.03 (0-0.5) K/uL Baso # (Auto) 0.01 (0-0.2) K/uL Immature Gran # (Auto) 0.08 H (0.00-0.02) K/uL Sodium 131 L (136-145) mmol/L Potassium 4.1 (3.5-5.1) mmol/L Chloride 101 (98-107) mmol/L Carbon Dioxide 17 L (21-32) mmol/L Anion Gap 13.0 H (3-11) BUN 19 H (7-18) mg/dl Creatinine 1.07 (0.6-1.2) mg/dl Est Cr Clr Drug Dosing 51.1 ml/min Est GFR ( Amer) 60.9 ml/min Est GFR (Non-Af Amer) 52.6 ml/min BUN/Creatinine Ratio 17.9 (10-20) Glucose 309 H* (70-99) mg/dl Calcium 8.7 (8.5-10.1) mg/dl Total Bilirubin 0.5 (0.2-1) mg/dl AST 9 L (15-37) U/L ALT 33 (12-78) U/L Alkaline Phosphatase 127 H (45-117) U/L Troponin I < 0.015 (0-0.045) ng/ml Total Protein 6.7 (6.4-8.2) gm/dl Albumin 2.8 L (3.4-5.0) gm/dl Globulin 3.9 (2.5-4.0) gm/dl Albumin/Globulin Ratio 0.7 L (0.9-2) Lipase 3516 H (73-393) U/L Beta-Hydroxybutyric Acd TNP Urine Color Yellow Urine Appearance Clear (Clear) Urine pH 7.5 (4.5-7.5) Ur Specific [place] 1.008 (1.000-1.030) Urine Protein Negative (Negative) Urine Glucose (UA) Trace H (Negative) Urine Ketones Negative (Negative) Urine Blood Negative (Negative) Urine Nitrite Negative (Negative) Urine Bilirubin Negative (Negative) Urine Urobilinogen Negative (Negative) Ur Leukocyte Esterase Negative (Negative) COVID-19 Eval Order 05/15/21 Range/Units 15:36 WBC (4.8-10.8) K/uL RBC (4.2-5.4) M/uL Hgb (12.0-16.0) g/dL Hct (37-47) % MCV (80-100) fL MCH (25-34) pg MCHC (32-36) g/dL RDW Std Deviation (36.4-46.3) fL RDW Coeff of Martin (11.5-14.5) % Plt Count (130-400) K/uL MPV (7.4-10.4) fL Immature Gran % (Auto) % Neut % (Auto) % Lymph % (Auto) % [place] % (Auto) % Eos % (Auto) % Baso % (Auto) % Neut # (Auto) (1.4-6.5) K/uL Lymph # (Auto) (1.2-3.4) K/uL [place] # (Auto) (0.11-0.59) K/uL Eos # (Auto) (0-0.5) K/uL Baso # (Auto) (0-0.2) K/uL Immature Gran # (Auto) (0.00-0.02) K/uL Sodium (136-145) mmol/L Potassium (3.5-5.1) mmol/L Chloride (98-107) mmol/L Carbon Dioxide (21-32) mmol/L Anion Gap (3-11) BUN (7-18) mg/dl Creatinine (0.6-1.2) mg/dl Est Cr Clr Drug Dosing ml/min Est GFR ( Amer) ml/min Est GFR (Non-Af Amer) ml/min BUN/Creatinine Ratio (10-20) Glucose (70-99) mg/dl Calcium (8.5-10.1) mg/dl Total Bilirubin (0.2-1) mg/dl AST (15-37) U/L ALT (12-78) U/L Alkaline Phosphatase (45-117) U/L Troponin I (0-0.045) ng/ml Total Protein (6.4-8.2) gm/dl Albumin (3.4-5.0) gm/dl Globulin (2.5-4.0) gm/dl Albumin/Globulin Ratio (0.9-2) Lipase (73-393) U/L Beta-Hydroxybutyric Acd Urine Color Urine Appearance (Clear) Urine pH (4.5-7.5) Ur Specific [place] (1.000-1.030) Urine Protein (Negative) Urine Glucose (UA) (Negative) Urine Ketones (Negative) Urine Blood (Negative) Urine Nitrite (Negative) Urine Bilirubin (Negative) Urine Urobilinogen (Negative) Ur Leukocyte Esterase (Negative) COVID-19 Eval Order Covid19 at [facility] Administered Medications Discontinued Medications Sodium Chloride (Nss 1000ml) 1,000 mls @ 999 mls/hr IV .Q1H1M STA Stop: 05/15/21 13:25 Last Admin: 05/15/21 13:00 Dose: 999 mls/hr Documented by: [id number] Lactated Ringer's (Lr) 1,000 mls @ 999 mls/hr IV .Q1H1M ONE Stop: 05/15/21 14:15 Last Admin: 05/15/21 13:51 Dose: 999 mls/hr Documented by: [id number] Ioversol (Optiray 320 100ml) 94 ml IV ONCE ONE Stop: 05/15/21 14:28 Last Admin: 05/15/21 14:28 Dose: 94 ml Documented by: [id number] Morphine Sulfate (Morphine Sulfate 4 Mg/Ml 1 Ml Carp\Vial) 4 mg IV NOW STA Stop: 05/15/21 12:26 Last Admin: 05/15/21 13:00 Dose: 4 mg Documented by: [id number] Morphine Sulfate (Morphine Sulfate 4 Mg/Ml 1 Ml Carp\Vial) 4 mg IV NOW STA Stop: 05/15/21 15:04 Last Admin: 05/15/21 15:32 Dose: 4 mg Documented by: [id number] Ondansetron HCl (Ondansetron Inj 2 Mg/Ml 2 Ml Vial) 4 mg IV NOW STA Stop: 05/15/21 12:26 Last Admin: 05/15/21 13:01 Dose: 4 mg Documented by: [id number] Imaging Data Radiologist's Impression: Chest X-Ray 05/15/21 12:25 XR chest 1V portable CLINICAL HISTORY: Atypical chest pain. COMPARISON STUDY: Chest radiograph and chest CT May 06, 2021. FINDINGS: There is no pneumothorax or pleural effusion. Cardiomegaly is unchanged. Bilateral airspace opacities are noted. These have improved since prior chest radiograph and chest CT of May 06, 2021. IMPRESSION: Bilateral airspace opacities suggestive of viral pneumonia. These have mildly improved since prior chest CT and chest radiograph May 06, 2021. ACT 112: Negative or not required by law. Electronically signed by: Evaristo Villanueva M.D. 05/15/2021 1:18 PM Abdomen/Pelvis CT 05/15/21 12:48 CT abd pelvis IV con only CLINICAL HISTORY: Upper abdominal pain TECHNIQUE: Helical axial images of the abdomen and pelvis were obtained and displayed. Automated dose lowering techniques and/or adjustment according to patient size were utilized for this exam. This exam was performed with intravenous contrast. COMPARISON: Comparison is made to CT abdomen pelvis on 2017 FINDINGS: Lower chest: Interstitial opacities are seen which may represent atelectasis versus scarring. Cardiomegaly is seen. Liver: Unremarkable. No focal lesions are seen. Gallbladder and biliary tree: No calcified gallstones. Normal caliber wall. No intra- or extrahepatic biliary ductal dilation. Pancreas: There is mild fat stranding about the pancreatic head with hypodensity of the underlying pancreas. Spleen: Unremarkable. Adrenals: Unremarkable. Kidneys and ureters: Exophytic cyst with a punctate peripheral calcification is seen in the right kidney. Subcentimeter hypodensities are seen likely representing cysts. Bladder: Unremarkable. Reproductive organs: Patient is status post hysterectomy. Bowel: Unremarkable. Lymph nodes Retroperitoneal: Unremarkable. Mesenteric: Unremarkable. Pelvic: Unremarkable. Peritoneum: Normal Vessels: Atherosclerotic calcifications are seen. Abdominal wall: Injection granulomata are seen. An umbilical hernia is seen. Bones: Degenerative changes in the visualized spine. Coarsening of the trabeculation is seen most prominently in the sacrum, comparable to prior exam. IMPRESSION: 1. Subtle edema and stranding about the pancreatic head, likely representing acute pancreatitis. 2. Findings of Paget's disease most prominent in the sacrum. 3. Extensive interstitial reticular densities in the lungs which may represent atelectasis versus scarring. 4. Additional findings as above. ACT 112: Negative or not required by law. Electronically signed by: Doni Ceja M.D. 05/15/2021 2:56 PM Discharge Plan Visit Data Chief Complaint: Abdominal Pain Stated Complaint: AB PAIN ED Provider: Ruben Hudson Discharge Problem: Acute pancreatitis Patient Disposition: Home - Self-Care Discharge Instructions Interventions: ED Discharge Assessment Last Done: 05/15/21 13:40 Forms Stand Alone Forms: [facility], [facility] Emergency Department, Impor tant Visit Information Prescriptions Prescriptions: No Action pantoprazole 40 mg tablet,delayed release (DR/EC) 40 mg PO HS Qty: 90 RF: 3 pravastatin 20 mg tablet 20 mg PO MOWEFRSA@09 RF: 0 triamcinolone acetonide 0.1 % ointment 1 applic topical BID PRN (Reason: Rash) RF: 0 ketotifen fumarate [Zaditor] 0.025 % (0.035 %) drops 1 drp ophthalmic (eye) Q8H PRN (Reason: ALLERGY RELIEF) RF: 0 hydrocortisone-acetic acid 1-2 % drops 5 drp otic (ear) TID PRN (Reason: Pain and drainage) Qty: 10 RF: 5 quinapril 40 mg Tablet 40 mg PO QAM RF: 0 Flovent HFA 44 mcg/actuation Hfa Aerosol Inhaler 2 inh INHALATION BID RF: 0 fluticasone propionate [Flonase Allergy Relief] 50 mcg/actuation [place],Suspension 2 spray INTRANASAL BID PRN (Reason: Congestion) RF: 0 coenzyme Q10 [CoQ-10] 100 mg Capsule 100 mg PO QAM RF: 0 Lantus Solostar U-100 Insulin 100 unit/mL (3 mL) Insulin Pen 20 - 22 unit SUBCUT HS RF: 0 Cipro HC 0.2-1 % drops,suspension 4 drp otic (ear) BID PRN (Reason: Pain) RF: 0 ondansetron 4 mg tablet,disintegrating 4 mg PO Q8H PRN (Reason: Nausea) RF: 0 dexamethasone 6 mg tablet 6 mg PO DAILY Qty: 3 RF: 0 polyethylene glycol 3350 [Miralax] 17 gram/dose Powder 17 g PO QAM PRN (Reason: Constipation) RF: 0 insulin lispro [Humalog U-100 Insulin] 100 unit/mL solution 13 - 15 unit subcut TIDM RF: 0 dicyclomine 10 mg capsule 10 mg PO BID RF: 0 Referrals Referrals: Katalina Miller [Primary Care Provider] - Discharge Problem: Acute pancreatitis Qualifiers: Pancreatitis type: unspecified pancreatitis type Acute pancreatitis complication: unspecified Qualified Code(s): K85.90 - Acute pancreatitis without necrosis or infection, unspecified
[2021-05-15 12:45] LABS: Basophils # (auto) 0.01 K/uL (0-0.2); Basophils % (auto) 0.1 %; Eosinophils # (auto) 0.03 K/uL (0-0.5); Eosinophils % (auto) 0.2 %; Hematocrit (blood only) 40.2 % (37-47); Hemoglobin 13.5 g/dL (12.0-16.0); Immature Granulocytes # (auto) 0.08 K/uL (0.00-0.02); Immature Granulocytes % (auto) 0.5 %; Lymphocytes # (auto) 2.03 K/uL (1.2-3.4); Lymphocytes % (auto) 11.7 %; Mean Corpuscular Hemoglobin 29.3 pg (25-34); Mean Corpuscular Hgb Conc 33.6 g/dL (32-36); Mean Corpuscular Volume 87.4 fL (80-100); Mean Platelet Volume 9.7 fL (7.4-10.4); Monocytes # (auto) 0.82 K/uL (0.11-0.59); Monocytes % (auto) 4.7 %; Neutrophils # (auto) 14.37 K/uL (1.4-6.5); Neutrophils % (auto) 82.8 %; Platelet Count 387 K/uL (130-400); RDW Coefficient of Variation 13.8 % (11.5-14.5); RDW Standard Deviation 43.8 fL (36.4-46.3); White Blood Count 17.34 K/uL (4.8-10.8)
[2021-05-15 13:12] LABS: Alanine Aminotransferase 33 U/L (12-78); Albumin Globulin Ratio 0.7 (0.9-2); Albumin Level 2.8 gm/dl (3.4-5.0); Alkaline Phosphatase 127 U/L (45-117); Aspartate Aminotransferase 9 U/L (15-37); BUN Creatinine Ratio 17.9 (10-20); Bilirubin,Total 0.5 mg/dl (0.2-1); Blood Urea Nitrogen 19 mg/dl (7-18); Calcium 8.7 mg/dl (8.5-10.1); Carbon Dioxide 17 mmol/L (21-32); Chloride 101 mmol/L (98-107); Creatinine Clr Calc Pharmacy 51.1 ml/min; Est GFR (African American) 60.9 ml/min; Est GFR (Non-African American) 52.6 ml/min; Globulin 3.9 gm/dl (2.5-4.0); Glucose 309 mg/dl (70-99); Lipase 3516 U/L (73-393); Potassium 4.1 mmol/L (3.5-5.1); Sodium 131 mmol/L (136-145); Total Protein 6.7 gm/dl (6.4-8.2); Troponin I < 0.015 ng/ml (0-0.045)
[2021-05-15] MEDS ORDERED: LACTATED RINGER'S 1,000 ML IV ONE (13:15)
--- NOTE | 2021-05-15 13:19 | XRay Report ---
XR chest 1V portable CLINICAL HISTORY: Atypical chest pain. COMPARISON STUDY: Chest radiograph and chest CT May 06, 2021. FINDINGS: There is no pneumothorax or pleural effusion. Cardiomegaly is unchanged. Bilateral airspace opacities are noted. These have improved since prior chest radiograph and chest CT of May 06. IMPRESSION: Bilateral airspace opacities suggestive of viral pneumonia. These have mildly improved s claudia prior chest CT and chest radiograph May 06, 2021. ACT 112: Negative or not required by law. Electronically signed by: Evaristo Villanueva M.D. 05/15/2021 1:18 PM
[2021-05-15] MEDS ORDERED: OPTIRAY 320 100ml IV ONE (14:27)
[2021-05-15 14:31] LABS: Appearance Urine Clear (Clear); Bilirubin Urine Negative (Negative); Blood Urine Negative (Negative); Color Urine Yellow; Glucose Urine UA Trace (Negative); Ketones Urine Negative (Negative); Leukocyte Esterase Urine Negative (Negative); Nitrite Urine Negative (Negative); Protein Urine Negative (Negative); Specific Gravity Urine 1.008 (1.000-1.030); Urobilinogen Urine Negative (Negative); pH Urine 7.5 (4.5-7.5)
--- NOTE | 2021-05-15 14:57 | CT Scan Report ---
CT abd pelvis IV con only CLINICAL HISTORY: Upper abdominal pain TECHNIQUE: Helical axial images of the abdomen and pelvis were obtained and displayed. Automated dose lowering techniques and/or adjustment according to patient size were utilized for this exam. This e xam was performed with intravenous contrast. COMPARISON: Comparison is made to CT abdomen pelvis on 2017 FINDINGS: Lower chest: Interstitial opacities are seen which may represent atelectasis versus scarring. Cardio megaly is seen. Liver: Unremarkable. No focal lesions are seen. Gallbladder and biliary tree: No calcified gallstones. Normal caliber wall. No intra- or extrahepatic biliary ductal dilation. Pancreas: There is mild fat stranding about the pancreatic head with hypodensity of the underlying pa ncreas. Spleen: Unremarkable. Adrenals: Unremarkable. Kidneys and ureters: Exophytic cyst with a punctate peripheral calcification is seen in the right kid gita. Subcentimeter hypodensities are seen likely representing cysts. Bladder: Unremarkable. Reproductive organs: Patient is status post hysterectomy. Bowel: Unremarkable. Lymph nodes Retroperitoneal: Unremarkable. Mesenteric: Unremarkable. Pelvic: Unremarkable. Peritoneum: Normal Vessels: Atherosclerotic calcifications are seen. Abdominal wall: Injection granulomata are seen. An umbilical hernia is seen. Bones: Degenerative changes in the visualized spine. Coarsening of the trabeculation is seen most pro minently in the sacrum, comparable to prior exam. IMPRESSION: 1. Subtle edema and stranding about the pancreatic head, likely representing acute pancreatitis. 2. Findings of Paget's disease most prominent in the sacrum. 3. Extensive interstitial reticular densities in the lungs which may represent atelectasis versus sc arring. 4. Additional findings as above. ACT 112: Negative or not required by law. Electronically signed by: Doni Ceja M.D. 05/15/2021 2:56 PM
--- NOTE | 2021-05-15 17:06 | History & Physical Report ---
Date of Service May 15, 2021 Assessment & Plan (1) Acute pancreatitis: Plan: Clinical, biochemical, and radiographic evidence of acute pancreatitis. Cause? COVID-19 infection? It is well-documented that COVID-19 can cause such. No etoh, prior triglyceride levels wnl, calcium wnl. There has been considerable concern of biliary tract disease in the past but extensive w/u -- CT scans, u/s, HIDA scans - negative for such. She does have considerable RUQ pain on exam tonight and this warrants repeat imaging of gall bladder despite the above - will obtain RUQ u/s stat to r/o stones, cholecystitis, etc. If RUQ u/s is negative and there is still concern for a biliary tract cause - consider MRCP. Other possibility for her pancreatitis - perhaps her JOSE MANUEL inhibitor. Plan - * RUQ u/s * NPO * pain meds - dilaudid prn * generous IV fluids but caution with such in light of recent COVID and propensity for development of pulmonary edema in that context * start LR at 150cc/hr * anti-emetics * repeat labs in am * hold JOSE MANUEL inhibitor (2) Pneumonia due to COVID-19 virus: Plan: Clinically resolving; radiographically resolving. Stable in room air. Did not have dexamethasone today - this is day #10 - but in light of #1 and stable from pulmonary standpoint will defer on that final dose. She is 15+ days into her illness course with significant pulmonary improvement - spoke with infection control and isolation is no longer needed. (3) Orthostasis: Plan: 2nd to dehydration in the setting of #1. s/p fluid boluses in ER. Then continue IVF - LR - at 150cc/hr. HOLD BP meds. (4) Diabetes mellitus type 2, uncontrolled: Plan: 2nd to recent steroids, recent COVID-19 illness, and stress of #1. Will ask pharmacy to manage. Depending on length of NPO status, the BSGs itself, etc could potentially need IV insulin. Recent a1c noted to be >9%. (5) Asthma: Plan: No exacerbation at this time. Albuterol prn. Continue flovent BID. (6) Hypertension: Plan: Hold BP meds (JOSE MANUEL). (7) Hyperlipidemia: Plan: Hold statin. (8) Dehydration: Plan: Copious IVF with lactated ringers. Repeat a BMP tonight then again in am. (9) GERD (gastroesophageal reflux disease): Plan: IV PPI. (10) Paget's bone disease: Plan: Seen incidentally on CT of the abd/pelvis. Will need f/u for this with her PCP. (11) Hyponatremia: Plan: 2nd to volume depletion as well as "pseudo" hyponatremia component from high glucose. s/p IV fluids. Repeat BMP tonight and then again in am. (12) DVT prophylaxis: Plan: Heparin 5000 TID. Plan: daughter Caryl updated extensively by phone History of Present Illness Chief Complaint: abdominal pain Primary Care Provider: Katalina Miller 71yo female with T2DM, HTN, hyperlipidemia, GERD, and recent hospitalization for COVID-19 pneumonia (05/06/21 to 05/12/21) presents from home with severe RUQ and epigastric abdominal pain. Patient states she was discharged on Tuesday of this week after recovering from her COVID pneumonia. She did not require O2 at time of discharge and was sent home on 3 more days of dexamethasone. She did not take her steroid today because of her GI symptoms as noted below. She had considerable fatigue and dizziness/lightheadedness since hospital discharge despite eating/drinking well. The dizziness has been severe and she was afraid of passing out at home over the last couple of days. Her fingerstick blood sugars have been quite high over the last 3 days with most readings >300 despite compliance with her insulin regimen. Denies significant cough or dyspnea this point. Denies fevers. Yesterday morning, however, she noted nausea that persisted for most of the day. She then developed very mild epigastric and RUQ discomfort. She was still able to eat dinner last evening consisting of meatloaf & potatoes. That night she felt bloated. Her last stool was yesterday and was loose but no christine diarrhea. About 330am today the patient was awoken with severe RUQ pain that radiated into her mid to low back. The pain has been constant all day today. She also has epigastric pain but this pain is less severe/less intense. She has continued to have nausea and did vomit once earlier today. Had eggs & grits for breakfast this am which worsened her pain tremendously. Upon presentation to the ER her lipase was elevated in the 3000 range, and her CT abd/pelvis showed evidence of pancreatitis. Gall bladder was noted to be normal and without stones. During my bedside assessment she c/o persistent RUQ pain. Allergies Allergy/AdvReac Type Severity Reaction Status Date / Time amlodipine [From Norvasc] Allergy Intermediate severe Verified 05/15/21 13:49 fatigue Bactrim Allergy Intermediate HIVES Verified 02/21/18 15:26 cefdinir Allergy Intermediate Hives Verified 05/15/21 13:49 ezetimibe [From Zetia] Allergy Intermediate myalgia Verified 05/15/21 13:49 glyburide Allergy Intermediate ITCHING Verified 05/15/21 13:49 moxifloxacin Allergy Intermediate Hives Verified 05/15/21 13:49 Penicillins Allergy Intermediate HIVES Verified 05/15/21 13:49 Sulfa (Sulfonamide Allergy Intermediate HIVES Verified 05/15/21 13:49 Antibiotics) sulfamethoxazole Allergy Intermediate HIVES Verified 05/15/21 13:49 trimethoprim Allergy Intermediate HIVES Verified 05/15/21 13:49 bacitracin Allergy Mild skin Verified 05/15/21 13:49 [From Neosporin irritation ([id number])] dog dander Allergy Mild CONGESTION Verified 05/15/21 13:49 mold Allergy Mild CONGESTION Verified 05/15/21 13:49 neomycin Allergy Mild skin Verified 05/15/21 13:49 [From Neosporin irritation ([id number])] pollen extracts Allergy Mild CONGESTION Verified 05/15/21 13:49 polymyxin B Allergy Mild skin Verified 05/15/21 13:49 [From Neosporin irritation ([id number])] Cipro AdvReac Mild HEADACHES Verified 02/21/18 08:53 ciprofloxacin AdvReac Mild HEADACHES Verified 05/15/21 13:49 Quinolones AdvReac Mild HEADACHES Verified 05/15/21 13:49 beta block Allergy Intermediate fatigue Uncoded 05/15/21 13:49 glyburide Allergy Mild itching Uncoded 05/15/21 13:49 Home Medications Medication Instructions Recorded Confirmed Type coenzyme Q10 100 mg capsule 100 mg PO QAM 05/25/18 05/15/21 History (CoQ-10) fluticasone propionate 44 2 inh INHALATION BID 05/25/18 05/15/21 History mcg/actuation HFA aerosol inhaler (Flovent HFA) fluticasone propionate 50 2 spray INTRANASAL BID PRN 05/25/18 05/15/21 History mcg/actuation nasal spray,suspension (Flonase Allergy Relief) insulin glargine 100 unit/mL (3 20 - 22 unit SUBCUT HS 05/25/18 05/15/21 History mL) subcutaneous pen (Lantus Solostar U-100 Insulin) quinapril 40 mg tablet 40 mg PO QAM 05/25/18 05/15/21 History pantoprazole 40 mg tablet,delayed 40 mg PO HS #90 tab 03/18/20 05/15/21 Rx release hydrocortisone-acetic acid 1 %-2 % 5 drp OTIC (EAR) TID PRN #10 ml 06/04/20 05/15/21 Rx ear drops ketotifen fumarate 0.025 % (0.035 1 drp OPHTHALMIC (EYE) Q8H PRN 06/04/20 05/15/21 History %) eye drops (Zaditor) pravastatin 20 mg tablet 20 mg PO MOWEFRSA@09 tab 09/24/20 05/15/21 History triamcinolone acetonide 0.1 % 1 applic TOPICAL BID PRN 09/24/20 05/15/21 History topical ointment polyethylene glycol 3350 17 17 g PO QAM PRN 10/16/20 05/15/21 History gram/dose oral powder (Miralax) dicyclomine 10 mg capsule 10 mg PO BID 05/01/21 05/15/21 History insulin lispro 100 unit/mL 13 - 15 unit SUBCUT TIDM 05/01/21 05/15/21 History subcutaneous solution (Humalog U-100 Insulin) ciprofloxacin 0.2 %-hydrocortisone 4 drp OTIC (EAR) BID PRN 05/06/21 05/15/21 History 1 % ear drops,suspension (Cipro HC) ondansetron 4 mg disintegrating 4 mg PO Q8H PRN 05/06/21 05/15/21 History tablet dexamethasone 6 mg tablet 6 mg PO DAILY #3 tab 05/12/21 05/15/21 Rx Past Med/Surg History Medical History (Updated 05/15/21 @ 20:26 by John Mensah) 2018 novel coronavirus-infected pneumonia (NCIP) hospitalized 04/2021 Anxiety Asthma HAS NOT USED RESCUE INHALER FOR A LONG TIME Diabetes mellitus, type 2 Diverticulosis of colon Environmental and seasonal allergies Fatty liver Fibromyalgia GERD (gastroesophageal reflux disease) Hearing loss in left ear History of anesthesia reaction hx of tremor with general anesthesia, BP drops with general anesthesia History of duodenal ulcer History of kidney stones Hx of pancreatitis question of such vs duodenal ulcers causing her symptoms during hospital stay 02/2018 Hyperlipidemia Hypertension IBS (irritable bowel syndrome) ? Nausea and vomiting after administration of anesthetic agent Osteoarthritis Postnasal drip PVC's (premature ventricular contractions) FOLLOW WITH DR. MOMIN Surgical History Family history of reaction to anesthesia MOTHER>TACYCARDIA AND HARD TO WAKE UP. H/O colonoscopy (09/2019) History of arthroscopy of left knee x2 History of arthroscopy of right shoulder History of colonoscopy with polypectomy (07/2015) History of cystoscopy History of esophagogastroduodenoscopy (EGD) (02/2018) History of excision of pilonidal cyst History of laminectomy L4-L5 History of right breast biopsy benign History of sinus surgery x4 History of tooth extraction History of total hysterectomy with bilateral salpingo-oophorectomy (BSO) History of wisdom tooth extraction Status post trigger finger release left middle finger Family History (Updated 05/15/21 @ 18:23 by John Mensah) Unknown Crohn's disease Aunt Family history of diabetes mellitus Grandmother (Maternal) Family history of diabetes mellitus Mother Hypertension Colorectal cancer Sister Primary sclerosing cholangitis Father Prostate cancer Other Allergies Denies family history of Ulcerative colitis Social History (Updated 05/15/21 @ 18:24 by John Mensah) Smoking Status: Never smoker Second Hand Exposure: Yes (father smoked); Hx Alcohol Use: Yes Alcohol type: wine Alcohol Intake Frequency: Monthly or Less Hx Substance Use: No Preferred Language: [place] Communication Ability: Effective [place] Boss Required: No Beliefs That Will Affect Care: None marital status: Current Living Situation: Spouse current occupational status: retired 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 How many Children do You have: 1 Feels Safe at Home: Yes Assistive Devices: None Review of Systems Constitutional: + fatigue, + weakness and + anorexia; no fever and no chills Eyes: no worsening vision Ear, Nose, Mouth, Throat: + dry mouth; no ear pain, no nasal congestion and no sore throat Respiratory: + cough (rare) and + dyspnea on exertion (mild at this point in her recovery) Cardiovascular: no chest pain, no orthopnea and no edema Gastrointestinal: + abdominal pain, + bloating, + nausea, + vomiting and + diarrhea/loose stools; no blood in stools Genitourinary: no dysuria Musculoskeletal: as per Subjective / HPI and + back pain Integumentary: no rash Neurologic: no localized weakness and no loss of sensation Psychiatric: + anxiety; no abnormal sleep pattern Endocrine: since hospital d/c on 05/12 she has had BSGs of >300 Hematologic / Lymphatic: no easy bleeding and no easy bruising Physical Exam Physical Exam: gen - looks uncomfortable, pleasant, a/o x 3 eyes - PERRL, sclera anicteric HENT - nose clear; mouth - MM dry Neck - no JVD, no lymph nodes Heart - RRR, s1 s2, no murmur Lungs - minimal dry rales bases, no wheeze, good airation, no increased work of breathing Abd - distended (minimal), BS+, VERY TENDER RUQ, mild tenderness epigastric r egion, no tenderness b/l lower quadrants; no HSM Ext - no edema, pulses 2+ b/l Neuro - strength 5/5 x 4 exts; DTRs 2+ b/l Skin - no rash, no jaundice Lymph - no cervical lymph nodes psych - a/o x 3 Results & Data Results & Data ([facility]) Vital Signs (Past 12 Hours) Vital Signs Temp Pulse Pulse Resp BP BP Pulse Ox 05/15/21 14:30 56 L 20 153/67 H 98 05/15/21 13:40 66 18 160/80 H 99 05/15/21 12:18 37.0 C 57 L 18 181/76 H 98 Laboratory Results Laboratory Results - last 24 hr 05/15/21 05/15/21 05/15/21 12:37 12:37 13:53 WBC 17.34 H RBC 4.60 Hgb 13.5 Hct 40.2 MCV 87.4 MCH 29.3 MCHC 33.6 RDW Std Deviation 43.8 RDW Coeff of Martin 13.8 Plt Count 387 MPV 9.7 Immature Gran % (Auto) 0.5 Neut % (Auto) 82.8 Lymph % (Auto) 11.7 [place] % (Auto) 4.7 Eos % (Auto) 0.2 Baso % (Auto) 0.1 Neut # (Auto) 14.37 H Lymph # (Auto) 2.03 [place] # (Auto) 0.82 H Eos # (Auto) 0.03 Baso # (Auto) 0.01 Immature Gran # (Auto) 0.08 H Sodium 131 L Potassium 4.1 Chloride 101 Carbon Dioxide 17 L Anion Gap 13.0 H BUN 19 H Creatinine 1.07 Est Cr Clr Drug Dosing 51.1 Est GFR ( Amer) 60.9 Est GFR (Non-Af Amer) 52.6 BUN/Creatinine Ratio 17.9 Glucose 309 H* Calcium 8.7 Total Bilirubin 0.5 AST 9 L ALT 33 Alkaline Phosphatase 127 H Troponin I < 0.015 Total Protein 6.7 Albumin 2.8 L Globulin 3.9 Albumin/Globulin Ratio 0.7 L Lipase 3516 H Beta-Hydroxybutyric Acd TNP Urine Color Yellow Urine Appearance Clear Urine pH 7.5 Ur Specific [place] 1.008 Urine Protein Negative Urine Glucose (UA) Trace H Urine Ketones Negative Urine Blood Negative Urine Nitrite Negative Urine Bilirubin Negative Urine Urobilinogen Negative Ur Leukocyte Esterase Negative COVID-19 Eval Order SARS-CoV-2 (PCR) 05/15/21 05/15/21 15:36 15:36 WBC RBC Hgb Hct MCV MCH MCHC RDW Std Deviation RDW Coeff of Martin Plt Count MPV Immature Gran % (Auto) Neut % (Auto) Lymph % (Auto) [place] % (Auto) Eos % (Auto) Baso % (Auto) Neut # (Auto) Lymph # (Auto) [place] # (Auto) Eos # (Auto) Baso # (Auto) Immature Gran # (Auto) Sodium Potassium Chloride Carbon Dioxide Anion Gap BUN Creatinine Est Cr Clr Drug Dosing Est GFR ( Amer) Est GFR (Non-Af Amer) BUN/Creatinine Ratio Glucose Calcium Total Bilirubin AST ALT Alkaline Phosphatase Troponin I Total Protein Albumin Globulin Albumin/Globulin Ratio Lipase Beta-Hydroxybutyric Acd Urine Color Urine Appearance Urine pH Ur Specific [place] Urine Protein Urine Glucose (UA) Urine Ketones Urine Blood Urine Nitrite Urine Bilirubin Urine Urobilinogen Ur Leukocyte Esterase COVID-19 Eval Order Covid19 at [facility] SARS-CoV-2 (PCR) NEGATIVE Diagnostic Findings Chest X-Ray 05/15/21 12:25 XR chest 1V portable CLINICAL HISTORY: Atypical chest pain. COMPARISON STUDY: Chest radiograph and chest CT May 06, 2021. FINDINGS: There is no pneumothorax or pleural effusion. Cardiomegaly is unchanged. Bilateral airspace opacities are noted. These have improved since prior chest radiograph and chest CT of May 06, 2021. IMPRESSION: Bilateral airspace opacities suggestive of viral pneumonia. These have mildly improved since prior chest CT and chest radiograph May 06, 2021. ACT 112: Negative or not required by law. Electronically signed by: Evaristo Villanueva M.D. 05/15/2021 1:18 PM Abdomen/Pelvis CT 05/15/21 12:48 CT abd pelvis IV con only CLINICAL HISTORY: Upper abdominal pain TECHNIQUE: Helical axial images of the abdomen and pelvis were obtained and displayed. Automated dose lowering techniques and/or adjustment according to patient size were utilized for this exam. This exam was performed with intravenous contrast. COMPARISON: Comparison is made to CT abdomen pelvis on 2017 FINDINGS: Lower chest: Interstitial opacities are seen which may represent atelectasis ve rsus scarring. Cardiomegaly is seen. Liver: Unremarkable. No focal lesions are seen. Gallbladder and biliary tree: No calcified gallstones. Normal caliber wall. No intra- or extrahepatic biliary ductal dilation. Pancreas: There is mild fat stranding about the pancreatic head with hypodensity of the underlying pancreas. Spleen: Unremarkable. Adrenals: Unremarkable. Kidneys and ureters: Exophytic cyst with a punctate peripheral calcification is seen in the right kidney. Subcentimeter hypodensities are seen likely representing cysts. Bladder: Unremarkable. Reproductive organs: Patient is status post hysterectomy. Bowel: Unremarkable. Lymph nodes Retroperitoneal: Unremarkable. Mesenteric: Unremarkable. Pelvic: Unremarkable. Peritoneum: Normal Vessels: Atherosclerotic calcifications are seen. Abdominal wall: Injection granulomata are seen. An umbilical hernia is seen. Bones: Degenerative changes in the visualized spine. Coarsening of the trabeculation is seen most prominently in the sacrum, comparable to prior exam. IMPRESSION: 1. Subtle edema and stranding about the pancreatic head, likely representing acute pancreatitis. 2. Findings of Paget's disease most prominent in the sacrum. 3. Extensive interstitial reticular densities in the lungs which may represent atelectasis versus scarring. 4. Additional findings as above. ACT 112: Negative or not required by law. Electronically signed by: Doni Ceja M.D. 05/15/2021 2:56 PM EKG - my reading - NSR, NS ST changes I/AVL, PACs Code Status & VTE Plan Code Status full PG Care Time/CCT Total # of Minutes Spent Total Time Spent with Patient: Total time spent is greater than 50% in coordination of care (as documented) at patient's floor/unit and/or counseling patient: Coding Level of Care Code 21814 Initial Inpt Care Lvl 3 Diagnoses Acute pancreatitis K85.90 Acute pancreatitis complication: unspecified Pancreatitis type: unspecified pancreatitis type Pneumonia due to COVID-19 virus U07.1; J12.82 Orthostasis I95.1 Diabetes mellitus type 2, uncontrolled E11.65 Asthma J45.909 Hypertension I10 Hyperlipidemia E78.5 Dehydration E86.0 GERD (gastroesophageal reflux disease) K21.9 DVT prophylaxis Z29.9 Paget's bone disease M88.9 Hyponatremia E87.1 (1) Acute pancreatitis Acute pancreatitis complication: unspecified Pancreatitis type: unspecified pancreatitis type Qualified Code(s): K85.90 - Acute pancreatitis without necrosis or infection, unspecified
[2021-05-15] MEDS ORDERED: HYDROmorphone INJ 0.5 MG/0.5 ML SYR IV STA (17:47)
[2021-05-15 19:19] LABS: BUN Creatinine Ratio 16.5 (10-20); Calcium 7.9 mg/dl (8.5-10.1); Creatinine Clr Calc Pharmacy 55.2 ml/min; Est GFR (African American) 66.9 ml/min; Est GFR (Non-African American) 57.7 ml/min; Magnesium 2.2 mg/dl (1.8-2.4); Potassium 4.2 mmol/L (3.5-5.1)
[2021-05-15] MEDS: LACTATED RINGER'S 1,000 ML IV SCH (19:27)
--- NOTE | 2021-05-15 20:19 | Ultrasound Report ---
US gallbladder CLINICAL HISTORY: acute pancreatitis, RUQ pain; eval cholecystitis COMPARISON STUDY: Right upper quadrant ultrasound September 11, 2020. CT of the abdomen and pelvis perfor [facility] earlier today. FINDINGS: The pancreas is largely obscured on this exam. No hepatic lesions are identified. Hepatic e chogenicity is at the upper limits of normal. There is no biliary ductal dilatation. The common bile duct measures 3 mm in caliber. The gallbladder is normal. There are no gallstones. There is no right hydronephrosis. Note is made of a 3 cm cyst within the midpole of the right kidney. IMPRESSION: 1. No gallstones or biliary ductal dilatation. 2. Largely obscured pancreas. ACT 112: Negative or not required by law. Electronically signed by: Evaristo Villanueva M.D. 05/15/2021 8:18 PM
[2021-05-15] MEDS ORDERED: PHARMACY GLYCEMIC MGMT CONSULT PRN (20:40)
[2021-05-15] MEDS ORDERED: ONDANSETRON INJ 2 MG/ML 2 ML VIAL IV PRN (20:40)
[2021-05-15] MEDS ORDERED: FLUTICASONE PROPIONATE NA SPR 16 GM BTL PRN (20:40)
[2021-05-15] MEDS ORDERED: TRIAMCINOLONE ACET 0.1% OINT 15 GM TUBE TOP PRN (20:40)
[2021-05-15] MEDS ORDERED: INSULIN GLARGINE SOLOSTAR 100 UNITS/ML 3 ML PEN SC SCH (21:00)
[2021-05-15] MEDS ORDERED: PANTOprazole 40 MG in SYRINGE 0 ML IV ONE (21:00)
[2021-05-15] MEDS ORDERED: CARBOHYDRATES FOR HYPOGLYCEMIA PO PRN (21:15)
[2021-05-15] MEDS ORDERED: GLUCOSE 10 TABS/TUBE PO PRN (21:15)
[2021-05-15] MEDS ORDERED: GLUCOSE 40% GEL 15 GM TUBE PO PRN (21:15)
[2021-05-15] MEDS ORDERED: DEXTROSE 50% 50 ML SYRINGE IV PRN (21:15)
[2021-05-15] MEDS ORDERED: GLUCAGON FOR INJ 1 MG VIAL SQ PRN (21:15)
[2021-05-15] MEDS ORDERED: INSULIN ASPART 100 UNITS/ML 3 ML PEN SC SCH (21:15)
[2021-05-15] MEDS: HYDROmorphone INJ 0.5 MG/0.5 ML SYR IV PRN (23:21)
[2021-05-16] MEDS ORDERED: PROMETHAZINE HCL 12.5 MG in SODIUM CHLORIDE 0.9% 50 ML IV STA (01:28)
[2021-05-16] MEDS: LACTATED RINGER'S 1,000 ML IV SCH ×4 (01:47→21:20)
[2021-05-16] MEDS ORDERED: INSULIN ASPART 100 UNITS/ML 3 ML PEN SC ONE (02:00)
[2021-05-16 05:13] LABS: Basophils # (auto) 0.01 K/uL (0-0.2); Basophils % (auto) 0.1 %; Eosinophils # (auto) 0.09 K/uL (0-0.5); Eosinophils % (auto) 0.7 %; Hematocrit (blood only) 33.9 % (37-47); Hemoglobin 11.3 g/dL (12.0-16.0); Immature Granulocytes # (auto) 0.04 K/uL (0.00-0.02); Immature Granulocytes % (auto) 0.3 %; Lymphocytes # (auto) 2.04 K/uL (1.2-3.4); Lymphocytes % (auto) 16.1 %; Mean Corpuscular Hemoglobin 29.1 pg (25-34); Mean Corpuscular Hgb Conc 33.3 g/dL (32-36); Mean Corpuscular Volume 87.4 fL (80-100); Mean Platelet Volume 9.4 fL (7.4-10.4); Monocytes # (auto) 1.02 K/uL (0.11-0.59); Neutrophils # (auto) 9.49 K/uL (1.4-6.5); Neutrophils % (auto) 74.8 %; Platelet Count 343 K/uL (130-400); RDW Coefficient of Variation 14.2 % (11.5-14.5); Red Blood Count 3.88 M/uL (4.2-5.4); White Blood Count 12.69 K/uL (4.8-10.8)
[2021-05-16 05:41] LABS: Albumin Level 2.2 gm/dl (3.4-5.0); BUN Creatinine Ratio 17.9 (10-20); Calcium 7.8 mg/dl (8.5-10.1); Creatinine Clr Calc Pharmacy 58.4 ml/min; Est GFR (African American) 77.2 ml/min; Est GFR (Non-African American) 66.6 ml/min; Potassium 3.9 mmol/L (3.5-5.1)
[2021-05-16 05:50] LABS: Albumin Globulin Ratio 0.7 (0.9-2); Bilirubin,Total 0.6 mg/dl (0.2-1); Globulin 3.3 gm/dl (2.5-4.0); Total Protein 5.5 gm/dl (6.4-8.2)
--- NOTE | 2021-05-16 06:53 | Electrocardiogram Report ---
Test Reason : Blood Pressure : / mmHG Vent. Rate : 059 BPM Atrial Rate : 059 BPM P-R Int : 148 ms QRS Dur : 076 ms QT Int : 446 ms P-R-T Axes : 077 066 077 degrees QTc Int : 441 ms Sinus bradycardia with Premature atrial complexes Otherwise normal ECG When compared with ECG of 06-MAY-2021 09:12, Questionable change in QRS axis T wave amplitude has decreased in Lateral leads Confirmed by Rich Lemons ([id number]) on 05/16/2021 6:52:48 AM Referred By: Confirmed By:Rich Lemons
[2021-05-16] MEDS: HYDROmorphone INJ 0.5 MG/0.5 ML SYR IV PRN ×2 (08:11→22:28)
[2021-05-16] MEDS: FLUTICASONE FUROATE 100MCG 14 PUFFS/INHALER INH SCH (08:14)
[2021-05-16] MEDS: HEPARIN SOD 5,000 UNIT/0.5 ML VIAL SQ SCH ×3 (08:15→21:20)
[2021-05-16] MEDS: PANTOprazole 40 MG in SYRINGE 0 ML IV SCH (11:20)
[2021-05-16] MEDS: INSULIN ASPART 100 UNITS/ML 3 ML PEN SC SCH ×3 (11:24→23:52)
--- NOTE | 2021-05-16 12:09 | Pharmacy Report ---
Pharmacy Glycemic Short Note 2 - Date of Service May 16, 2021 - Glycemic Short BSG Results (Last 24 hours): 05/15/21 05/15/21 05/15/21 12:37 18:53 19:30 Glucose 309 H* 271 H POC Glucose 243 H 05/15/21 05/16/21 05/16/21 21:35 01:50 04:55 Glucose 131 H POC Glucose 216 H 142 H 05/16/21 11:23 Glucose POC Glucose 127 H OUTPATIENT ANTIDIABETIC REGIMEN: * Lantus 22-25 units HS * Humalog 13-15 units TIDM * HbA1C = 9.7% (05/07/21) * was on dexamethasone as an outpatient x 3 days for COVID-19 pneumonia ASSESSMENT: * Ms Platt is a 71 y/o F with a PMH of T2DM who presents with pancreatitis. She is NPO. * BSGs yesterday were [phone] and received Lantus 12 units plus Novolog 4 units. Hyperglycemia may have been due to dexamethasone as an outpatient. * During last admission, the patient had hypoglycemia with Lantus. After a couple days, patient did not require Lantus. * Since NPO, will d/c Lantus. * Novolog with reasonable scale for now. PLAN FOR INPATIENT GLYCEMIC CONTROL: * Basal insulin * d/c Lantus * Bolus insulin * NovoLog per scale ACHS or Q6hrs while NPO * Goal Range: Low 110 mg/dL - High 140 mg/dL * Correction Factor: 25 mg/dL/unit * Nutritional / Prandial insulin per carb ratio of 1 unit per 7 grams CHO consumed PLAN FOR DISCHARGE: * tbd
[2021-05-16] MEDS ORDERED: ACETAMINOPHEN 1,000 MG/100 ML VIAL IV STA (16:05)
--- NOTE | 2021-05-16 16:33 | Hospitalist Progress Note ---
Date of Service May 16, 2021 Assessment & Plan (1) Acute pancreatitis: Plan: Clinical, biochemical, and radiographic evidence of acute pancreatitis - etiology ? recent COVID . No etoh, TG marginally high at 160, calcium wnl. RUQ U/S obtained and no evidence of cholecystitis/cholelithiasis/CBD. LFTs WNL. * Continue NPO status, will consider ice chips/sips of clears this evening as long as she remains pain free w/o nausea * Pain meds - Dilaudid prn - one time dose ordered of IV APAP for DAVALOS * Continue IVF, reduce fluid rate to 100 ml/hr, continue with LR for anti- inflammatory properties. Caution in setting of recent COVID infection, monitor closely for s/sx of volume overload. * anti-emetics - Zofran 4mg IV q6h prn on board * repeat labs improved this AM, pt responding favorably to current management. * Trend lipase (2) Pneumonia due to COVID-19 virus: Plan: Clinically resolving; radiographically resolving. Stable on room air. She is 15+ days into her illness course with significant pulmonary improvement - spoke with infection control and isolation is no longer needed. (3) Orthostasis: Plan: 2nd to dehydration in the setting of #1. Continue IVF. Check orthostatic VS q shift. BP meds on hold. (4) Diabetes mellitus type 2, uncontrolled: Plan: 2nd to recent steroids, recent COVID-19 illness, and stress of #1. Glycemic consult placed to pharmacy, appreciate their assistance in managing. Depending on length of NPO status, the BSGs itself, etc could potentially need IV insulin. Recent a1c noted to be >9%. (5) Asthma: Plan: No exacerbation at this time. Albuterol prn. Continue flovent BID. (6) Hypertension: Plan: Hold BP meds (JOSE MANUEL). (7) Hyperlipidemia: Plan: Hold statin. (8) Dehydration: Plan: IVF with lactated ringers. (9) GERD (gastroesophageal reflux disease): Plan: IV PPI. (10) Paget's bone disease: Plan: Seen incidentally on CT of the abd/pelvis. Will need f/u for this with her PCP. (11) Hyponatremia: Plan: 2nd to volume depletion as well as "pseudo" hyponatremia component from high glucose. s/p IV fluids. Resolved. (12) DVT prophylaxis: Plan: Heparin 5000 TID. Plan: F/U labs tomorrow morning including cbc w/ diff, bmp, mag, and lipase. Admission and Anticipated Discharge Date Admission Date: May 15, 2021 [address] Mrs. Platt was seen on rounds this morning. She remains in ED as a bed hold. Pt admitted with acute pancreatitis, unclear underlying etiology. Recent COVID-19 infection, 15+ days out from beginning of infection. Pt reports feeling significantly better this morning compared to when she arrived in ED last evening. Abdominal pain nearly resolved. No N/V. Reports no appetite. Denies fever, chills, diarrhea, gu symptoms, chest pain, dyspnea. Still has a residual cough, occasionally productive. Pt just recently completed total of 9 days of Decadron for COVID PNA. Did require supplemental O2 during her recent hospitalization which she is no longer requiring. BP meds remain on hold d/t orthostatic hypotension in ED. RN just notified this afternoon pt requesting APAP for headache. No other issues reported. Review of Systems Review of Systems: CONSTITUTIONAL: Denies weight loss/gain, fever and chills, fatigue, malaise, generalized weakness. HEENT: Denies changes in vision and hearing. RESPIRATORY: +cough (residual from covid). Denies SOB, wheezing. CV: Denies palpitations, CP, lower extremity edema, orthopnea, PND. GI: +abd pain (improved) and decreased appetite. Denies nausea, vomiting and diarrhea. : Denies dysuria and urinary frequency, urgency, hesitancy. MUSCULOSKELETAL: Denies myalgia and joint pain. SKIN: Denies rash and pruritus. NEUROLOGICAL: Denies headache, syncope, focal weakness, numbness, tingling. PSYCHIATRIC: Denies recent changes in mood. Denies anxiety and depression. Physical Exam Physical Exam: GENERAL: Well-developed, well-nourished. NAD. LUNGS: Good air exchange, no conversational dyspnea or accessory muscle use. Crackles LLL. No wheezes/rhonchi. CARDIOVASCULAR: Regular rate and rhythm. No M/G/R. No JVD. ABDOMEN: Soft non-distended. Mild TTP in RUQ but reports greatly improved from yesterday. Neg ramesh's sign. Bowel sounds normoactive x 4 quad. EXTREMITIES: No edema. Non-tender. Peripheral pulses +2/4. PSYCHIATRIC: A&O. Cooperative. Appropriate mood and affect. SKIN: Warm, dry, intact. No rashes or lesions. Results & Data Results & Data ([facility]) Vital Signs (Past 12 Hours) Vital Signs Temp Pulse Pulse Pulse Resp BP BP 05/16/21 04:00 36.6 C 58 L 15 108/50 L 05/15/21 23:53 36.7 C 51 L 51 L 16 128/58 L 05/15/21 20:55 36.9 C 50 L 16 157/67 H 05/15/21 20:34 55 L 18 138/64 05/15/21 17:00 51 L 15 132/51 L 05/15/21 16:30 54 L 17 132/61 Pulse Ox 05/16/21 04:00 92 05/15/21 23:53 95 05/15/21 20:55 97 05/15/21 20:34 92 05/15/21 17:00 93 05/15/21 16:30 92 Laboratory Results 05/16/21 04:55 05/16/21 04:55 Diagnostic Findings Gallbladder Ultrasound 05/15/21 17:47 US gallbladder CLINICAL HISTORY: acute pancreatitis, RUQ pain; eval cholecystitis COMPARISON STUDY: Right upper quadrant ultrasound September 11, 2020. CT of the abdomen and pelvis performed earlier today. FINDINGS: The pancreas is largely obscured on this exam. No hepatic lesions are identified. Hepatic echogenicity is at the upper limits of normal. There is no biliary ductal dilatation. The common bile duct measures 3 mm in caliber. The gallbladder is normal. There are no gallstones. There is no right hydronephrosis. Note is made of a 3 cm cyst within the midpole of the right kidney. IMPRESSION: 1. No gallstones or biliary ductal dilatation. 2. Largely obscured pancreas. ACT 112: Negative or not required by law. Electronically signed by: Evaristo Villanueva M.D. 05/15/2021 8:18 PM Medications Administered Current Medications Fluticasone Furoate (Fluticasone Furoate 100mcg 14 Puffs/Inhaler) 1 puffs INH DAILY ROBERTO Stop: 06/15/21 08:59 Last Admin: 05/16/21 08:14 Dose: 1 puffs Documented by: Fluticasone Propionate (Fluticasone Propionate Na Spr 16 Gm Btl) 2 sprays NA BID PRN PRN Reason: Congestion Stop: 06/14/21 20:39 Heparin Sodium (Porcine) (Heparin Sod 5,000 Unit/0.5 Ml Vial) 5,000 units SQ Q8 ROBERTO Stop: 06/15/21 08:59 Last Admin: 05/16/21 13:59 Dose: 5,000 units Hydromorphone HCl (Hydromorphone Inj 0.5 Mg/0.5 Ml Syr) 0.25 mg IV Q3H PRN PRN Reason: Pain Stop: 05/29/21 20:39 Last Admin: 05/16/21 08:11 Dose: 0.25 mg Lactated Ringer's (Lr) 1,000 mls @ 100 mls/hr IV .Q10H ROBERTO Stop: 06/14/21 17:59 Last Admin: 05/16/21 15:58 Dose: 150 mls/hr Pantoprazole Sodium 40 mg/ (Syringe) 10 mls @ 5 mls/min IV DAILY@1100 ROBERTO Stop: 06/15/21 10:59 Last Admin: 05/16/21 11:20 Dose: 5 mls/min Documented by: Insulin Aspart (Insulin Aspart 100 Units/Ml 3 Ml Pen) 0 units SC Q6 ROBERTO; Protocol Stop: 06/15/21 11:59 Last Admin: 05/16/21 11:24 Dose: Not Given Documented by: Ondansetron HCl (Ondansetron Inj 2 Mg/Ml 2 Ml Vial) 4 mg IV Q6H PRN PRN Reason: Nausea Stop: 06/14/21 20:39 Last Admin: 05/15/21 22:15 Dose: 4 mg Triamcinolone Acetonide (Triamcinolone Acet 0.1% Oint 15 Gm Tube) 1 appln TOP BID PRN PRN Reason: Rash Stop: 06/14/21 20:39 PG Care Time/CCT Total # of Minutes Spent Total Time Spent with Patient: Total time spent is greater than 50% in coordination of care (as documented) at patient's floor/unit and/or counseling patient: Coding Level of Care Code 04905 Subseq Hosp Care Lvl 2 Diagnoses Acute pancreatitis K85.90 Acute pancreatitis complication: unspecified Pancreatitis type: unspecified pancreatitis type Pneumonia due to COVID-19 virus U07.1; J12.82 Orthostasis I95.1 Diabetes mellitus type 2, uncontrolled E11.65 Asthma J45.909 Hypertension I10 Hyperlipidemia E78.5 Dehydration E86.0 GERD (gastroesophageal reflux disease) K21.9 Paget's bone disease M88.9 Hyponatremia E87.1 DVT prophylaxis Z29.9 (1) Acute pancreatitis Acute pancreatitis complication: unspecified Pancreatitis type: unspecified pancreatitis type Qualified Code(s): K85.90 - Acute pancreatitis without necrosis or infection, unspecified
[2021-05-16] MEDS ORDERED: INSULIN GLARGINE SOLOSTAR 100 UNITS/ML 3 ML PEN SC SCH (21:00)
[2021-05-17] MEDS: LACTATED RINGER'S 1,000 ML IV SCH (03:13)
[2021-05-17] MEDS: HYDROmorphone INJ 0.5 MG/0.5 ML SYR IV PRN ×3 (03:18→21:27)
[2021-05-17] MEDS: HEPARIN SOD 5,000 UNIT/0.5 ML VIAL SQ SCH ×3 (06:21→21:27)
[2021-05-17] MEDS: INSULIN ASPART 100 UNITS/ML 3 ML PEN SC SCH ×4 (06:26→23:06)
[2021-05-17 06:55] LABS: Eosinophils % (auto) 2.7 %; Hematocrit (blood only) 34.8 % (37-47); Hemoglobin 11.1 g/dL (12.0-16.0); Immature Granulocytes # (auto) 0.03 K/uL (0.00-0.02); Immature Granulocytes % (auto) 0.4 %; Lymphocytes # (auto) 1.42 K/uL (1.2-3.4); Lymphocytes % (auto) 18.9 %; Mean Corpuscular Hemoglobin 28.7 pg (25-34); Mean Corpuscular Hgb Conc 31.9 g/dL (32-36); Mean Corpuscular Volume 89.9 fL (80-100); Mean Platelet Volume 10.2 fL (7.4-10.4); Monocytes # (auto) 0.59 K/uL (0.11-0.59); Monocytes % (auto) 7.8 %; Neutrophils # (auto) 5.28 K/uL (1.4-6.5); Neutrophils % (auto) 70.2 %; Platelet Count 237 K/uL (130-400); RDW Coefficient of Variation 14.4 % (11.5-14.5); RDW Standard Deviation 47.5 fL (36.4-46.3); Red Blood Count 3.87 M/uL (4.2-5.4); White Blood Count 7.52 K/uL (4.8-10.8)
[2021-05-17 07:26] LABS: Calcium 7.9 mg/dl (8.5-10.1); Creatinine Clr Calc Pharmacy 92.2 ml/min; Est GFR (African American) 104.3 ml/min; Magnesium 2.2 mg/dl (1.8-2.4); Potassium 3.9 mmol/L (3.5-5.1)
[2021-05-17] MEDS: FLUTICASONE FUROATE 100MCG 14 PUFFS/INHALER INH SCH (07:44)
--- NOTE | 2021-05-17 10:36 | Discharge Summary ---
Date of Service May 17, 2021 Admission HPI Per Admitting Provider 71yo female with T2DM, HTN, hyperlipidemia, GERD, and recent hospitalization for COVID-19 pneumonia (05/06/21 to 05/12/21) presented from home with severe RUQ and epigastric abdominal pain. Patient states she was discharged on Tuesday of this week after recovering from her COVID pneumonia. She did not require O2 at time of discharge and was sent home on 3 more days of dexamethasone. She did not take her steroid on day of admission because of her GI symptoms as noted below. She had considerable fatigue and dizziness/lightheadedness since hospital discharge despite eating/drinking well. The dizziness has been severe and she was afraid of passing out at home over the last couple of days. Her fingerstick blood sugars have been quite high over the last 3 days with most readings >300 despite compliance with her insulin regimen. Denies significant cough or dyspnea this point. Denies fevers. 05/14 morning, however, she noted nausea that persisted for most of the day. She then developed very mild epigastric and RUQ discomfort. She was still able to eat dinner last evening consisting of meatloaf & potatoes. That night she felt bloated. Her last stool was yesterday and was loose but no christine diarrhea. About 330am 05/15 the patient was awoken with severe RUQ pain that radiated into her mid to low back. The pain has been constant all day today. She also has epigastric pain but this pain is less severe/less intense. She has continued to have nausea and did vomit once earlier today. Had eggs & grits for breakfast on day of presentation which worsened her pain tremendously leading her to seek e valuation in the ED. Upon presentation to the ER her lipase was elevated in the 3000 range, and her CT abd/pelvis showed evidence of pancreatitis. Gallbladder was noted to be normal and without stones. Admission Exam Per Admitting Provider gen - looks uncomfortable, pleasant, a/o x 3 eyes - PERRL, sclera anicteric HENT - nose clear; mouth - MM dry Neck - no JVD, no lymph nodes Heart - RRR, s1 s2, no murmur Lungs - minimal dry rales bases, no wheeze, good airation, no increased work of breathing Abd - distended (minimal), BS+, VERY TENDER RUQ, mild tenderness epigastric region, no tenderness b/l lower quadrants; no HSM Ext - no edema, pulses 2+ b/l Neuro - strength 5/5 x 4 exts; DTRs 2+ b/l Skin - no rash, no jaundice Lymph - no cervical lymph nodes psych - a/o x 3 Principal Diagnosis Acute Pancreatitis, etiology unclear possibly associated with her recent COVID- 19 infection Discharge Exam Vital Signs Temp Pulse Pulse Pulse Resp BP BP 05/17/21 08:00 54 L 05/17/21 07:48 36.8 C 56 L 16 137/77 05/17/21 02:34 36.4 C L 54 L 18 117/72 05/16/21 22:28 36.4 C L 49 L 16 119/57 L Pulse Ox 05/17/21 08:00 05/17/21 07:48 92 05/17/21 02:34 92 05/16/21 22:28 95 GENERAL: 71 yo obese WF. Pleasant, cooperative. NAD. LUNGS: Good air exchange, no conversational dyspnea or accessory muscle use. CTAB. CARDIOVASCULAR: Regular rate and rhythm. No M/G/R. No JVD. ABDOMEN: Soft non-distended, nontender. Neg ramesh's sign. Bowel sounds normoactive x 4 quad. EXTREMITIES: No edema. Non-tender. Peripheral pulses +2/4. PSYCHIATRIC: A&O. Cooperative. Appropriate mood and affect. SKIN: Warm, dry, intact. No rashes or lesions. Discharge Data Allergies Allergy/AdvReac Type Severity Reaction Status Date / Time amlodipine [From Norvasc] Allergy Intermediate severe Verified 05/15/21 13:49 fatigue Bactrim Allergy Intermediate HIVES Verified 02/21/18 15:26 cefdinir Allergy Intermediate Hives Verified 05/15/21 13:49 ezetimibe [From Zetia] Allergy Intermediate myalgia Verified 05/15/21 13:49 glyburide Allergy Intermediate ITCHING Verified 05/15/21 13:49 moxifloxacin Allergy Intermediate Hives Verified 05/15/21 13:49 Penicillins Allergy Intermediate HIVES Verified 05/15/21 13:49 Sulfa (Sulfonamide Allergy Intermediate HIVES Verified 05/15/21 13:49 Antibiotics) sulfamethoxazole Allergy Intermediate HIVES Verified 05/15/21 13:49 trimethoprim Allergy Intermediate HIVES Verified 05/15/21 13:49 bacitracin Allergy Mild skin Verified 05/15/21 13:49 [From Neosporin irritation ([id number])] dog dander Allergy Mild CONGESTION Verified 05/15/21 13:49 mold Allergy Mild CONGESTION Verified 05/15/21 13:49 neomycin Allergy Mild skin Verified 05/15/21 13:49 [From Neosporin irritation ([id number])] pollen extracts Allergy Mild CONGESTION Verified 05/15/21 13:49 polymyxin B Allergy Mild skin Verified 05/15/21 13:49 [From Neosporin irritation ([id number])] Cipro AdvReac Mild HEADACHES Verified 02/21/18 08:53 ciprofloxacin AdvReac Mild HEADACHES Verified 05/15/21 13:49 Quinolones AdvReac Mild HEADACHES Verified 05/15/21 13:49 beta block Allergy Intermediate fatigue Uncoded 05/15/21 13:49 glyburide Allergy Mild itching Uncoded 05/15/21 13:49 Consultations None Ordered Studies Laboratory Results - last 24 hr 05/16/21 05/16/21 05/16/21 11:23 17:36 23:51 WBC RBC Hgb Hct MCV MCH MCHC RDW Std Deviation RDW Coeff of Martin Plt Count MPV Immature Gran % (Auto) Neut % (Auto) Lymph % (Auto) [place] % (Auto) Eos % (Auto) Baso % (Auto) Neut # (Auto) Lymph # (Auto) [place] # (Auto) Eos # (Auto) Baso # (Auto) Immature Gran # (Auto) Sodium Potassium Chloride Carbon Dioxide Anion Gap BUN Creatinine Est Cr Clr Drug Dosing Est GFR ( Amer) Est GFR (Non-Af Amer) BUN/Creatinine Ratio Glucose POC Glucose 127 H 120 H 103 H Calcium Magnesium Lipase 05/17/21 05/17/21 05/17/21 02:47 06:26 06:30 WBC 7.52 RBC 3.87 L Hgb 11.1 L Hct 34.8 L MCV 89.9 MCH 28.7 MCHC 31.9 L RDW Std Deviation 47.5 H RDW Coeff of Martin 14.4 Plt Count 237 MPV 10.2 Immature Gran % (Auto) 0.4 Neut % (Auto) 70.2 Lymph % (Auto) 18.9 [place] % (Auto) 7.8 Eos % (Auto) 2.7 Baso % (Auto) 0.0 Neut # (Auto) 5.28 Lymph # (Auto) 1.42 [place] # (Auto) 0.59 Eos # (Auto) 0.20 Baso # (Auto) 0.00 Immature Gran # (Auto) 0.03 H Sodium Potassium Chloride Carbon Dioxide Anion Gap BUN Creatinine Est Cr Clr Drug Dosing Est GFR ( Amer) Est GFR (Non-Af Amer) BUN/Creatinine Ratio Glucose POC Glucose 95 95 Calcium Magnesium Lipase 05/17/21 06:30 WBC RBC Hgb Hct MCV MCH MCHC RDW Std Deviation RDW Coeff of Martin Plt Count MPV Immature Gran % (Auto) Neut % (Auto) Lymph % (Auto) [place] % (Auto) Eos % (Auto) Baso % (Auto) Neut # (Auto) Lymph # (Auto) [place] # (Auto) Eos # (Auto) Baso # (Auto) Immature Gran # (Auto) Sodium 139 Potassium 3.9 Chloride 109 H Carbon Dioxide 23 Anion Gap 7.0 BUN 10 D Creatinine 0.65 Est Cr Clr Drug Dosing 92.2 Est GFR ( Amer) 104.3 Est GFR (Non-Af Amer) 90.0 BUN/Creatinine Ratio 15.0 Glucose 98 POC Glucose Calcium 7.9 L Magnesium 2.2 Lipase 201 Chest X-Ray 05/15/21 12:25 XR chest 1V portable CLINICAL HISTORY: Atypical chest pain. COMPARISON STUDY: Chest radiograph and chest CT May 06, 2021. FINDINGS: There is no pneumothorax or pleural effusion. Cardiomegaly is unchanged. Bilateral airspace opacities are noted. These have improved since prior chest radiograph and chest CT of May 06, 2021. IMPRESSION: Bilateral airspace opacities suggestive of viral pneumonia. These have mildly improved since prior chest CT and chest radiograph May 06, 2021. ACT 112: Negative or not required by law. Electronically signed by: Evaristo Villanueva M.D. 05/15/2021 1:18 PM Abdomen/Pelvis CT 05/15/21 12:48 CT abd pelvis IV con only CLINICAL HISTORY: Upper abdominal pain TECHNIQUE: Helical axial images of the abdomen and pelvis were obtained and displayed. Automated dose lowering techniques and/or adjustment according to patient size were utilized for this exam. This exam was performed with intravenous contrast. COMPARISON: Comparison is made to CT abdomen pelvis on 2017 FINDINGS: Lower chest: Interstitial opacities are seen which may represent atelectasis versus scarring. Cardiomegaly is seen. Liver: Unremarkable. No focal lesions are seen. Gallbladder and biliary tree: No calcified gallstones. Normal caliber wall. No intra- or extrahepatic biliary ductal dilation. Pancreas: There is mild fat stranding about the pancreatic head with hypodensity of the underlying pancreas. Spleen: Unremarkable. Adrenals: Unremarkable. Kidneys and ureters: Exophytic cyst with a punctate peripheral calcification is seen in the right kidney. Subcentimeter hypodensities are seen likely representing cysts. Bladder: Unremarkable. Reproductive organs: Patient is status post hysterectomy. Bowel: Unremarkable. Lymph nodes Retroperitoneal: Unremarkable. Mesenteric: Unremarkable. Pelvic: Unremarkable. Peritoneum: Normal Vessels: Atherosclerotic calcifications are seen. Abdominal wall: Injection granulomata are seen. An umbilical hernia is seen. Bones: Degenerative changes in the visualized spine. Coarsening of the trabeculation is seen most prominently in the sacrum, comparable to prior exam. IMPRESSION: 1. Subtle edema and stranding about the pancreatic head, likely representing acute pancreatitis. 2. Findings of Paget's disease most prominent in the sacrum. 3. Extensive interstitial reticular densities in the lungs which may represent atelectasis versus scarring. 4. Additional findings as above. ACT 112: Negative or not required by law. Electronically signed by: Doni Ceja M.D. 05/15/2021 2:56 PM Gallbladder Ultrasound 05/15/21 17:47 US gallbladder CLINICAL HISTORY: acute pancreatitis, RUQ pain; eval cholecystitis COMPARISON STUDY: Right upper quadrant ultrasound September 11, 2020. CT of the abdomen and pelvis performed earlier today. FINDINGS: The pancreas is largely obscured on this exam. No hepatic lesions are identified. Hepatic echogenicity is at the upper limits of normal. There is no biliary ductal dilatation. The common bile duct measures 3 mm in caliber. The gallbladder is normal. There are no gallstones. There is no right hydronephrosis. Note is made of a 3 cm cyst within the midpole of the right kidney. IMPRESSION: 1. No gallstones or biliary ductal dilatation. 2. Largely obscured pancreas. ACT 112: Negative or not required by law. Electronically signed by: Evaristo Villanueva M.D. 05/15/2021 8:18 PM Hospital Course (1) Acute pancreatitis: Patient hospitalized for AP which was supported by clinical presentation, laboratory and radiologic findings. Pt was kept strictly NPO. IVF hydration was initiated with LR, cautiously due to recent COVID infection and tendency for these individuals to become easily volume overloaded. Pain control was ordered with Dilaudid. Antiemetics and PPI were also ordered. Etiology of acute pancreatitis unclear, could be related to recent COVID infection. Patient denies etoh. Her TG marginally high at 160, but certainly not high enough to induce AP. Calcium wnl. RUQ U/S obtained and no evidence of cholecystitis/cholelithiasis/CBD. LFTs WNL. Lipase was trended, on following AM after admission, lipase down to 1100. She was kept NPO until evening of 05/16 and then allowed ice chips and small sips of clears as she remained pain free and w/o nausea. She tolerated ice chips without issue. This morning, 05/17, pt verbalizes no further complaints of pain/nausea. She has responded favorably to conservative treatment measures. Diet has been advanced to clear liquids and she tolerated it well. Continues to deny abd pain or n/v. Follow up this afternoon, pt still tolerating clear liquids, can advance back to regular diabetic diet as tolerated at home this evening. (2) Pneumonia due to COVID-19 virus: Clinically resolving; radiographically resolving. Stable on room air. She is 15+ days into her illness course with significant pulmonary improvement, no longer requires isolation. Completed course of Decadron. (3) Orthostasis: Patient was orthostatic in ED. BP meds (JOSE MANUEL) was held. Received IVF. Her BP appears to have responded nicely. Orthostatic VS have been ordered but I cannot see where they were repeated in the chart. She denies lightheadedness/dizziness. Will resume her Quinapril at reduced dose of 20mg daily. Would recommend BP monitoring at home and PCP follow up. (4) Diabetes mellitus type 2, uncontrolled: Pt having episodes of hyperglycemia prior to admission, secondary to recent steroids, recent COVID-19 illness, and stress of #1. Glycemic consult placed to pharmacy, appreciate their assistance in managing. Appears they d/c'd her Lantus d/t her being NPO and provided coverage ac and hs. Recent a1c noted to be >9%. This AM, FBS was 98. D/W pharmacy, will resume her Lantus at lower dose 15 units at HS and her Humalog AC reduced also to 6 units with meals to start. Can follow up with her family doctor and make further adjustments in mealtime insulin based on blood glucose readings. (5) Asthma: No exacerbation at this time. Albuterol ordered prn. Continue flovent BID. (6) Hypertension: See #3. Resume reduced dose of Quinapril. Outpatient follow up. (7) Hyperlipidemia: Can resume statin as prescribed. (8) Dehydration: Clinically resolved. (9) GERD (gastroesophageal reflux disease): Continue PPI as prescribed. (10) Paget's bone disease: Seen incidentally on CT of the abd/pelvis. Will need f/u for this with her PCP. (11) Hyponatremia: Resolved s/p IVF. Patient is medically and hemodynamically stable for discharge home today. Advise pcp follow up within 1 week of d/c. Pt also established with GI, would recommend follow up within 2-4 weeks. 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 Take all medications as directed. 2. Slowly advance diet back to regular (diabetic) as tolerated. 3. Follow up with your commissioned police officer as scheduled. 4. Follow up with your primary care provider within 1 week of discharge. Pending Studies at Discharge: No Stand-Alone Forms: [facility] [employer], Smoking Cessation Medications and DC Order Prescriptions: New quinapril 20 mg tablet 20 mg PO DAILY Qty: 30 RF: 0 Continued pantoprazole 40 mg tablet,delayed release (DR/EC) 40 mg PO HS Qty: 90 RF: 3 pravastatin 20 mg tablet 20 mg PO MOWEFRSA@09 RF: 0 triamcinolone acetonide 0.1 % ointment 1 applic topical BID PRN (Reason: Rash) RF: 0 ketotifen fumarate [Zaditor] 0.025 % (0.035 %) drops 1 drp ophthalmic (eye) Q8H PRN (Reason: ALLERGY RELIEF) RF: 0 hydrocortisone-acetic acid 1-2 % drops 5 drp otic (ear) TID PRN (Reason: Pain and drainage) Qty: 10 RF: 5 Flovent HFA 44 mcg/actuation Hfa Aerosol Inhaler 2 inh INHALATION BID RF: 0 fluticasone propionate [Flonase Allergy Relief] 50 mcg/actuation [place],Suspension 2 spray INTRANASAL BID PRN (Reason: Congestion) RF: 0 coenzyme Q10 [CoQ-10] 100 mg Capsule 100 mg PO QAM RF: 0 Cipro HC 0.2-1 % drops,suspension 4 drp otic (ear) BID PRN (Reason: Pain) RF: 0 ondansetron 4 mg tablet,disintegrating 4 mg PO Q8H PRN (Reason: Nausea) RF: 0 polyethylene glycol 3350 [Miralax] 17 gram/dose Powder 17 g PO QAM PRN (Reason: Constipation) RF: 0 dicyclomine 10 mg capsule 10 mg PO BID RF: 0 Changed Lantus Solostar U-100 Insulin 100 unit/mL (3 mL) Insulin Pen 15 unit SUBCUT HS Qty: 0 RF: 0 insulin lispro [Humalog U-100 Insulin] 100 unit/mL solution 6 unit subcut TIDM Qty: 0 RF: 0 Discontinued quinapril 40 mg Tablet 40 mg PO QAM RF: 0 dexamethasone 6 mg tablet 6 mg PO DAILY Qty: 3 RF: 0 Discharge Orders: Discharge Order (Routine); Ordered 05/17/21 Ordered By: Elizabeth Thomson/Other Patient Handouts: Understanding Pancreatitis Admission Data Admit Date/Time: 05/15/21 17:58 Attending Provider: Gio Kinney Admit Provider: John Mensah Primary Care Provider: Katalina Miller Other Providers: John Mensah Coding Level of Care Code D/C DAY MANAGEMENT >30 MINS Diagnoses Acute pancreatitis K85.90 Acute pancreatitis complication: unspecified Pancreatitis type: unspecified pancreatitis type Pneumonia due to COVID-19 virus U07.1; J12.82 Orthostasis I95.1 Diabetes mellitus type 2, uncontrolled E11.65 Asthma J45.909 Hypertension I10 Hyperlipidemia E78.5 Dehydration E86.0 GERD (gastroesophageal reflux disease) K21.9 Paget's bone disease M88.9 Hyponatremia E87.1
[2021-05-17] MEDS: PANTOprazole 40 MG in SYRINGE 0 ML IV SCH (12:12)
[2021-05-17] MEDS ORDERED: DICYCLOMINE HCL 10 MG CAP PO ONE (15:05)
[2021-05-17] MEDS: DICYCLOMINE HCL 10 MG CAP PO SCH (21:30)
[2021-05-18] MEDS: INSULIN ASPART 100 UNITS/ML 3 ML PEN SC SCH (05:50)
[2021-05-18] MEDS: HEPARIN SOD 5,000 UNIT/0.5 ML VIAL SQ SCH (05:52)
[2021-05-18] MEDS ORDERED: INSULIN ASPART 100 UNITS/ML 3 ML PEN SC SCH (07:30)
[2021-05-18] MEDS: DICYCLOMINE HCL 10 MG CAP PO SCH (07:46)
[2021-05-18] MEDS: FLUTICASONE FUROATE 100MCG 14 PUFFS/INHALER INH SCH (07:47)
[2021-05-18] MEDS ORDERED: ENALAPRIL MALEATE 10 MG TAB PO SCH (09:00)
== END 2021-05-18 10:51 | disposition home or self-care (01) ==
LOC: ED 12:11 → SUATTDRO 17:58 → INTOOBSV 17:58 → EDINP 17:58 → 2S 20:36